=== PATIENT | male | born 1945 | race Caucasian/White ===

== ENCOUNTER 2020-06-15 13:41 | Outpatient (REF) | payer OTHER, SELFPAY | END 2020-06-15 13:42 | disposition home or self-care (01) | LOC: HO.HMGCLDS 13:41 | PROVIDERS: PCP Internal Medicine; Visit Provider Internal Medicine | DX: R30.0 Dysuria (principal) | CPT/HCPCS: 87086 ==

== ENCOUNTER 2023-01-12 12:46 | Outpatient (REF) | payer OTHER, SELFPAY ==
--- NOTE | ~2023-01-12 | US_ITS ---
EXAMINATION: US VENOUS ULTRASOUND WITH DOPPLER LOWER EXTREMITY, LEFT CLINICAL INFORMATION: Leg pain. Rule out DVT. COMPARISON: None available. TECHNIQUE: Ultrasound of the deep veins is performed from the hip to the calf with compression sonography and color and pulse Doppler assessment. Spectral analysis with color-flow imaging is performed. FINDINGS: There is thrombus seen in the left greater saphenous vein extending to the saphenofemoral junction suggestive of acute superficial thrombophlebitis. The left common femoral, superficial femoral, profunda, popliteal and visualized peroneal and posterior tibial veins in the calf are patent. No Au's cyst. US/US venous duplex LE LT IMPRESSION: No DVT demonstrated in the left lower extremity. There is superficial thrombophlebitis of the left greater saphenous vein in the thigh extending to the saphenofemoral junction. Findings were communicated to Kamar Layton by the staff cytotechnologist at the conclusion of the exam on 01/12/2023 at 1:15 PM.
== END 2023-01-12 12:47 | disposition home or self-care (01) ==
LOC: HO.US 12:46
PROVIDERS: PCP Registered Nurse; Visit Provider Emergency Medicine
DX: M79.605 Pain in left leg (principal)
CPT/HCPCS: 93971

== ENCOUNTER 2023-01-12 13:42 | Emergency (ER) | payer OTHER, SELFPAY ==
[2023-01-12 13:46] VITALS: BP 198/88; PULSE 71; RESP 18; TEMP 36.6; O2SAT 98; BMI 33.5
--- NOTE | 2023-01-12 13:46 | ECG_ITS ---
Test Reason : DVT Blood Pressure : / mmHG Vent. Rate : 069 BPM Atrial Rate : 069 BPM P-R Int : 184 ms QRS Dur : 134 ms QT Int : 424 ms P-R-T Axes : 038 -05 011 degrees QTc Int : 454 ms Normal sinus rhythm Right bundle branch block Abnormal ECG No previous ECGs available Referred By: Adan Cao Electronically Signed By:JARVIS PLAZA
--- NOTE | 2023-01-12 13:51 | ED_ITS ---
HPI - General Adult General Chief complaint: Extremity Injury, Lower <Adan Cao - Last Filed: 01/12/23 13:56> Stated complaint: dvt l leg sent in by pcp <Adan Cao - Last Filed: 01/12/23 13:56> Time Seen by Provider: 01/12/23 15:04 <Adan Cao - Last Filed: 01/12/23 13:56> Source: patient <KERRY Flores Last Filed: 01/12/23 17:41> Mode of arrival: ambulatory <KERRY Flores Last Filed: 01/12/23 17:41> Limitations: no limitations <KERRY Flores Last Filed: 01/12/23 17:41> History of Present Illness HPI narrative: Patient is a 77 year old assigned male at with a history of cardiac stents presenting to the emergency department today with a positive left lower leg DVT study. Patient states that he was sent for an US of his left lower leg by his PCP and then he was called and told that it was positive for a DVT. Patient states he was previously on blood thinners but has not been on them for a year at this point. Patient denies any dizziness, lightheadedness, abdominal pain, nausea, vomiting, fever, chills, blurry vision, double vision, loss of vision, chest pain, difficulty breathing, shortness of breath, back pain, night sweats, pain with urination, increased urinary frequency, increased urinary urgency, blood in his urine or stool, syncope or a near syncopal episode, recent trauma or falls, bowel incontinence, bladder incontinence, bowel retention, bladder retention, or any other complaints at this time. <KERRY Flores - Last Filed: 01/12/23 17:41> Associated symptoms: denies other symptoms <KERRY Flores Last Filed: 01/12/23 17:41> Treatments prior to arrival: none <KERRY Flores Last Filed: 01/12/23 17:41> Related Data Home medications: Previous Rx's Medication Instructions Recorded apixaban 5 mg (74 tabs) tablets in 5 mg PO BID #74 ea 01/12/23 a dose pack (Eliquis DVT-PE Treat 30D Start) <Adan Bailey Last Filed: 01/12/23 13:56> Allergies/adverse reactions: Allergies Allergy/AdvReac Type Severity Reaction Status Date / Time atorvastatin Allergy Unknown Verified 01/12/23 13:46 <Adan Cao - Last Filed: 01/12/23 13:56> Review of Systems Constitutional: Constitutional: Reports no additional constitutional complaints, Denies chills, Denies fever(s) and Denies night sweats <KERRY Flores - Last Filed: 01/12/23 17:41> Eyes: Eyes: Reports no additional eye complaints, Denies blurry vision, Denies change in vision, Denies diplopia, Denies eye discharge, Denies loss of vision and Denies eye pain <KERRY Flores - Last Filed: 01/12/23 17:41> ENT: Denies dizziness <KERRY Flores - Last Filed: 01/12/23 17:41> Cardiovascular: Cardiovascular: Reports no additional cardiovascular complaints, Denies chest pain, Denies lightheadedness, Denies Loss of Consciousness and Denies dyspnea <KERRY Flores - Last Filed: 01/12/23 17:41> Respiratory: Respiratory: Reports no additional respiratory complaints and Denies dyspnea <KERRY Flores - Last Filed: 01/12/23 17:41> Gastrointestinal: Gastrointestinal: Reports no additional gastrointestinal complaints, Denies abdominal pain, Denies melena, Denies hematochezia, Denies change in bowel habits and Denies change in stool character <KERRY Flores - Last Filed: 01/12/23 17:41> Genitourinary: Genitourinary: Reports no additional male genitourinary complaints, Denies hematuria, Denies oliguria, Denies difficulty urinating, Denies dysuria, Denies urinary frequency, Denies urinary hesitancy, Denies uri nary incontinence and Denies urinary urgency <KERRY Flores - Last Filed: 01/12/23 17:41> Musculoskeletal: Musculoskeletal: Reports no additional musculoskeletal complaints, Denies numbness and Denies tingling <KERRY Flores - Last Filed: 01/12/23 17:41> Neurologic: Denies dizziness, Denies loss of vision, Denies numbness and Denies tingling <KERRY Flores - Last Filed: 01/12/23 17:41> Psychiatric: Psychiatric: Reports no additional psychiatric complaints <KERRY Flores - Last Filed: 01/12/23 17:41> Endocrine: Endocrine: Reports no additional endocrine complaints <KERRY Flores - Last Filed: 01/12/23 17:41> Hematologic/Lymphatic: Hematologic/Lymphatic: Reports no additional h ematologic/lymphatic complaints <KERRY Flores - Last Filed: 01/12/23 17:41> Allergic/Immunologic: Allergic/Immunologic: Reports no additional allergic/immunologic complaints <KERRY Flores - Last Filed: 01/12/23 17:41> PMF Past Medical History Attestation statement: The following information was validated with the patient. <KERRY Flores - Last Filed: 01/12/23 17:41> Source: old records reviewed and nursing notes reviewed <KERRY Flores - Last Filed: 01/12/23 17:41> Social History Social History: Social History Smoked in Last 30 Days: No Use of substances other than those prescribed or required for medical reasons: No Advance Directives: No Advance Directives Information Provided: Yes <Adan Cao - Last Filed: 01/12/23 13:56> Physical Exam ED Vital Signs: Vital Signs - 24 hr 01/12/23 13:46 01/12/23 15:22 Temperature 98 F 97.2 F Pulse Rate 71 66 Respiratory Rate 18 16 Blood Pressure 198/88 H 140/60 H Pulse Oximetry 98 98 Oxygen Delivery Method Room Air BMI result Body Mass Index 33.5 <Adan Cao - Last Filed: 01/12/23 13:56> Vital Signs - 24 hr 01/12/23 13:46 01/12/23 15:22 Temperature 98 F 97.2 F Pulse Rate 71 66 Respiratory Rate 18 16 Blood Pressure 198/88 H 140/60 H Pulse Oximetry 98 98 Oxygen Delivery Method Room Air BMI result Body Mass Index 33.5 <KERRY Flores - Last Filed: 01/12/23 17:41> Const General: cooperative, no acute distress, alert and awake <Nisha Oconnor PA - Last Filed: 01/12/23 17:41> Nutritional Appearance: well nourished <Nisha OconnorKERRY lizarraga - Last Filed: 01/12/23 17:41> Orientation/consciousness: patient oriented x3 <Nisha Galanelham ME - Last Filed: 01/12/23 17:41> Limitations: no limitations <KERRY Flores - Last Filed: 01/12/23 17:41> HENMT Head: Yes normal to inspection and Yes atraumatic <Nisha Galanelham ME - Last Filed: 01/12/23 17:41> Ears: hearing grossly normal bilaterally and external ears normal <Nisha Oconnor PA - Last Filed: 01/12/23 17:41> General nose exam: Normal external nose present, no nasal discharge noted and no epistaxis <Nisha Oconnor PA - Last Filed: 01/12/23 17:41> Face and sinus: Yes normal facial exam, No abrasion and No laceration <Nisha Oconnor ME - Last Filed: 01/12/23 17:41> Mouth: Normal oral and palatal mucosa present, no drooling and no muffled voice <Nisha Oconnor PA - Last Filed: 01/12/23 17:41> Eyes General: appearance normal, both eyes and all related structures <Nisha Oconnor PA - Last Filed: 01/12/23 17:41> Periorbital: periorbital findings normal <Nisha Oconnor PA - Last Filed: 01/12/23 17:41> Eyelids: Yes eyelids normal <Nisha Oconnor PA - Last Filed: 01/12/23 17:41> Conjunctivae: conjunctivae normal <Nisha Oconnor PA - Last Filed: 01/12/23 17:41> Pupils: Equal, round and reactive pupils present <Nisha Oconnor PA - Last Filed: 01/12/23 17:41> EOM: EOMs intact bilaterally <Nisha Anastasia PA - Last Filed: 01/12/23 17:41> Neck Neck: Yes normal visual inspection, Yes full ROM and Yes no lymphadenopathy <Javier rudy Oconnor PA - Last Filed: 01/12/23 17:41> Chest Chest palpation & inspection: normal inspection of the chest <Nisha OconnorKERRY - Last Filed: 01/12/23 17:41> Resp Effort & Inspection: normal respiratory effort and able to speak in complete sentences <Nisha OconnorKERRY - Last Filed: 01/12/23 17:41> Auscultation: clear to auscultation bilaterally <Nisha OconnorKERRY - Last Filed: 01/12/23 17:41> Cardio Rate: regular rate <Nisha OconnorKERRY - Last Filed: 01/12/23 17:41> Rhythm: regular rhythm <Nisha Oconnor PA - Last Filed: 01/12/23 17:41> GI Inspection: Yes normal to inspection <Nisha OconnorKERRY - Last Filed: 01/12/23 17:41> Neuro General: patient oriented x3 and moves all extremities <Nisha OocnnorKERRY - Last Filed: 01/12/23 17:41> Cranial nerves: Yes Equal, round and reactive pupils present <Nisha OconnorKERRY - Last Filed: 01/12/23 17:41> Cognition (Neuro): normal cognition <Nisha OconnorKERRY - Last Filed: 01/12/23 17:41> Motor exam (neuro): 5/5 motor strength present throughout <Nisha OconnorKERRY - Last Filed: 01/12/23 17:41> Sensory Exam: Normal double simultaneous stimulation for sensation <Nisha OconnorKERRY - Last Filed: 01/12/23 17:41> Coordination: [id number] test normal <Nisha OconnorKERRY - Last Filed: 01/12/23 17:41> Extrem General: Yes normal to inspection, Yes full ROM and Yes capillary refill normal <Nisha OconnorKERRY - Last Filed: 01/12/23 17:41> Psych Appearance: grossly normal <Nisha GalanKERRY lizarraga - Last Filed: 01/12/23 17:41> Mental Status: mental status grossly normal <Nisha OconnorKERRY - Last Filed: 01/12/23 17:41> Affect: normal affect <Nisha OconnorKERRY - Last Filed: 01/12/23 17:41> Attitude: cooperative <Nisha GalanKERRY lizarraga - Last Filed: 01/12/23 17:41> Thought process: Normal thought process present <KERRY Flores - Last Filed: 01/12/23 17:41> Thought content: Normal thought content present <KERRY Flores - Last Filed: 01/12/23 17:41> Insight: Good insight present (Psych) <KERRY Flores - Last Filed: 01/12/23 17:41> Course Course Course Narrative: 77 year old male presents for evaluation of a positive left lower extremity DVT in the greater saphenous vein as an outpatient. He is on a baby aspirin only and not anticoagulated. He reports he was anticoagulated up until last year. The patient reports pain and swelling to his left leg. Denies any chest pain shortness of breath with. He is presenting from [facility] and follows with [facility] <Adan Cao - Last Filed: 01/12/23 13:56> Medical Decision Making Medical Decision Making MDM Narrative: Patient is a 77 year old assigned male at with a history of cardiac stents presenting to the emergency department today with left lower leg DVT. Patient's physical exam was unremarkable. Patient's blood work was unremarkable. Patient's left lower extremity US showed a DVT. I explained my physical exam findings as well as all test results to the patient. I answered all questions asked by the patient. I stressed the importance of the patient taking his medication as prescribed. I stressed the importance of the patient following up with his primary care provider. I stressed the importance of the patient returning to the emergency department immediately if his symptoms were to worsen or if he were to develop any dizziness, shortness of breath, difficulty breathing, chest pain, blurry vision, loss of vision, nausea, vomiting, abdominal pain, fever, chills, back pain, or any other complaints. Patient verbalized agreement and understanding with this treatment plan and discharge. <KERRY Flores - Last Filed: 01/12/23 17:41> Differential Diagnosis Differential Diagnoses: The differential diagnosis associated with the presentation includes <KERRY Flores - Last Filed: 01/12/23 17:41> left lower extremity DVT <KERRY Flores - Last Filed: 01/12/23 17:41> Lab Data MDM Lab Attestation statement: I reviewed the patient's lab results. <KERRY Flores - Last Filed: 01/12/23 17:41> Result Diagrams: 01/12/23 14:03 01/12/23 14:03 <Adan Cao - Last Filed: 01/12/23 13:56> Labs: Lab Results 01/12/23 01/12/23 01/12/23 Range/Units 14:03 14:03 14:03 WBC 6.7 (4.8-10.8) X10*3/uL RBC 4.44 L (4.60-5.80) X10*6/uL Hgb 13.0 L (14.0-18.0) g/dl Hct 39.7 L (42.0-52.0) % MCV 89.4 (80.0-98.0) fL MCH 29.3 (27.0-33.0) pg MCHC 32.7 (31.0-36.0) g/dl RDW 13.7 (11.0-16.0) % Plt Count 253 (160-400) X10*3/uL MPV 10.9 (9.4-12.4) fL Immature Gran % (Auto) 0.4 (0.0-0.4) % Neut % (Auto) 61.3 (45-73) % Lymph % (Auto) 26.3 (20-40) % [place] % (Auto) 9.9 (2-11) % Eos % (Auto) 1.8 (0-4) % Baso % (Auto) 0.3 (0-2) % Lymph # (Auto) 1.8 (1.2-4.9) X10*3/uL [place] # (Auto) 0.7 (0.1-1.2) X10*3/uL Eos # (Auto) 0.1 (0.0-0.4) X10*3/uL Baso # (Auto) 0.0 (0.0-0.2) X10*3/uL Abs Immat Gran (auto) 0.03 (0.00-0.03) X10*3/uL Absolute Neuts (auto) 4.1 (2.0-8.3) x10*3/uL Absolute Nucleated RBC 0.000 (0.0-0.012) X10*3/uL Nucleated RBC % (auto) 0.0 (0.0-0.2) /100WBC PT 10.8 (10.0-13.1) SEC INR 0.9 (0.9-1.1) APTT 28.9 (26.0-36.4) SEC Sodium 140 (135-145) mmol/L Potassium 4.4 (3.3-5.1) mmol/L Chloride 106 (96-108) mmol/L Carbon Dioxide 25 (22-29) mmol/L Anion Gap 13 (12-20) BUN 30 H (9-16) mg/dL Creatinine 1.49 H (0.5-1.4) mg/dL Estim Creat Clear Calc 49.1 Estimated GFR 46 Random Glucose 101 (60-115) mg/dL Calcium 10.2 (8.4-10.2) mg/dL Total Bilirubin 0.4 (0.0-1.0) mg/dL AST 20 (5-37) U/L ALT 15 (0-40) U/L Alkaline Phosphatase 28 L (39-117) U/L Troponin I High Sens (<3.5-35.0) ng/L B-Natriuretic Peptide (<100) pg/mL Total Protein 7.0 (6.5-8.0) g/dL Albumin 4.1 (3.5-5.0) g/dL Lipase 48 (8-78) U/L 01/12/23 01/12/23 Range/Units 14:03 14:03 WBC (4.8-10.8) X10*3/uL RBC (4.60-5.80) X10*6/uL Hgb (14.0-18.0) g/dl Hct (42.0-52.0) % MCV (80.0-98.0) fL MCH (27.0-33.0) pg MCHC (31.0-36.0) g/dl RDW (11.0-16.0) % Plt Count (160-400) X10*3/uL MPV (9.4-12.4) fL Immature Gran % (Auto) (0.0-0.4) % Neut % (Auto) (45-73) % Lymph % (Auto) (20-40) % [place] % (Auto) (2-11) % Eos % (Auto) (0-4) % Baso % (Auto) (0-2) % Lymph # (Auto) (1.2-4.9) X10*3/uL [place] # (Auto) (0.1-1.2) X10*3/uL Eos # (Auto) (0.0-0.4) X10*3/uL Baso # (Auto) (0.0-0.2) X10*3/uL Abs Immat Gran (auto) (0.00-0.03) X10*3/uL Absolute Neuts (auto) (2.0-8.3) x10*3/uL Absolute Nucleated RBC (0.0-0.012) X10*3/uL Nucleated RBC % (auto) (0.0-0.2) /100WBC PT (10.0-13.1) SEC INR (0.9-1.1) APTT (26.0-36.4) SEC Sodium (135-145) mmol/L Potassium (3.3-5.1) mmol/L Chloride (96-108) mmol/L Carbon Dioxide (22-29) mmol/L Anion Gap (12-20) BUN (9-16) mg/dL Creatinine (0.5-1.4) mg/dL Estim Creat Clear Calc Estimated GFR Random Glucose (60-115) mg/dL Calcium (8.4-10.2) mg/dL Total Bilirubin (0.0-1.0) mg/dL AST (5-37) U/L ALT (0-40) U/L Alkaline Phosphatase (39-117) U/L Troponin I High Sens 3.1 (<3.5-35.0) ng/L B-Natriuretic Peptide 73 (<100) pg/mL Total Protein (6.5-8.0) g/dL Albumin (3.5-5.0) g/dL Lipase (8-78) U/L <Adan Cao - Last Filed: 01/12/23 13:56> Lab Results 01/12/23 01/12/23 01/12/23 Range/Units 14:03 14:03 14:03 WBC 6.7 (4.8-10.8) X10*3/uL RBC 4.44 L (4.60-5.80) X10*6/uL Hgb 13.0 L (14.0-18.0) g/dl Hct 39.7 L (42.0-52.0) % MCV 89.4 (80.0-98.0) fL MCH 29.3 (27.0-33.0) pg MCHC 32.7 (31.0-36.0) g/dl RDW 13.7 (11.0-16.0) % Plt Count 253 (160-400) X10*3/uL MPV 10.9 (9.4-12.4) fL Immature Gran % (Auto) 0.4 (0.0-0.4) % Neut % (Auto) 61.3 (45-73) % Lymph % (Auto) 26.3 (20-40) % [place] % (Auto) 9.9 (2-11) % Eos % (Auto) 1.8 (0-4) % Baso % (Auto) 0.3 (0-2) % Lymph # (Auto) 1.8 (1.2-4.9) X10*3/uL [place] # (Auto) 0.7 (0.1-1.2) X10*3/uL Eos # (Auto) 0.1 (0.0-0.4) X10*3/uL Baso # (Auto) 0.0 (0.0-0.2) X10*3/uL Abs Immat Gran (auto) 0.03 (0.00-0.03) X10*3/uL Absolute Neuts (auto) 4.1 (2.0-8.3) x10*3/uL Absolute Nucleated RBC 0.000 (0.0-0.012) X10*3/uL Nucleated RBC % (auto) 0.0 (0.0-0.2) /100WBC PT 10.8 (10.0-13.1) SEC INR 0.9 (0.9-1.1) APTT 28.9 (26.0-36.4) SEC Sodium 140 (135-145) mmol/L Potassium 4.4 (3.3-5.1) mmol/L Chloride 106 (96-108) mmol/L Carbon Dioxide 25 (22-29) mmol/L Anion Gap 13 (12-20) BUN 30 H (9-16) mg/dL Creatinine 1.49 H (0.5-1.4) mg/dL Estim Creat Clear Calc 49.1 Estimated GFR 46 Random Glucose 101 (60-115) mg/dL Calcium 10.2 (8.4-10.2) mg/dL Total Bilirubin 0.4 (0.0-1.0) mg/dL AST 20 (5-37) U/L ALT 15 (0-40) U/L Alkaline Phosphatase 28 L (39-117) U/L Troponin I High Sens (<3.5-35.0) ng/L B-Natriuretic Peptide (<100) pg/mL Total Protein 7.0 (6.5-8.0) g/dL Albumin 4.1 (3.5-5.0) g/dL Lipase 48 (8-78) U/L 01/12/23 01/12/23 Range/Units 14:03 14:03 WBC (4.8-10.8) X10*3/uL RBC (4.60-5.80) X10*6/uL Hgb (14.0-18.0) g/dl Hct (42.0-52.0) % MCV (80.0-98.0) fL MCH (27.0-33.0) pg MCHC (31.0-36.0) g/dl RDW (11.0-16.0) % Plt Count (160-400) X10*3/uL MPV (9.4-12.4) fL Immature Gran % (Auto) (0.0-0.4) % Neut % (Auto) (45-73) % Lymph % (Auto) (20-40) % [place] % (Auto) (2-11) % Eos % (Auto) (0-4) % Baso % (Auto) (0-2) % Lymph # (Auto) (1.2-4.9) X10*3/uL [place] # (Auto) (0.1-1.2) X10*3/uL Eos # (Auto) (0.0-0.4) X10*3/uL Baso # (Auto) (0.0-0.2) X10*3/uL Abs Immat Gran (auto) (0.00-0.03) X10*3/uL Absolute Neuts (auto) (2.0-8.3) x10*3/uL Absolute Nucleated RBC (0.0-0.012) X10*3/uL Nucleated RBC % (auto) (0.0-0.2) /100WBC PT (10.0-13.1) SEC INR (0.9-1.1) APTT (26.0-36.4) SEC Sodium (135-145) mmol/L Potassium (3.3-5.1) mmol/L Chloride (96-108) mmol/L Carbon Dioxide (22-29) mmol/L Anion Gap (12-20) BUN (9-16) mg/dL Creatinine (0.5-1.4) mg/dL Estim Creat Clear Calc Estimated GFR Random Glucose (60-115) mg/dL Calcium (8.4-10.2) mg/dL Total Bilirubin (0.0-1.0) mg/dL AST (5-37) U/L ALT (0-40) U/L Alkaline Phosphatase (39-117) U/L Troponin I High Sens 3.1 (<3.5-35.0) ng/L B-Natriuretic Peptide 73 (<100) pg/mL Total Protein (6.5-8.0) g/dL Albumin (3.5-5.0) g/dL Lipase (8-78) U/L <KERRY Flores - Last Filed: 01/12/23 17:41> Independent Interpretation I performed an independent interpretation of an: Ultrasound <KERRY Flores - Last Filed: 01/12/23 17:41> Interpretation: My interpretation: Left lower extremity DVT <KERRY Flores - Last Filed: 01/12/23 17:41> Discharge Plan Discharge Clinical Impression: DVT (deep venous thrombosis) <Adan Cao - Last Filed: 01/12/23 13:56> Patient Disposition: Home, Self-Care <Adan Cao - Last Filed: 01/12/23 13:56> Instructions: Deep Vein Thrombosis (ED), Safe Use of Anticoagulants (ED), Blood Thinners (ED) <Adan Cao - Last Filed: 01/12/23 13:56> Additional Instructions: Follow up with your primary care provider. Return to the emergency department immediately if your symptoms worsen or if you develop any dizziness, shortness of breath, difficulty breathing, chest pain, blurry vision, loss of vision, nausea, vomiting, abdominal pain, fever, chills, back pain, or any other complaints. <Adan Cao - Last Filed: 01/12/23 13:56> Prescriptions: New Eliquis DVT-PE Treat 30D Start 5 mg (74 tabs) tablets,dose pack 5 mg PO BID Qty: 74 0RF Rx Instructions: Take 10mg (2 tablets) twice daily for 7 days followed by 5mg (1 tablet) twice daily <Adan Cao - Last Filed: 01/12/23 13:56> Referrals: Reanna Vallejo, [employer]PERVISOR [Primary Care Provider] - <Adan Cao - Last Filed: 01/12/23 13:56> Stand Alone Forms: Work/School Release <Adan Cao - Last Filed: 01/12/23 13:56> Interventions: ED Discharge Assessment Last Done: 01/12/23 15:28 <Adan Cao - Last Filed: 01/12/23 13:56> Discharge Date/Time: 01/12/23 15:29 <Adan Cao - Last Filed: 01/12/23 13:56> Print Language: Romansh <Adan Cao - Last Filed: 01/12/23 13:56>
[2023-01-12 14:10] LABS: MANUAL DIFF FLAG NO
[2023-01-12 14:15] LABS: Basophils Percent Auto 0.3 % (0-2); Eosinophils Absolute Auto 0.1 X10*3/uL (0.0-0.4); Eosinophils Percent Auto 1.8 % (0-4); Hematocrit 39.7 % (42.0-52.0); Imm Gran Abs Auto 0.03 X10*3/uL (0.00-0.03); Imm Gran Pct Auto 0.4 % (0.0-0.4); Lymphocytes Absolute Auto 1.8 X10*3/uL (1.2-4.9); Lymphocytes Percent Auto 26.3 % (20-40); Mean Corpuscular HGB Conc 32.7 g/dl (31.0-36.0); Mean Corpuscular Hemoglobin 29.3 pg (27.0-33.0); Mean Corpuscular Volume 89.4 fL (80.0-98.0); Mean Platelet Volume 10.9 fL (9.4-12.4); Monocytes Absolute Auto 0.7 X10*3/uL (0.1-1.2); Monocytes Percent Auto 9.9 % (2-11); Neutrophils Absolute Auto 4.1 x10*3/uL (2.0-8.3); Neutrophils Percent Auto 61.3 % (45-73); Platelet Count 253 X10*3/uL (160-400); Red Blood Count 4.44 X10*6/uL (4.60-5.80); Red Cell Distribution Width 13.7 % (11.0-16.0); White Blood Count 6.7 X10*3/uL (4.8-10.8)
[2023-01-12 14:24] LABS: INTERNATIONAL NORM RATIO 0.9 (0.9-1.1); Prothrombin Time 10.8 SEC (10.0-13.1)
[2023-01-12 14:27] LABS: Partial Thromboplastin Time 28.9 SEC (26.0-36.4)
[2023-01-12 14:35] LABS: Alanine Aminotransferase 15 U/L (0-40); Albumin Level 4.1 g/dL (3.5-5.0); Alkaline Phosphatase 28 U/L (39-117); Anion Gap 13 (12-20); Aspartate Amino Transferase 20 U/L (5-37); Bilirubin Total 0.4 mg/dL (0.0-1.0); Blood Urea Nitrogen 30 mg/dL (9-16); Calcium 10.2 mg/dL (8.4-10.2); Carbon Dioxide 25 mmol/L (22-29); Chloride 106 mmol/L (96-108); Creatinine Clr Calc Pharmacy 49.1; Estimated Glomerular Filt Rate 46; Glucose Random 101 mg/dL (60-115); Lipase 48 U/L (8-78); Potassium 4.4 mmol/L (3.3-5.1); Sodium 140 mmol/L (135-145)
[2023-01-12 14:40] LABS: B Type Natriuretic Peptide 73 pg/mL (<100)
[2023-01-12 14:44] LABS: Troponin-I High Sensitivity 3.1 ng/L (<3.5-35.0)
[2023-01-12 15:22] VITALS: BP 140/60; PULSE 66; RESP 16; TEMP 36.2; O2SAT 98
== END 2023-01-12 15:29 | disposition home or self-care (01) ==
PROVIDERS: Physician Assistant; Emergency Provider Emergency Medicine; PCP Registered Nurse
DX: I82.402 Acute embolism and thrombosis of unspecified deep veins of left lower extremity (principal); R06.02 Shortness of breath; I45.10 Unspecified right bundle-branch block; Z79.899 Other long term (current) drug therapy
CPT/HCPCS: 36415; 80053; 83690; 83880; 84484; 85025; 85610; 85730; 93005; 99284

== ENCOUNTER 2023-01-27 13:41 | Outpatient (REF) | payer OTHER, SELFPAY ==
--- NOTE | ~2023-01-27 | US_ITS ---
EXAMINATION: US VENOUS ULTRASOUND WITH DOPPLER LOWER EXTREMITY, LEFT CLINICAL INFORMATION: Chronic embolism and thrombus. Rule out DVT. Patient is anticoagulated. COMPARISON: Previous exam 01/12/2023 TECHNIQUE: Ultrasound of the deep veins is performed from the hip to the calf with compression sonography and color and pulse Doppler assessment. Spectral analysis with color-flow imaging is performed. FINDINGS: The visualized common femoral vein, superficial femoral vein, profunda femoral vein, popliteal vein, and the trifurcation region shows no evidence of deep venous thrombosis. There is still thrombus seen in the left greater saphenous vein in the upper thigh. This appears decreased from prior exam. This extends to 2 cm from the saphenofemoral junction. There is question of some mobility of the remaining thrombus in the greater saphenous vein. There is no popliteal fossa cyst. US/US venous duplex LE IMPRESSION: No DVT demonstrated in the left lower extremity. Interval decrease in thrombus in the greater saphenous vein compared to 01/12/2023 exam. This extends to 2 cm from the saphenofemoral junction. There is question of some mobility of the remaining thrombus in the greater saphenous vein. Findings were communicated to the ordering physician by the cytotechnologist supervisor at the completion of the exam.
== END 2023-01-27 13:42 | disposition home or self-care (01) ==
LOC: HO.US 13:41
PROVIDERS: PCP Registered Nurse; Visit Provider Registered Nurse
DX: I82.592 Chronic embolism and thrombosis of other specified deep vein of left lower extremity (principal)
CPT/HCPCS: 93971

== ENCOUNTER 2023-03-23 08:04 | Outpatient (REF) | payer OTHER, SELFPAY ==
[2023-03-23 12:20] LABS: Cholesterol 190 mg/dL; HDL Cholesterol 48 mg/dL; LDL Cholesterol Calculated 122 mg/dl; Triglycerides 102 mg/dL
== END 2023-03-23 08:05 | disposition home or self-care (01) ==
LOC: HO.HHCL 08:04
PROVIDERS: Visit Provider Registered Nurse
DX: E78.1 Pure hyperglyceridemia (principal)
CPT/HCPCS: 36415; 80061

== ENCOUNTER 2023-05-14 08:05 | Outpatient (REF) | payer OTHER, SELFPAY ==
[2023-05-14 11:51] LABS: Estimated Glomerular Filt Rate 60
== END 2023-05-14 08:06 | disposition home or self-care (01) ==
LOC: HO.HHCL 08:05
PROVIDERS: Visit Provider Surgery Vascular Surgery
DX: I70.213 Atherosclerosis of native arteries of extremities with intermittent claudication, bilateral legs (principal)
CPT/HCPCS: 36415; 82565

== ENCOUNTER 2023-11-30 11:52 | Emergency (ER) | payer OTHER, SELFPAY ==
--- NOTE | 2023-11-30 11:58 | ECG_ITS ---
Test Reason : ? A FIB Blood Pressure : / mmHG Vent. Rate : 066 BPM Atrial Rate : 066 BPM P-R Int : 226 ms QRS Dur : 088 ms QT Int : 424 ms P-R-T Axes : 041 010 029 degrees QTc Int : 444 ms Sinus rhythm with 1st degree A-V block Otherwise normal ECG When compared with ECG of 12-JAN-2023 13:54, [place] interval has increased Right bundle branch block is no longer Present Referred By: Generic ED Physician Electronically Signed By:Lewis Valdes
[2023-11-30 12:01] VITALS: BP 189/80; BP 212/108; PULSE 66; PULSE 70; RESP 20; TEMP 36.5; O2SAT 98; O2SAT 99; BMI 33.2
--- NOTE | 2023-11-30 12:15 | ED.GENADULT ---
HPI - General Adult General Chief complaint: General Medical Stated complaint: HEADACHE HYPERTENSION Time Seen by Provider: 11/30/23 12:15 Source: patient and EMS Mode of arrival: EMS Limitations: no limitations History of Present Illness HPI narrative: 78 yo male with history of CAD s/p stent presenting today for evaluation of high blood pressure. He was brought in by ambulation by [facility] where they had elevated BP reading > 170 SBP. Per patient, he has been experiencing headaches on and off for the past month. Headache are located posteriorly. He says that he is able to physically tell when his BP is elevated due to the present of these headaches and pulsatile tinnitus. He initially made the appointment today at [facility] to evaluate these symptoms. He had ECG done today at [facility] that was abnormal, with what the office initially thought was atrial fibrillation, although hard to read because of the present of diffuse artifact. On presentation, he is feeling well. Denies any headaches, chest pain, or shortness of breath. Current regimen for hypertension includes acebutolol 200 mg BID, amlodipine 5 mg QD, doxazosin 2 mg QD, hydrochlorothiazide 12.5 mg QD, and telmisartan 80 mg QD. He reports that in the past he used to take 10mg amlodipine, however it dropped his BP too low so they had to decrease back to 5mg. Follows with [facility] in [place]. complaint: high BP Onset (ago): hour(s) Location: head Radiation: non-radiation Pain Consistency: intermittent Associated symptoms: denies other symptoms Related Data Previous Rx's Medication Instructions Recorded amlodipine 10 mg tablet (Norvasc) 10 mg PO DAILY hypertension #30 11/30/23 tabs Allergies Allergy/AdvReac Type Severity Reaction Status Date / Time atorvastatin Allergy Unknown Verified 01/12/23 13:46 Review of Systems Review of Systems: Yes all other systems are reviewed and are negative [facility] Social History Social History Smoked in Last 30 Days: No Use of substances other than those prescribed or required for medical reasons: No Advance Directives: Yes Advance Directives Information Provided: No Advance Directives on File: No Physical Exam ED Vital Signs: Vital Signs - 24 hr 11/30/23 12:01 11/30/23 13:41 11/30/23 15:16 Temperature 97.7 F 98.3 F Pulse Rate 70 62 61 Respiratory Rate 20 13 17 Blood Pressure 189/80 H 163/77 H 172/78 H Pulse Oximetry 98 97 97 Oxygen Delivery Method Room Air Room Air Room Air BMI result Body Mass Index 33.2 Const General: cooperative, comfortable and no acute distress Orientation/consciousness: patient oriented x3 Limitations: no limitations HENMT Head: Yes normal to inspection Ears: hearing grossly normal bilaterally and TM's normal bilaterally Face and sinus: Yes normal facial exam Eyes General: appearance normal, both eyes and all related structures Chest Chest palpation & inspection: normal inspection of the chest Resp Effort & Inspection: normal respiratory effort and able to speak in complete sentences Auscultation: clear to auscultation bilaterally Cardio Jugular venous distension: no JVD Rate: regular rate Rhythm: regular rhythm Heart sounds: S1 normal heart sound present and S2 normal heart sound present Neuro General: patient oriented x3 Extrem General: Yes normal to inspection and Yes no clubbing, cyanosis or edema Right upper extremity: normal to inspection Left upper extremity: normal to inspection Right lower extremity: normal to inspection Left lower extremity: normal to inspection Medications Administered Discontinued Medications Generic Name Dose Route Start Last Admin Trade Name Freq PRN Reason Stop Dose Admin Amlodipine Besylate 5 mg 11/30/23 13:15 11/30/23 13:41 Amlodipine Besylate 5 Mg Tablet PO 11/30/23 13:16 5 mg ONCE ONE Administration Protocol Medical Decision Making Medical Decision Making [facility] Narrative: Rambo is a 69 year old male with past medical history of CAD s/p stent, HLD, HTN, presenting today for evaluation of elevated blood pressure. He was brought in by ambulance from [facility] where he had initially scheduled an appointment for evaluation of headaches and pulsatile tinnitus. He states that he is physically able to feel when his blood pressure is elevated due to the symptoms of headaches and a pulse in his ear. He takes BP meaurements at home and states that over the past month, before taking his medication, SBP > 170 and after taking his medication is ~ SBP 150. Current regimen is acebutolol 200 mg BID, amlodipine 5 mg QD, doxazosin 2 mg QD, hydrochlorothiazide 12.5 mg QD, and telmisartan 80 mg QD. [facility] sent Rambo here after persistent measurements with SBP > 170 (ranging 170-180). ECG completed at [facility] is difficult read secondary to diffuse artifact. ECG repeated here and showed NSR On physical exam, Rambo is persistently hypertensive with SBP ranging in 180's. He appears well and in no acute distress. Cardiac auscultation reveals regular rate and rhythm with no murmurs, rubs or gallops. Lungs are clear to auscultation with equal breath sounds. No sides of volume overload or end-organ damage. Ordered troponin for further evaluation and monitoring. Will continue routine BP measurements with one time dose amolodipine 5 mg for further management of HTN. BP was initially 189/80 on arrival. With administration of PO amlodipine 5 mg, repeat BP is 163/77. Patient is stable and denies chest pain, palpitations, or shortness of breath. Renal function and troponin is within normal limits. Will continue to monitor and plan to discharge with increase of daily amlodipine to 10 mg daily and instructions to follow up with PCP. Differential Diagnosis Differential Diagnoses: The differential diagnosis associated with the presentation includes hypertensive urgency vs emergency, refractory hypertension in response to dietary, lifestyle changes, volume overload Admission/Observation Consideration of admission/observation: Escalation of care including admission/observation considered Lab Data MDM Lab Attestation statement: I reviewed the patient's lab results. 11/30/23 13:14 11/30/23 13:14 Labs: Lab Results 11/30/23 Range/Units 13:14 WBC 6.5 (4.8-10.8) X10*3/uL RBC 4.48 L (4.60-5.80) X10*6/uL Hgb 13.3 L (14.0-18.0) g/dl Hct 39.5 L (42.0-52.0) % MCV 88.2 (80.0-98.0) fL MCH 29.7 (27.0-33.0) pg MCHC 33.7 (31.0-36.0) g/dl RDW 14.0 (11.0-16.0) % Plt Count 252 (160-400) X10*3/uL MPV 10.7 (9.4-12.4) fL Immature Gran % (Auto) 0.3 (0.0-0.4) % Neut % (Auto) 65.8 (45-73) % Lymph % (Auto) 22.5 (20-40) % [place] % (Auto) 9.3 (2-11) % Eos % (Auto) 1.9 (0-4) % Baso % (Auto) 0.2 (0-2) % Lymph # (Auto) 1.5 (1.2-4.9) X10*3/uL [place] # (Auto) 0.6 (0.1-1.2) X10*3/uL Eos # (Auto) 0.1 (0.0-0.4) X10*3/uL Baso # (Auto) 0.0 (0.0-0.2) X10*3/uL Abs Immat Gran (auto) 0.02 (0.00-0.03) X10*3/uL Absolute Neuts (auto) 4.3 (2.0-8.3) x10*3/uL Absolute Nucleated RBC 0.000 (0.0-0.012) X10*3/uL Nucleated RBC % (auto) 0.0 (0.0-0.2) /100WBC Sodium 139 (135-145) mmol/L Potassium 4.2 (3.3-5.1) mmol/L Chloride 104 (96-108) mmol/L Carbon Dioxide 28 (22-29) mmol/L Anion Gap 11 L (12-20) BUN 22 H (9-16) mg/dL Creatinine 1.20 (0.5-1.4) mg/dL Estim Creat Clear Calc 63.5 Estimated GFR 59 Random Glucose 103 (60-115) mg/dL Calcium 10.1 (8.4-10.2) mg/dL Magnesium 1.6 (1.6-2.6) mg/dL Total Bilirubin 0.4 (0.0-1.0) mg/dL Direct Bilirubin 0.2 (0.0-0.5) mg/dL AST 24 (5-37) U/L ALT 42 H (0-40) U/L Alkaline Phosphatase 36 L (39-117) U/L Troponin I High Sens < 2.7 (<3.5-35.0) ng/L Total Protein 7.5 (6.5-8.0) g/dL Albumin 4.0 (3.5-5.0) g/dL Independent Interpretation I performed an independent interpretation of an: EKG Interpretation: Normal sinus rhythm with 1st degree AV block. Ventricle rate noted to be 66 bpm and MO interval slightly increased at 226 ms. Independent Historian Clinical information obtained from an independent historian. History obtained from or confirmed by: EMS External Record Review External record reviewed: Office record and Prior outpatient labs Prescription Management I considered prescription management with: Other (additional hypertension medication) Chronic Conditions Patient?s care impacted by: Hypertension Critical Care Time Critical Care Time Critical Care Time: No Discharge Plan Discharge Clinical Impression: Hypertension Qualifiers: Hypertension type: primary hypertension Qualified Code(s): I10 - Essential (primary) hypertension Patient Disposition: Home, Self-Care Instructions: Hypertension (ED) Additional Instructions: ECG obtained today was normal sinus rhythm. Blood work obtained today was unremarkable and reassuring. Your response to additional dose of amlodipine was reassuring. BP decreased from 189/80 to 163/77. Plan to discharge on amlodipine 10 mg daily. Monitor your salt intake and attempt to limit to <2 grams of sodium/day Follow up with primary care for further maintenance and management. If you develop new or worsening symptoms call 911 or come back to the ER for further evaluation. Prescriptions: New amlodipine [Norvasc] 10 mg tablet 10 mg PO DAILY Qty: 30 0RF Discontinued Eliquis DVT-PE Treat 30D Start 5 mg (74 tabs) tablets,dose pack 5 mg PO BID Qty: 74 0RF Rx Instructions: Take 10mg (2 tablets) twice daily for 7 days followed by 5mg (1 tablet) twice daily Referrals: Vandana Stein MD [Primary Care Provider] -
[2023-11-30 13:23] LABS: MANUAL DIFF FLAG NO
[2023-11-30 13:28] LABS: Basophils Percent Auto 0.2 % (0-2); Eosinophils Absolute Auto 0.1 X10*3/uL (0.0-0.4); Eosinophils Percent Auto 1.9 % (0-4); Hematocrit 39.5 % (42.0-52.0); Hemoglobin 13.3 g/dl (14.0-18.0); Imm Gran Abs Auto 0.02 X10*3/uL (0.00-0.03); Imm Gran Pct Auto 0.3 % (0.0-0.4); Lymphocytes Absolute Auto 1.5 X10*3/uL (1.2-4.9); Lymphocytes Percent Auto 22.5 % (20-40); Mean Corpuscular HGB Conc 33.7 g/dl (31.0-36.0); Mean Corpuscular Hemoglobin 29.7 pg (27.0-33.0); Mean Corpuscular Volume 88.2 fL (80.0-98.0); Mean Platelet Volume 10.7 fL (9.4-12.4); Monocytes Absolute Auto 0.6 X10*3/uL (0.1-1.2); Monocytes Percent Auto 9.3 % (2-11); Neutrophils Absolute Auto 4.3 x10*3/uL (2.0-8.3); Neutrophils Percent Auto 65.8 % (45-73); Platelet Count 252 X10*3/uL (160-400); Red Blood Count 4.48 X10*6/uL (4.60-5.80); White Blood Count 6.5 X10*3/uL (4.8-10.8)
[2023-11-30 13:41] VITALS: BP 163/77; PULSE 62; RESP 13; O2SAT 97
[2023-11-30] MEDS: amLODIPine Besylate 5 MG TABLET PO (13:41)
[2023-11-30 13:54] LABS: Alanine Aminotransferase 42 U/L (0-40); Alkaline Phosphatase 36 U/L (39-117); Anion Gap 11 (12-20); Aspartate Amino Transferase 24 U/L (5-37); Bilirubin Direct 0.2 mg/dL (0.0-0.5); Bilirubin Total 0.4 mg/dL (0.0-1.0); Blood Urea Nitrogen 22 mg/dL (9-16); Calcium 10.1 mg/dL (8.4-10.2); Carbon Dioxide 28 mmol/L (22-29); Chloride 104 mmol/L (96-108); Creatinine Clr Calc Pharmacy 63.5; Estimated Glomerular Filt Rate 59; Glucose Random 103 mg/dL (60-115); Magnesium 1.6 mg/dL (1.6-2.6); Potassium 4.2 mmol/L (3.3-5.1); Sodium 139 mmol/L (135-145); Total Protein 7.5 g/dL (6.5-8.0)
[2023-11-30 14:02] LABS: Troponin-I High Sensitivity < 2.7 ng/L (<3.5-35.0)
[2023-11-30 15:16] VITALS: BP 172/78; PULSE 61; RESP 17; TEMP 36.8; O2SAT 97
== END 2023-11-30 19:40 | disposition home or self-care (01) ==
PROVIDERS: Physician Assistant; Emergency Provider Emergency Medicine; PCP Student in an Organized Health Care Education/Training Program
DX: I10 Essential (primary) hypertension (principal); I25.10 Atherosclerotic heart disease of native coronary artery without angina pectoris; Z79.899 Other long term (current) drug therapy
CPT/HCPCS: 36415; 80048; 80076; 83735; 84484; 85025; 93005; 99283; 99284

== ENCOUNTER → 2023-11-30 11:58 | Outpatient (BNV) | payer SELFPAY | PROVIDERS: Emergency Provider Emergency Medicine; PCP Student in an Organized Health Care Education/Training Program; Visit Provider Internal Medicine Cardiovascular Disease | DX: I44.0 Atrioventricular block, first degree (principal) | CPT/HCPCS: 93010 ==

== ENCOUNTER 2024-01-28 08:02 | Outpatient (REF) | payer OTHER, SELFPAY ==
[2024-01-28 11:39] LABS: Hematocrit 38.1 % (42.0-52.0); Hemoglobin 12.7 g/dl (14.0-18.0); Mean Corpuscular HGB Conc 33.3 g/dl (31.0-36.0); Mean Corpuscular Hemoglobin 30.2 pg (27.0-33.0); Mean Corpuscular Volume 90.7 fL (80.0-98.0); Mean Platelet Volume 11.6 fL (9.4-12.4); Platelet Count 256 X10*3/uL (160-400); Red Cell Distribution Width 13.8 % (11.0-16.0)
[2024-01-28 12:04] LABS: Estimated Average Glucose 148 mg/dL; Hemoglobin A1c % 6.8 % (<6.0)
[2024-01-28 12:27] LABS: HBS Num1 0.64 mIU/mL (0-7.99); HBc Num1 0.15 S/CO (0.00-0.79); HBsAGNum1 0.39 S/CO (0.00-0.99); HIV AB/AG Nonreactive (Nonreactive); HIV Num 1 0.09 S/CO (0.00-0.99); Hepatitis B Core Antibody Nonreactive (Nonreactive); Hepatitis B Surface Antigen Negative (Negative); ~HepC Num1 0.09 S/CO (0.00-0.79); ~Hepatitis B Surface Antibody NONREACTIVE (Nonreactive); ~Hepatitis C Antibody Nonreactive (Nonreactive)
[2024-01-28 12:29] LABS: Alanine Aminotransferase 18 U/L (0-40); Albumin Level 4.1 g/dL (3.5-5.0); Alkaline Phosphatase 29 U/L (39-117); Anion Gap 14 (12-20); Aspartate Amino Transferase 20 U/L (5-37); Bilirubin Total 0.5 mg/dL (0.0-1.0); Blood Urea Nitrogen 25 mg/dL (9-16); Calcium 10.1 mg/dL (8.4-10.2); Carbon Dioxide 25 mmol/L (22-29); Chloride 106 mmol/L (96-108); Cholesterol 191 mg/dL (<200); Estimated Glomerular Filt Rate 58; Glucose Random 130 mg/dL (60-115); HDL Cholesterol 52 mg/dL (>40); Iron 106 mcg/dL (45-160); LDL Cholesterol Calculated 114 mg/dL (<100); Percent Iron Saturation 29 % (15-50); Potassium 4.5 mmol/L (3.3-5.1); Sodium 140 mmol/L (135-145); Syphilis Screen Nonreactive (Nonreactive); Total Iron Binding Capacity 363 mcg/dL (228-428); Total Protein 7.6 g/dL (6.5-8.0); Triglycerides 125 mg/dL (<150); Unsaturated Iron Binding 257 ug/dL; Uric Acid 5.3 mg/dL (3.4-7.0)
[2024-01-28 12:34] LABS: Ferritin 189 ng/mL (20-250); TSH reflex Free T4 1.19 uIU/mL (0.32-4.0); Vitamin D 25-OH Total 33.3 ng/mL (>30)
[2024-01-28 13:10] LABS: CT PCR NOT DETECTED (Not Detect.); NG PCR NOT DETECTED (Not Detect.)
[2024-01-28 13:50] LABS: Folate 9.4 ng/mL (> or = 4.0); Vitamin B12 415 pg/mL (200-900)
== END 2024-01-28 08:03 | disposition home or self-care (01) ==
LOC: HO.HHCL 08:02
PROVIDERS: Visit Provider Student in an Organized Health Care Education/Training Program
DX: Z00.00 Encounter for general adult medical examination without abnormal findings (principal); Z20.2 Contact with and (suspected) exposure to infections with a predominantly sexual mode of transmission
CPT/HCPCS: 0353U; 80053; 80061; 82306; 82607; 82728; 82746; 83036; 83540; 84443; 84550; 85027; 86704; 86706; 86780; 86803; 87340; 87389

== ENCOUNTER 2024-07-07 08:15 | Outpatient (REF) | payer OTHER, SELFPAY ==
[2024-07-07 11:25] LABS: Estimated Average Glucose 134 mg/dL; Hemoglobin A1C 141.1301 umol/L; Hemoglobin A1c % 6.3 % (<6.0); Total Hemoglobin (HGBA1C) 3144.9941 umol/L
[2024-07-07 11:37] LABS: Alanine Aminotransferase 18 U/L (0-40); Alkaline Phosphatase 28 U/L (39-117); Anion Gap 12 (12-20); Aspartate Amino Transferase 21 U/L (5-37); Bilirubin Total 0.4 mg/dL (0.0-1.0); Blood Urea Nitrogen 29 mg/dL (9-16); Calcium 10.4 mg/dL (8.4-10.2); Carbon Dioxide 26 mmol/L (22-29); Chloride 106 mmol/L (96-108); Cholesterol 168 mg/dL (<200); Estimated Glomerular Filt Rate 54; Glucose Random 110 mg/dL (60-115); HDL Cholesterol 49 mg/dL (>40); LDL Cholesterol Calculated 96 mg/dL (<100); Potassium 4.2 mmol/L (3.3-5.1); Sodium 140 mmol/L (135-145); Total Protein 7.3 g/dL (6.5-8.0); Triglycerides 115 mg/dL (<150)
[2024-07-07 12:01] LABS: Creatinine Urine 88.27 mg/dL; Microalbum/Creatinine Ratio Ur 13.5 ug/mg cr (<30)
[2024-07-07 12:06] LABS: Folate 8.7 ng/mL (> or = 4.0); Vitamin B12 311 pg/mL (200-900)
== END 2024-07-07 08:16 | disposition home or self-care (01) ==
LOC: HO.HHCL 08:15
PROVIDERS: Visit Provider Student in an Organized Health Care Education/Training Program
DX: E11.9 Type 2 diabetes mellitus without complications (principal)
CPT/HCPCS: 36415; 80053; 80061; 82043; 82570; 82607; 82746; 83036

== ENCOUNTER 2025-01-04 08:28 | Outpatient (REF) | payer OTHER, SELFPAY ==
--- OUTSIDE RECORDS SUMMARY | 2025-01-04 08:43 | XMS_ITS | Clinical Summary ---
Author Organization [facility] Address [address] [place] [address] Care Team Providers Care Bathhouse Attendant Name Role Phone Vandana Stein Primary Care Provider Allergies Active Allergy Reactions Criticality Noted Date Comments Pcmpefk-[id number]-[id number] Reductase Inhibitors Blurry vision 09/03/2017 Medications allopurinol (ZYLOPRIM) 300 mg tablet Take 300 mg by mouth. Active magnesium gluconate (MAGONATE) 27 mg (500 mg) tablet Take 250 mg by mouth. Active acebutoloL (SECTRAL) 200 mg capsule Take 200 mg by mouth 2 times a day. Active PREVIDENT 5000 ENAMEL PROTECT 1.1-5 % paste BRUSH FOR 2 MINUTES TWICE DAILY, DO NOT RINSE OR SPIT AFTER USE. DO NOT DRINK OR EAT FOR 1 HOUR AFTER USE 2 06/24/2017 Active ezetimibe (ZETIA) 10 mg tablet TAKE ONE TABLET BY MOUTH EVERY DAY 90 tablet 3 09/28/2017 Active fenofibrate micronized (LOFIBRA) 67 mg capsule Take 1 capsule (67 mg total) by mouth every morning before breakfast. 30 capsule 11 12/07/2017 Active aspirin 81 mg EC tablet Take 1 tablet (81 mg total) by mouth daily. 30 tablet 11 03/11/2018 Active doxazosin (CARDURA) 2 mg tablet Take 2 mg by mouth daily. 5 04/30/2018 Active VOLTAREN 1 % gel APPLY 2 GRAMS TO AFFECTED AREA(S) FOUR TIMES DAILY 0 01/29/2018 Active telmisartan (MICARDIS) 80 mg tablet Take 1 tablet (80 mg total) by mouth daily. 90 tablet 11/29/2018 Active fenofibrate (TRICOR) tablet 160 mg Take 1 tablet (160 mg total) by mouth daily. 90 tablet 11/29/2018 Active Vitamin D3 25 mcg (1,000 unit) capsule Take 1 capsule by mouth once a day. 08/15/2021 Active hydroCHLOROthia zide (HYDRODIURIL) 12.5 mg tablet Activ e Proctosol HC 2.5 % rectal cream APPLY A THIN LAYER TO AFFECTED AREA(S) 2-4 TIMES PER DAY 08/13/2021 Active psyllium (METAMUCIL) powder Active amLODIPine (NORVASC) 5 mg tabletIndicatio ns:Unstable angina (HCC) Take 1 tablet (5 mg total) by mouth once a day. 90 tablet 3 10/16/2021 Active nitroglycerin (NITROSTAT) 0.4 mg SL tablet Dissolve 1 tablet under the tongue every 5 minutes for up to 3 doses as needed for chest pain. If no relief, dial 911. 25 tablet 3 05/13/2023 Active Active Problems Problem Noted Date Diagnosed Date Right bundle branch block (RBBB) 10/16/2021 Assessment & Plan (10/16/2021 10:02 AM EST): Patient has right bundle branch block with first-degree AV block on ECG in the office today. This is different from prior normal ECG post PCI in 2017. Discussed in the future there may be progression of his conduction disturbance that could result in PPM. -Stable for now. 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 daily, acebutolol 200 mg p.o. twice daily, HCTZ 12.5 mg p.o. daily, and amlodipine 2.5 mg daily. Recently his PCP increased his amlodipine to 10 mg however the patient felt symptomatic with documented low blood pressures therefore has opted to continue at 2.5 mg p.o. daily. The BP log that the patient brought to clinic over the last 2 months has demonstrated increased BPs at the reduced dose. -Increase amlodipine to 5 mg p.o. daily -Continue telmisartan, acebutolol, and hydrochlorothiazide. Assessment & Plan (09/05/2017 8:16 AM EST): -Chronic, stable. -Continue home HCTZ 12.5 daily, Telmisartan 80mg daily and Acebutolol 200mg BID -Amlodipine 2.5mg daily (new) -Cardiac diet Other hyperlipidemia 09/03/2017 Assessment & Plan (10/16/2021 10:05 AM EST): Patient has hyperlipidemia and has been intolerant to statins currently on fenofibrate and Zetia. Last lipid panel in 09/01/2017 demonstrated a LDL of 118. -Assess LDL in clinic today, consideration for PCSK9 inhibitor if patient were to remain not at goal. Assessment & Plan (09/05/2017 8:17 AM EST): -Hx statin allergy (transient loss of eyesight/blurry vision) -Continue home Fenofibrate 160mg daily -Consider initiation of Crestor as outpatient. Pt states he has only been on 1 statin in the past but not sure which one. -Last lipid profile 09/01: total 196, trig 103, HDL 57, LDL 118 Chest pain 09/03/2017 Coronary artery disease invo lving [place] coronary artery of [place] heart without angina pectoris 09/03/2017 Assessment & Plan (10/16/2021 10:00 AM EST): Patient has CAD with high risk PCI to LAD and RCA on 09/04/2017. He has maintained on aspirin/Plavix since the intervention and has done well. No recurring symptoms of angina. Has stable dyspnea on exertion that is not progressively getting worse. -Discussed discontinuing Plavix as it has been over 4 years since his PCI. -Maintain on aspirin monotherapy. -Continue acebutolol 200 mg p.o. twice daily, telmisartan 80 mg p.o. daily, fenofibrate and ezetimibe. Assessment & Plan (09/05/2017 9:42 AM EST): -Pt presented with exertional chest pain & was found to have severe 2 vessel coronary artery disease involving the LAD and RCA and mildly elevated LVEDP on 09/03/17. -Heparin gtt initiated & CT surgery consulted for potential CABG. -Pt now s/p high risk PCI 09/04/17 with Syngery JOZEF x2 to LAD and Synergy JOZEF x1 to RCA. -Pt loaded on Ticagrelor prior to PCI and will cont Ticagrelor 90mg BID for 1 month (pt has card for 1 mo free), then transition to Plavix 75mg daily. -Continue home Telmisartan 80mg daily, acebutolol 200mg BID, PRN SL Nitro, Fenofibrate 160mg nightly, and ASA 81mg daily. -Post PCI labs and EKG this AM stable/unremarkable. -Stop Imdur on d/c given successful PCI yesterday. -Nutrition consult completed 09/03 Unstable angina 09/03/2017 Benign prostatic hyperplasia with nocturia 09/03 Assessment & Plan (09/03/2017 1:38 PM EST): -Continue home Doxazosin 1mg nightly Gout 09/03/2017 Assessment & Plan (09/03/2017 1:35 PM EST): -Continue home Allopurinol 300mg daily Family History Medical History Relation Name Comments Heart disease Father Breast cancer Mother Prostate cancer Neg Hx Relation Name Status Comments Father (Age 47) Mother (Age 50) Social History Tobacco Use Types Packs/Day Years Used Date Smoking Tobacco: Former Cigarettes 1 10 1 965 - 1974 Smokeless Tobacco: Never Tobacco Cessation:Counseling Given: Not Answered Alcohol Use Standard Drinks/Week Comments No 0 (1 standard drink = 0.6 oz pur e alcohol) Sex and Gender Information Value Date Recorded Sex Assigned at Male 10/01/2021 7:05 AM EST Legal Sex Male 3:31 PM EST Gender Identity Male 10/01/2021 7:05 AM EST Sexual Orientation Straight 10/01/2021 7: 05 AM EST Last Filed Vital Signs Vital Sign Reading Time Taken Comments Blood Pressure 161/69 11/25/2022 3:17 PM EDT Pulse 68 11/25/2022 3:15 PM EDT Temperature 36.4 ??C (97.5 ??F) 09/05/2017 5:00 AM ES T Respiratory Rate 16 11/25/2022 3:15 PM EDT Oxygen Saturation 97% 11/25/2022 3:15 PM EDT Inhaled Oxygen Concentration - - Weight 98.4 kg (217 lb) 11/25/2022 3:15 PM EDT Height 172.7 cm (5' 8 ) 11/25/2022 3:15 PM EDT Body Mass Index 32.99 11/25/2022 3:15 PM EDT Plan of Treatment Health Maintenance Due Date Last Done Comments Pneumococcal Vaccine: 50+ Years (1 of 1 - PCV) 1997 Zoster Vaccines (1 of 2) 1997 RSV Vaccine (60+ years old and patients) (1 - 1-dose 75+ series) 2022 Alcohol/Substance Use Screening 09/07/2024 Depression Screening and Follow-Up 09/07/2024 Health Care Proxy Review 09/07/2024 [employer] Annual Screening 09/07/2024 COVID-19 Vaccine ( season) 2025 07/27/2024, 06/22/2023, 07/11/2022, Additional history exists Basic Metabolic Panel 07/07/2025 07/07/2024 , 01/12/2023, 10/22/2022, Additional history exists DTaP,Tdap,and Td Vaccines (2 - Td or Tdap) 04/01/2026 04/01/2016 Hepatitis C Screening Completed 01/28/2024 Influenza Vaccine Completed 06/23/2024, , 06/27/2022, Additional history exists Colon Cancer Screening Discontinued FOBT / Fit Test Discontinued 07/21/2024, 06/09, 10/22/2022 Cologuard Discontinued Colonoscopy Discontinued Hepatitis B Vaccines Aged Out No long er eligible based on patient's age to complete this topic Sigmoidoscopy Discontinued Medical Devices Implanted Type Area Drier Attendant Device Identifier Shelf Expiration Date Model / Serial / Lot System Stent Coronary [employer] Bioabsorbable Polymer [id number] Synergy - S0 - [id number] Implanted:Qty: 1 on 09/04/2017 by Chris Reyes MD at [facility] Stent Left: Coronary [email or web address] [id number] 04/30/2018 73016-37 30 / 0 / [id number] System Stent Coronary [employer]or[employer] Eluting Bioabsorbable Polymer [id number] Synergy - S0 - [id number] Implanted:Qty: 1 on 09/04/2017 by Chris Reyes MD at [facility] Stent Left: Coronary [employer] [id number] 07/08/2018 88818-08 25 0 / [id number] System Stent Coronary [employer]or[employer] Eluting Bioabsorbable Polymer [id number] Synergy - S0 - [id number] Implanted:Qty: 1 on 09/04/2017 by Chris Reyes MD at [facility] Stent Right: Coronary [employer] [id number] 05/11/2018 95961-12 0 / [id number] Procedures * Due to [place] law, this organization might not be sharing negative HIV tests. Procedure Name Priority Date/Time Associated Diagnosis Comments BASIC METABOLIC PANEL STAT 09/05/2017 9:32 AM EST from Last 3 Months or Most Recently Relevant to Health Maintenance Results * Due to [place] law, this organization might not be sharing negative HIV tests. * (ABNORMAL) Basic Metabolic Panel (09/05/2017 9:32 AM EST) NA 136 135 - 145 mmol/L 09/05/2017 10:40 AM EST [facility] [facility] K 4.0 3.5 - 5.3 mmol/L 09/05/2017 10:40 AM EST [facility] [facility] Cl 100 97 - 110 mmol/L 09/05/2017 10:40 AM EST [facility] CO2 27 24 - 32 mmol/L 09/05/2017 10:40 AM EST [facility] [facility] BUN 26(H) 7 - 23 mg/dL 09/05/2017 10:40 AM EST [facility] [facility] Creatinine 1.27 0.60 - 1.30 mg/dL 09/05/2017 10:40 AM EST [facility] [facility] Glucose 123(H) 70 - 99 mg/dL 09/05/2017 10:40 AM EST [facility] Calcium 9.5 8.7 - 10.7 mg/dL 09/05/2017 10:40 AM EST [facility] Anion Gap 9 5 - 15 09/05/2017 10:40 AM EST [facility] [facility] eGFR Non- 57(L) >=90 mL/min/BSA 09/05/2017 10:40 AM EST [facility] Comment: Units = mL/min/1.73 m2 Glomerular Filtration Rate (GFR) is estimated based on the CKD-EPI Creatinine Equation (2009). For Americans multiply results by 1.159. Stage ?Description ? GFR 1 ? Normal ? >=90 mL/min/BSA 2 ? Mildly decreased GFR ? 60-89 mL/min/BSA 3 ? Moderately decreased GFR ? 30-59 mL/min/BSA 4 ? Severely decreased GFR ? 15-29 mL/min/BSA 5 ? Kidney Failure ? <15 mL/min/BSA Blood specimen (specimen) Structure of peripheral vein / Unknown 09/05/2017 9:32 AM EST 09/05/2017 9:58 AM EST us Angela Acevedo [employer]LECT[employer]IC METER [employer] LAB BLOOD ORDERABLES Final R esult [facility] [address] [place] [address], from Last 3 Months or Most Recently Relevant to Health Maintenance Insurance HSNO/FREE CARE Advance Directives * Full Code (Latest Code Status on File) Date Activated Date Inactivated Comments 09/04/2017 5:29 PM 09/05/2017 3:02 PM * Full Code Date Activated Date Inactivated Comments 09/03/2017 12:19 PM 09/04/2017 5:29 PM * Full Code Date Activated Date Inactivated Comments 09/03/2017 11:20 AM 09/03/2017 12:19 PM * Full Code Date Activated Date Inactivated Comments 09/03/2017 9:36 AM 09/03/2017 11:20 AM Care Teams Bathhouse Attendant Relationship Specialty Start Date End Date Vandana Stein [address] [place] [id number] PCP - General 02/17/24
--- OUTSIDE RECORDS SUMMARY | 2025-01-04 08:43 | XMS_ITS | Encounter Summary ---
Author Organization [employer] Address [address] [facility] 7t [place] [address] Care Team Providers Care Cat Swamper Name Role Phone Vandana Stein MD Primary Care Pro vider Reason for Visit * Reason Comments Med Refill Encounter Details Date Type Department Care Team ([facility] st Contact Info) Description 10/05/2023 Refill [facility] WALK-IN [address] [phone] Ignacio Randolph MD [address] [place], [place] [phone] COVID-19 virus infection Social History Tobacco Use Types Packs/Day Years Used Date Smoking Tobacco: Former Cigarettes Q uit: 1980 Passive Smoke Exposure: Never Smokeless Tobacco: Never Alcohol Use Standard Drinks/Week Comments Yes 2 (1 standard drink = 0.6 oz pur e alcohol) Depression Answer Date Recorded Patient Health Questionnaire-9 Score 0 02/27/2023 Housing Stability Answer Date Recorded What is your housing situation today? I have marni eric 06/22/[address] you li ve. Do you have problems with any of the following? None of the above 06/22/2023 Food Insecurity Answer Date Recorded Within the past 12 months, y ou worried that your food would run out before you got money to buy more: Never True 06/22/2023 Within the past 12 months,th e food you bought just didn't last and you didn't have enough money to get more: Never True Transportation Answer Date Recorded In the past 12 months, has l ack of transportation kept you from medical appts, meetings, work or from getting things needed for daily living? No 06/22/2023 Utilities Answer Date Recorded In the past 12 months, has t he electric, gas, oil or water company threatened to shut off services in your home? No 06/22/2023 Depression Answer Date Recorded Patient Health Questionnaire-2 Score 0 02/27/2023 Sex and Gender Information Value Date Recorded Sex Assigned at Male 07/07/2022 10:27 AM EDT Legal Sex Male 10:27 AM EDT Gender Identity Male 07/07/2022 10:27 AM EDT Sexual Orientation Straight 12/29/2023 10 :45 AM EDT documented as of this encounter Miscellaneous Notes * Telephone Encounter - Vandana De Dios MD - 10/05/2023 5:06 PM EST Need to eval pt ,not recommend chronic nasal steroids documented in this encounter Plan of Treatment Upcoming Encounters Date Type Department Care Team (Late st Contact Info) Description 01/12/2025 11:30 AM EDT Office Visit [facility] MEDICINE [address] [place] [address] Vandana Stein MD [address] [place] [address] documented as of this encounter Visit Diagnoses Diagnosis COVID-19 virus infection documented in this encounter Additional Health Concerns Assessment Noted Time PHQ-9 Depression Total Score: 0 02/28/20 9:45 AM EDT documented as of this encounter Care Teams Cat Swamper Relationship Specialty Start Date End Date Vandana Stein MD [address] [place] [address] PCP - General Internal Medicine 03/02/23 documented as of this encounter
--- OUTSIDE RECORDS SUMMARY | 2025-01-04 08:43 | XMS_ITS | Encounter Summary ---
Author Organization [employer] Address [address] [place] [address] [place] [address] Care Team Providers Care Radiologic Tech Name Role Phone Vandana Stein MD Primary Care Pro vider Reason for Visit * Reason Onset Date Comments PA 11/12/2023 Prior Authorization 11/12/2023 Encounter Details Date Type Department Care Team (Late st Contact Info) Description 11/12/2023 Telephone [facility] MEDICINE [address] [place], [place] [phone] Vandana Stein MD [address] [place], [place] [phone] PA; Prior Authorization Social History Tobacco Use Types Packs/Day Years [...] encounter Miscellaneous Notes * Telephone Encounter - Cecilia Conner - 11/13/2023 9:45 AM EST PLEASE READ MESSAGE BELOW AND ADVICE, IF AGREE PROVIDE NOTES AND DX TO SUPPORT THE NEED. * Telephone Encounter - Leelee Patel - 11/12/2023 8:35 AM EST Tc from pt requesting PA for Micardis 80 MG tablet. Pt without med for 2 days documented in this encounter Plan of Treatment Upcoming Encounters Date Type Department Care Team (Late st Contact Info) Description 01/12/2025 11:30 AM EDT Office Visit [facility] MEDICINE [address] [place] [address] Vandana Stein MD [address] [place] [address] documented as of this encounter Visit Diagnoses Not on filedocumented in this encounter Additional Health Concerns Assessment Noted Time PHQ-9 Depression Total Score: 0 02/28/20 9:45 AM EDT documented as of this encounter Care Teams Radiologic Tech Relationship Specialty Start Date End Date Vandana Stein MD [address] [place] [address] PCP - General Internal Medicine 03/02/23 documented as of this encounter
--- OUTSIDE RECORDS SUMMARY | 2025-01-04 08:43 | XMS_ITS | Encounter Summary ---
Author Organization [employer] Address [address] [place] [address] [place] [address] Care Team Providers Care Radio Electronics Technician Name Role Phone Vandana Stein MD Primary Care Pro vider Reason for Visit * Reason Onset Date Comments Med Refill 11/14/2024 Encounter Details Date Type Department Care Team (Late st Contact Info) Description 11/14/2024 Refill [facility] MEDICINE [address] [place], [place] [phone] Vandana Stein MD [address] [place], [place] [phone] Social History Tobacco Use Types Packs/Day Years Used Date Smoking Tobacco: Former Cigarettes Q uit: 1980 Passive Smoke Exposure: Never Smokeless Tobacco: Never Comments:Started smoking at his 20 y of age and stopped at his 33-stopped 45 y ago, smoke for 13 years , Used to smoke 1 PQT a day . PQT calc 13 a year -no need for lung ca screening Alcohol Use Standard Drinks/Week Comments Yes 2 (1 standard drink = 0.6 oz pur e alcohol) social Depression Answer Date Recorded Patient Health Questionnaire-9 Score 1 12/29/2023 Patient Health Questionnaire-9 Score 1 12/29/2023 Last PHQ-9: Questionnaire Data Not on file 0 12/29/2023 Housing Stability Answer Date Recorded What is your housing situation today? I have marni eric 05/04/[address] you li ve. Do you have problems with any of the following? None of the above 05/04/2024 Food Insecurity Answer Date Recorded Within the past 12 months, y ou worried that your food would run out before you got money to buy more: Never True 05/04/2024 Within the past 12 months,th e food you bought just didn't last and you didn't have enough money to get more: Never True Transportation Answer Date Recorded In the past 12 months, has l ack of transportation kept you from medical appts, meetings, work or from getting things needed for daily living? No 05/04/2024 Utilities Answer Date Recorded In the past 12 months, has t he electric, gas, oil or water company threatened to shut off services in your home? No 05/04/2024 Depression Answer Date Recorded Patient Health Questionnaire-2 Score 0 12/29/2023 Sex and Gender Information Value Date Recorded Sex Assigned at Male 07/07/2022 10:27 AM EDT Legal Sex Male 10:27 AM EDT Gender Identity Male 07/07/2022 10:27 AM EDT Sexual Orientation Straight 12/29/2023 10 :45 AM EDT documented as of this encounter Plan of Treatment Upcoming Encounters Date Type Department Care Team (Late st Contact Info) Description 01/12/2025 11:30 AM EDT Office Visit [facility] MEDICINE [address] [place] [address] Vandana Stein MD [address] [place] [address] documented as of this encounter Visit Diagnoses Not on filedocumented in this encounter Additional Health Concerns Assessment Noted Time PHQ-9 Depression Total Score: 1 12/29/19 24 10:27 AM EDT documented as of this encounter Care Teams Radio Electronics Technician Relationship Specialty Start Date End Date Vandana Stein MD [address] [place] [address] PCP - General Internal Medicine 03/02/23 documented as of this encounter
--- OUTSIDE RECORDS SUMMARY | 2025-01-04 08:43 | XMS_ITS | Referral Summary ---
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 09/03/2017 Assessment & [...] PM EST): -Continue home Allopurinol 300mg daily Social History Tobacco Use Types Packs/Day Years Used Date Smoking Tobacco: Former Cigarettes 1 10 1 5 - 1974 Smokeless Tobacco: Never Tobacco Cessation:Counseling [...] 11/25/2022 3:15 PM EDT Plan of Treatment Not on file Medical Devices Implanted Type Area Drop Wire Aliner Device Identifier Shelf Expiration Date Model / Serial / Lot System Stent Coronary [employer] Eluting Bioabsorbable Polymer [id number] Synergy - S0 - [id number] Implanted:Qty: 1 on 09/04/2017 by Chris Reyes MD at [facility] Stent Left: Coronary [employer] [id number] 04/30/2018 [id number] 30 / 0 / [id number] System Stent Coronary Monorail Drug Eluting Bioabsorbable Polymer [id number] Synergy - S0 - [id number] Implanted:Qty: 1 on 09/04/2017 by Chris Reyes MD at [facility] Stent Left: Coronary [employer] [id number] 07/08/2018 [id number] 25 / 0 / [id number] System Stent Coronary Monorail Drug Eluting Bioabsorbable Polymer [id number] Synergy - S0 - [id number] Implanted:Qty: 1 on 09/04/2017 by Chris Reyes MD at [facility] Stent Right: Coronary [employer] [id number] 05/11/2018 [id number] 25 / 0 / [id number] Procedures * Due to [place] state law, this organization might not be sharing negative HIV tests. Procedure Name Priority Date/Time Associated Diagnosis Comments BASIC METABOLIC PANEL STAT 09/05/2017 9:32 AM EST from Last 3 Months or Most Recently Relevant to Health Maintenance Results * Due to [place] state law, this organization might not be sharing negative HIV tests. * (ABNORMAL) Basic Metabolic Panel (09/05/2017 9:32 AM EST) NA 136 135 - 145 mmol/L 09/05/2017 10:40 AM EST [facility] [employer] K 4.0 3.5 - 5.3 mmol/L 09/05/2017 10:40 AM EST [facility] [employer] Cl 100 97 - 110 mmol/L 09/05/2017 10:40 AM [facility] [employer] CO2 27 24 - 32 mmol/L 09/05/2017 10:40 AM [facility] [employer] BUN 26(H) 7 - 23 mg/dL 09/05/2017 10:40 AM [facility] [employer] Creatinine 1.27 0.60 - 1.30 mg/dL 09/05/2017 10:40 AM [facility] [facility] Glucose 123(H) 70 - 99 mg/dL 09/05/2017 10:40 AM [facility] [facility] Calcium 9.5 8.7 - 10.7 mg/dL 09/05/2017 10:40 AM [facility] Anion Gap 9 5 - 15 09/05/2017 10:40 AM [facility] [facility] eGFR Non- 57(L) >=90 mL/min/BSA 09/05/2017 10:40 AM [facility] Comment: Units = [...] EST 09/05/2017 9:58 AM EST us Angela AlissonJennie Acevedo [employer] LAB BLOOD ORDERABLES Final R esult [facility] [employer] [address] [place] [address], from Last 3 Months or Most Recently [...] 9:36 AM 09/03/2017 11:20 AM Care Teams Special Education Teacher Relationship Specialty Start Date End Date Vandana Stein [address] [place] [phone] PCP - General 02/17/24
--- OUTSIDE RECORDS SUMMARY | 2025-01-04 08:43 | XMS_ITS | Encounter Summary ---
Author Organization [employer] Address [address] [place] [address] Care Team Providers Care Equine Science Instructor Name Role Phone Vandana Stein MD Primary Care Pro vider Encounter Details Date Type Department Care Team (Late Contact Info) Description [facility]01[facility] [address] [place] [address] [phone] Vandana Stein MD [address] [place], [place] [phone] Social History Tobacco Use Types Packs/Day Years Used Date Smoking Tobacco: Former Cigarettes Q uit: 1980 Passive Smoke Exposure: Never Smokeless Tobacco: Never Alcohol Use Standard Drinks/Week Comments Yes 2 (1 standard drink = 0.6 oz pur e alcohol) Depression Answer Date Recorded Patient Health Questionnaire-9 Score 0 02/27/2023 Depression Answer Date Recorded Patient Health Questionnaire-2 Score 0 02/27/2023 Sex and Gender Information Value Date Recorded Sex Assigned at Male 07/07/2022 10:27 AM EDT Legal Sex Male 10:27 AM EDT Gender Identity Male 07/07/2022 10:27 AM EDT Sexual Orientation Straight 12/29/2023 10 :45 AM EDT documented as of this encounter Plan of Treatment Upcoming Encounters Date Type Department Care Team (Late Contact Info) Description 01/12/2025 11:30 AM EDT Office Visit [facility] MEDICINE [address] [place] [address] Vandana Stein MD [address] [place], [place] [phone] documented as of this encounter Visit Diagnoses Not on filedocumented in this encounter Additional Health Concerns Assessment Noted Time PHQ-9 Depression Total Score: 0 02/28/20 9:45 AM EDT documented as of this encounter Care Teams Equine Science Instructor Relationship Specialty Start Date End Date Vandana Stein MD [address] [place] [phone] PCP - General Internal Medicine 03/02/23 documented as of this encounter
--- OUTSIDE RECORDS SUMMARY | 2025-01-04 08:43 | XMS_ITS | Encounter Summary ---
Author Organization [employer] Address [address] [place] [address] 7 [place] [address] Care Team Providers Care Termite Technician Name Role Phone Vandana Stein MD Primary Care Pro vider Reason for Visit * Reason Onset Date Comments Med Refill 11/08/2024 Encounter Details Date Type Department Care Team (Late st Contact Info) Description 11/08/2024 Refill [facility] MEDICINE [address] [place], [place] [phone] Vandana Stein MD [address] [place], [place] [phone] Chronic gout involving toe without tophus, unspecified cause, unspecified laterality Social History Tobacco Use Types Packs/Day Years [...] Description 01/12/2025 11:30 AM EDT Office Visit [facility] MEDICINE [address] [place] [address] Vandana Stein MD [address] [place] [address] documented as of this encounter Visit Diagnoses Diagnosis Chronic gout involving toe without tophus, unspecified cause, unspecified laterality documented in this encounter Additional Health Concerns Assessment Noted Time PHQ-9 Depression Total Score: 1 12/29/19 24 10:27 AM EDT documented as of this encounter Care Teams Termite Technician Relationship Specialty Start Date End Date Vandana Stein MD [address] [place] [phone] PCP - General Internal Medicine 03/02/23 documented as of this encounter
--- OUTSIDE RECORDS SUMMARY | 2025-01-04 08:43 | XMS_ITS | Encounter Summary ---
Author Organization [employer] Address [address] [facility] 7t [place] [address] Care Team Providers Care Fur Mixer Operator Name Role Phone Vandana Stein MD Primary Care Pro vider Reason for Visit * Reason Comments Med Refill Encounter Details Date Type Department Care Team ([facility] st Contact Info) Description 10/08/2023 Refill [facility] WALK-IN [address] [phone] Ignacio Randolph MD [address] [place], [place] [phone] COVID-19 virus infection Social History Tobacco Use [...] Description 01/12/2025 11:30 AM EDT Office Visit [facility] MEDICINE [address] [place] [address] Vandana Stein MD [address] [place] [address] documented as of this encounter Visit Diagnoses Diagnosis COVID-19 virus infection documented in this encounter Additional Health Concerns Assessment Noted Time PHQ-9 Depression Total Score: 0 02/28/20 9:45 AM EDT documented as of this encounter Care Teams Fur Mixer Operator Relationship Specialty Start Date End Date Vandana Stein MD [address] [place] [address] PCP - General Internal Medicine 03/02/23 documented as of this encounter
--- OUTSIDE RECORDS SUMMARY | 2025-01-04 08:43 | XMS_ITS | Encounter Summary ---
Author Organization [employer] Address [address] [place] [address] 7 [place] [address] Care Team Providers Care Programmer Developer Name Role Phone Vandana Stein MD Primary Care Pro vider Reason for Visit * Reason Onset Date Comments call back requested 10/19/2023 Encounter Details Date Type Department Care Team ([facility] st Contact Info) Description 10/19/[address] [facility] MEDICINE [address] [place], [place] [phone] Vandana Stein MD [address] [place] [address] call back requested Social History Tobacco Use Types Packs/Day Years Used Date Smoking Tobacco: Former Cigarettes Q uit: 1979 Passive Smoke Exposure: Never Smokeless Tobacco: Never [...] encounter Miscellaneous Notes * Telephone Encounter - Arlene Ayala - 10/19/2023 10:56 AM EST TC from pt stating received a phone call day to schedule an appt but senior copywriter don't see any notes about appt. PCP Dr. De Dios documented in this encounter Plan of Treatment Upcoming Encounters Date Type Department Care Team (Late st Contact Info) Description 01/12/2025 11:30 AM EDT Office [address] [facility] MEDICINE [address] [place] [address] Vandana Stein MD [address] [place] [address] documented as of this encounter Visit Diagnoses Not on filedocumented in this encounter Additional Health Concerns Assessment Noted Time PHQ-9 Depression Total Score: 0 02/28/20 9:45 AM EDT documented as of this encounter Care Teams Programmer Developer Relationship Specialty Start Date End Date Vandana Stein MD [address] [place] [address] [phone] PCP - General Internal Medicine 03/02/23 documented as of this encounter
--- OUTSIDE RECORDS SUMMARY | 2025-01-04 08:44 | XMS_ITS | Encounter Summary ---
Author Organization [employer] Address [address] [place] [address] [place] [address] Care Team Providers Care Community Manager Name Role Phone Vandana Stein MD Primary Care Pro vider Reason for Visit * Reason Onset Date Comments Med Refill 12/18/2024 Encounter Details Date Type Department Care Team (Late st Contact Info) Description 12/18/2024 Refill [facility] MEDICINE 230 [place], [place] [phone] Vandana Stein MD [address] [place], [place] [phone] Social History Tobacco Use Types Packs/Day Years [...] Description 01/12/2025 11:30 AM EDT Office Visit [facility] MEDICINE [address] [place] [address] Vandana Stein MD [address] [place] [address] documented as of this encounter Visit Diagnoses Not on filedocumented in this encounter Additional Health Concerns Assessment Noted Time PHQ-9 Depression Total Score: 1 12/29/19 24 10:27 AM EDT documented as of this encounter Care Teams Community Manager Relationship Specialty Start Date End Date Vandana Stein MD [address] [place] [address] PCP - General Internal Medicine 03/02/23 documented as of this encounter
--- OUTSIDE RECORDS SUMMARY | 2025-01-04 08:44 | XMS_ITS | Encounter Summary ---
Author Organization [facility] Address [address] [place] [address] Care Team Providers Care Development Consultant Name Role Phone Vandana Stein Primary Care Provider [phone] Encounter Details Date Type Department Care Team (Late st Contact Info) Description 09/29/2017 Wizzgot Message [facility] 4th floor Cardiology Medicine [address] [place] [address] Animal Services Officer: Mike Hess MD [address] [place] [address] [place] [address] RE: Prescription Question Social History Tobacco Use Types Packs/Day Years Used Date Smoking Tobacco: Former Cigarettes 1 10 1 965 - 1975 Smokeless Tobacco: Never Alcohol Use Standard Drinks/Week Comments Not Asked 0 (1 standard drink = 0.6 oz pur e alcohol) Sex and Gender Information Value Date Recorded Sex Assigned at Male 10/01/2021 7:05 AM EST Legal Sex Male 3:31 PM EST Gender Identity Male 10/01/2021 7:05 AM EST Sexual Orientation Straight 10/01/2021 7: 05 AM EST documented as of this encounter Plan of Treatment Not on file documented as of this encounter Visit Diagnoses Not on filedocumented in this encounter Care Teams Development Consultant Relationship Specialty Start Date End Date Vandana Stein [address] [place] [address] PCP - General 02/17/24 documented as of this encounter
--- OUTSIDE RECORDS SUMMARY | 2025-01-04 08:44 | XMS_ITS | Encounter Summary ---
Author Organization [facility] Address [address] [place] [address] Care Team Providers Care Char Filter Operator Helper Name Role Phone Vandana Stein Primary Care Provider [phone]- [phone] Encounter Details Date Type Department Care Team (Late st Contact Info) Description 05/06/2023 Orders Only [facility] Interventional Radiology [address] [place] [address] Shantanu [place] DO [address] [place] [address] Social History Tobacco Use Types Packs/Day Years Used Date Smoking Tobacco: Former Cigarettes 1 10 1 965 - 1974 Smokeless Tobacco: Never Alcohol Use Standard Drinks/Week Comments No 0 [...] on filedocumented in this encounter Care Teams Char Filter Operator Helper Relationship Specialty Start Date End Date Vandana Stein [address] [place] [address] PCP - General 02/17/24 documented as of this encounter
--- OUTSIDE RECORDS SUMMARY | 2025-01-04 08:44 | XMS_ITS | Encounter Summary ---
Author Organization [facility] [employer] Address [address] [place] [address] Care Team Providers Care Automotive Finance Manager Name Role Phone Reanna Vallejo Primary Care Provider +- [phone] Vandana Stein MD Primary Care Pro vider Encounter Details Date Type Department Care Team (Latest Contact Info) Description 09/14/2018 Abstract [facility] CONVERSIONS Dental, Provider, DDS Social History Tobacco Use Types Packs/Day Years Used Date Smoking Tobacco: Never Assessed Sex and Gender Information Value Date Recorded Sex Assigned at Male 07/07/2022 10:27 AM EDT Legal Sex Male 10:27 AM EDT Gender Identity Male 07/07/2022 10:27 AM EDT Sexual Orientation Straight 12/29/2023 10 :45 AM EDT documented as of this encounter Plan of Treatment Upcoming Encounters Date Type Department Care Team (Late st Contact Info) Description 01/12/2025 11:30 AM EDT Office Visit [facility] MEDICINE [address] [place], [place] [phone] Vandana Stein MD [address] [place] [address] documented as of this encounter Visit Diagnoses Not on filedocumented in this encounter Care Teams Automotive Finance Manager Relationship Specialty Start Date End Date Reanna Vallejo FNP PCP - General Family Medicine 05/07/22 03/01/23 Vandana Stein MD [address] [place], [place] [phone] PCP - General Internal Medicine 03/02/23 documented as of this encounter
--- OUTSIDE RECORDS SUMMARY | 2025-01-04 08:44 | XMS_ITS | Clinical Summary ---
Author Organization [employer] Address [address] [place] [address] 7[address] [place] [address] Care Team Providers Care Internet Marketing Specialist Name Role Phone Vandana Stein MD Primary Care Pro vider Allergies Active Allergy Reactions Criticality Noted Date Comments Atorvastatin 09/24/2022 Blurry vision Statins 09/03/2017 Other reaction(s): Blurry vision Medications acetaminophen (Tylenol) 500 MG tabletIndication s:COVID-19 virus infection Take 2 tablets (1,000 mg) by mouth every 6 (six) hours if needed for moderate pain or fever for up to 25 doses. 50 tablet 09/24/19 23 Active Diclofenac Sodium 1 % gel 01/14/20 23 Active nitroglycerin (Nitrostat) 0.[address] 1 tablet (0.4 mg) under the tongue every 5 (five) minutes if needed for chest pain. 90 tablet 2 12/29/19 24 Active hydrocortisone (Anusol-HC) 2.5 % rectal cream Insert into the rectum 2 times daily. Apply by topical route 2 times every day to the affected area 30 g 5 01/25/20 24 Active calcipotriene (Dovonex) 0.005 % cream Apply topically 2 times daily. Apply to affected area twice daily for 5 days. 60 g 04/13/20 24 Active Efudex 5 % cream APPLY TOPICALLY TWICE DAILY FOR 5 DAYS 40 g 04/14/20 24 Active hydroCHLOROthiaz kirsten 12.5 MG tablet Take 1 tablet (12.5 mg) by mouth Once per day. 90 tablet 1 05/04/20 24 Active acebutolol (Sectral) 200 MG capsuleIndicatio ns:Essential hypertension TAKE 1 CAPSULE BY MOUTH TWICE DAILY 180 capsule 3 10/07/20 24 Active traZODone (Desyrel) 50 MG tablet Take 0.5 tablets (25 mg) by mouth at bedtime. 45 tablet 07/12/20 24 Active doxazosin (Cardura) 2 MG tabletIndication s:Benign prostatic hyperplasia with nocturia Take 1 tablet (2 mg) by mouth Once per day. 30 tablet 5 08/10/20 24 Active aspirin (Aspirin Adult Low Strength) 81 MG EC tabletIndication s:Coronary artery disease involving [place] coronary artery of [place] heart with angina pectoris (CMS/HCC) TAKE 1 TABLET BY MOUTH EVERY DAY 90 tablet 1 08/10/20 24 Active ezetimibe (Zetia) 10 MG tablet Take 1 tablet (10 mg) by mouth Once per day. 90 tablet 1 08/10/20 24 025 Active metFORMIN (Glucophage) 500 MG tablet Take 1 tablet (500 mg) by mouth with breakfast and with evening meal. 180 tablet 1 08/10/20 24 025 Active ketoconazole (Nizoral) 2 % shampoo Apply topically 2 (two) times a week. 120 mL 3 08/11/20 24 Active fenofibrate (Triglide) 160 MG tablet Take 1 tablet (160 mg) by mouth Once per day. 90 tablet 1 10/04/19 25 Active cholecalciferol (D3-1000) 25 MCG (1000 UT) capsuleIndicatio ns:Vitamin D deficiency TAKE 1 CAPSULE BY MOUTH EVERY MORNING 90 capsule 1 11/08/19 25 Active allopurinol (Zyloprim) 300 MG tabletIndication s:Chronic gout involving toe without tophus, unspecified cause, unspecified laterality TAKE 1 TABLET BY MOUTH EVERY DAY IN THE MORNING 90 tablet 11/09/19 25 Active amLODIPine (Norvasc) 10 MG tablet TAKE 1 TABLET BY MOUTH ONCE DAILY 90 tablet 1 12/14/19 25 Active telmisartan (MIcarDIS) 80 MG tablet TAKE 1 TABLET BY MOUTH EVERY DAY 30 tablet 2 12/29/19 25 Active amLODIPine (Norvasc) 10 MG tablet Take 1 tablet (10 mg) by mouth Once per day. 90 tablet 1 05/04/20 24 025 Discontinued telmisartan (MIcarDIS) 80 MG tablet TAKE 1 TABLET BY MOUTH EVERY DAY 30 tablet 2 09/29/19 25 025 Discontinued Active Problems Problem Noted Date Diagnosed Date CKD stage 3a, GFR 45-59 ml/min 07/12/2024 Insomnia 07/12/2024 Diabetes mellitus 02/02/2024 Normocytic anemia 02/02/2024 Bilateral hearing loss 02/02/2024 Health care maintenance 12/29/2023 Arterial insufficiency 12/29/2023 Anxiety 12/29/[address] of the abdomen 12/29/2023 Cholelithiasis 12/29/2023 Seborrheic dermatitis 12/29/2023 Claudication 02/27/2023 Overview (03/09/2023): Went to ED on 01/12/23 and was positive for left lower extremity DVT great saphenous vein. Hx of previous DVT in [place]. Started Eliquis, plan is to continue 5mg BID for at least 3 months Pt reports he is taking as prescribed. Bilateral Calf pain is still present. Care managed by [facility], next appt 03/31/23 RUEL was normal bilateral on 11/25/22. Exam not concerning for claudication but We discussed that there is low likelihood that this is due to claudication however in some patients with aortoiliac occlusive disease they may have normal ABIs at rest as well as palpable pedal pulses but these diminished with activity and ambulation. vascular recommended Treadmill study to check if exercise-induced claudication. Then if that study is positive, plans for CTA abdomen/pelvis to elucidate aortoiliac occlusive disease. Assessment & Plan (02/27/2023 10:34 AM EDT): Unable to order CTA abdomen/pelvis with approved guidelines Has upcoming appt 03/31/23 and will have treadmill study test then. Will leave CTA to be ordered by specialist Educated pt if pain worsens, starts to last longer in duration, or changes in anyway call the clinic and go to ED Pt agreed with plan Continue Eliquis 5 mg BID until cleared by vascular Continue compression stocking use. Followup 3 months or sooner PRN with new PCP Right bundle branch block (RBBB) 10/16/2021 Overview (02/27/2023): Patient has right bundle branch block with first-degree AV block on ECG in the office today. This is different from prior normal ECG post PCI in 2017. Discussed in the future there may be progression of his conduction disturbance that could result in PPM. -Stable for now. Care managed by [facility] Cardiology. 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/2018 Epididymal cyst 05/24/2018 Hydronephrosis, right 05/24/2018 Median neuropathy 02/18/2018 Benign prostatic hyperplasia with nocturia 09/03 Overview (10/20/2022): Last Assessment & Plan: -Continue home Doxazosin 1mg nightly Coronary artery disease invo lving dot [place] coronary artery of [place] heart without angina pectoris 09/03/2017 Overview (02/27/2023): Patient has CAD with high risk PCI [...] daily, telmisartan 80 mg p.o. daily, fenofibrate Will refill Nitroglycerin Educated to use PRN for chest pain and call 911 if he ever needs it Care managed by [facility] Cardiology, next appt 03/31/23 Gout 09/03/2017 Overview (10/20/2022): Last Assessment & Plan: -Continue home Allopurinol 300mg daily Unstable angina 09/03/2017 Peripheral venous insufficiency 04/29/2016 Essential hypertension 03/20/2015 Overview (10/20/2022): Last Assessment & Plan: Patient has hypertension and is treated with [...] p.o. daily -Continue telmisartan, acebutolol, and hydrochlorothiazide. Hypertriglyceridemia 03/20/2015 Overview (02/27/2023): Discussed treatment with fenofibrate, pt does not tolerate statins; caused vision loss. Educated pt that fenofibrate can cause gallstones and is recommended to discontinue in pt with gallstones or gallbladder disease. Pt has hx of biliary calculus, incidental finding on imaging prep for heart stents in 2017 Denies ever experiencing abdominal pain or problems from gallstones Through shared decision making pt wishes to continue fenofibrate at this time Educated pt to monitor for RUQ pain, or other abdominal pain, pain after eating, or changes in stool Assessment & Plan (02/27/2023 10:27 AM EDT): Will check lipid panel again 02/27/23, return fasting Pt reports he was on BID dosing fenofibrate in [place]. 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 Hx of previous DVT in [place]. Started Eliquis, plan is to continue 5mg BID for at least 3 months Pt reports he is taking as prescribed. Pain is still present. [facility] RUEL was normal on 11/27/22. Exam not concerning for claudication but We discussed that there is low likelihood that this is due to claudication however in some patients with aortoiliac occlusive disease they may have normal ABIs at rest as well as palpable pedal pulses but these diminished with activity and ambulation. vascular recommended Treadmill study to check if exercise-induced claudication. Then if that study is positive, plans for CTA abdomen/pelvis to elucidate aortoiliac occlusive disease. Assessment & Plan (02/27/2023 10:33 AM EDT): Unable to order CTA abdomen/pelvis with approved guidelines Has upcoming appt 03/31/23 and will have treadmill study test then. Will leave CTA to be ordered by specialist Educated pt if pain worsens, starts to last longer in duration, or changes in anyway call the clinic and go to ED Pt agreed with plan Continue Eliquis 5 mg BID until cleared by vascular Continue compression stocking use. Followup 3 months or sooner PRN with new PCP Assessment & Plan (01/23/2023 4:02 PM EDT): Patients US from 01/12/23 says Superficial Thrombophlebitis in the impressions. ED documentation from 01/12/[address]. [address] the patient reports having a few weeks left of his eliquis. I will refill the eliquis COVID-19 virus infection 10/03/2022 Encounters Date Type Department Care Team Description 12/27/2024 Refill [facility] [address] [facility], [place] [phone] Vinod Dahl MD 12/18/2024 Refill [facility] [address] [facility], [place] [phone] Vandana Stein MD 12/13/2024 Refill [facility] [address] [facility] [place] [address] Vandana Stein MD 11/14/2024 Refill [facility] [address] [facility] [place] [address] Vandana Stein MD 11/08/2024 Refill [facility] [address] [facility] [place] [address] Vandana Stein MD Chronic gout involving toe without tophus, unspecified cause, unspecified laterality 11/08/2024 Refill [facility] [address] [facility] [place] [address] Vandana Stein MD Chronic gout involving toe without tophus, unspecified cause, unspecified laterality 11/06/2024 Refill [facility] [address] [facility] [place] [address] Vandana Stein MD Vitamin D deficiency 10/25/2024 Telephone [facility] [address] [facility] [place] [address] Vandana Stein MD December recall from Last 3 Months Immunizations Name Administration Dates Next Due Influenza High-dose Quadriva lent Preservative Free 06/17/2023,06/27/2022,06/14/2021 Influenza injectable quadriv alent IIV4 with preservative 05/30/2019,06/29/2018 Influenza injectable quadriv alent preservative free 06/20/2020,06/25/2017,06/02/2016,2014 Influenza, High Dose Seasona l, Preservative Free 06/23/2024 Pfizer Covid-19 Vaccine 12+ 07/27/2024, Tdap 04/01/2016 Family History Medical History Relation Name Comments cardiac disease Father breast ca-40s Mother Relation Name Status Comments Father Mother Social History Tobacco Use Types Packs/Day Years Used Date Smoking Tobacco: Former Cigarettes Q uit: 1980 Passive Smoke Exposure: Never Smokeless Tobacco: Never Tobacco Cessation:Counseling Given: Not Answered Comments:Started smoking at his 20 y of [...] Orientation Straight 12/29/2023 10 :45 AM EDT Last Filed Vital Signs Vital Sign Reading Time Taken Comments Blood Pressure 120/50 07/12/2024 11:46 AM EST Pulse 70 07/12/2024 11:46 AM EST Temperature 36.2 ??C (97.1 ??F) 07/12/2024 11:[address] Respiratory Rate 20 07/12/2024 11:46 AM EST Oxygen Saturation 97% 07/12/2024 11:46 AM EST Inhaled Oxygen Concentration - - Weight 99.3 kg (219 lb) 07/12/2024 11:46 AM EST Height 172.7 cm (5' 8 ) 07/12/2024 11:46 AM EST Body Mass Index 33.3 07/12/2024 11:46 AM EST Plan of Treatment Upcoming Encounters Date Type Department Care Team (Late st Contact Info) Description 01/12/2025 11:30 AM EDT Office Visit [facility] [address] [place], [place] [phone] Vandana Stein MD [address] [place], [place] [phone] Health Maintenance Due Date Last Done Comments Diabetes: Foot Exam 1957 Alcohol/Substance Use Screening 1959 Pneumococcal Vaccine: 50+ Years (1 of 2 - PCV) 1966 Zoster Vaccines (1 of 2) 1997 RSV Patients and Patients Aged 60 years or older (1 - 1-dose 75+ series) 2022 SDOH Screening 01/24/2024 01/23/2023 Depression Screening 12/28/2024 12/29/2023, 12/29/19 24 Diabetes: Hemoglobin A1C 01/04/2025 024, 05/04/2024, 01/28/2024, Additional history exists Diabetes: Urine Protein Screening 07/07/2025 07/07/2024 Lipid Panel 07/07/2025 07/07/2024, 01/06, 03/23/2023, Additional history exists Tobacco Screening 07/12/2025 07/12/2024 Eye Exam 03/25/2026 03/25/2024, 03/07, 03/25/2024, Additional history exists DTaP/Tdap/Td Vaccines (2 - Td or Tdap) 04/01/2026 04/01/2016 Hepatitis C Screening Completed 01/28/2024 Influenza Vaccine Completed 06/23/2024, , 06/27/2022, Additional history exists Colorectal Cancer Screening Discontinued FIT Discontinued 07/21/2024 FOBT Discontinued 07/21/2024 COVID-19 Vaccine Completed 07/27/2024, , 07/11/2022, Additional history exists CT Colonography Discontinued Colonoscopy Discontinued FIT DNA/Cologuard Discontinued HIB Vaccines Aged Out No longer eligi ble based on patient's age to complete this topic HPV Vaccines Aged Out No longer eligi ble based on patient's age to complete this topic Hepatitis A Vaccines Aged Out No long er eligible based on patient's age to complete this topic Hepatitis B Vaccines Aged Out No long er eligible based on patient's age to complete this topic IPV Vaccines Aged Out No longer eligi ble based on patient's age to complete this topic Meningococcal Vaccine Aged Out No ann brenda eligible based on patient's age to complete this topic RSV under 20 months Aged Out No longe r eligible based on patient's age to complete this topic Rotavirus Vaccines Aged Out No longer eligible based on patient's age to complete this topic Sigmoidoscopy Discontinued Procedures Procedure Name Priority Date/Time Associated Diagnosis Comments FECAL GLOBIN BY IMMUNOCHEMISTRY Routine 07/21/2024 12:00 AM EST ALBUMIN, RANDOM URINE W/CREATININE Routine 07/07/2024 8:20 AM EDT Type 2 diabetes mellitus without complication, without long-term current use of insulin (CMS/HCC) HEMOGLOBIN A1C Routine 07/07/2024 8:18 AM EDT Type 2 diabetes mellitus without complication, without long-term current use of insulin (CMS/HCC) LIPID PANEL, STANDARD Routine 07/07/2024 8:18 AM EDT Type 2 diabetes mellitus without complication, without long-term current use of insulin (CMS/HCC) HEPATITIS C AB W/REFL TO HCV RNA, QN, PCR Routine 01/28/2024 8:03 AM EDT Annual physical exam from Last 3 Months or Most Recently Relevant to Health Maintenance Results * Fecal Globin by Immunochemistry (07/21/2024 12:00 AM EST) Fecal Globin By Immunochemistry SEE NOTE [facility] Comment: ??FECAL GLOBIN BY IMMUNOCHEMISTRY ?Micro Number: ?[id number] ??Test Status: ? Final ??Specimen Source: ?? Insure (tm) fobt test card ??Specimen Quality: ??Adequate ??Fecal Globin: ?Not Detected 07/21/2024 07/29/2024 5:5 8 AM EST Narrative [facility] - 07/29/2024 10:25 AM EST FASTING: UNKNOWN Vandana De Dios MD LAB BODY FLUIDS A ND STOOLS ORDERABLES Final Result Performing Organization Address City/[facility]/ZIP Co de Phone Number [facility] [address], [place] [address] [facility] [address] [place] [address] * Albumin, Random Urine W/Creatinine (07/07/2024 8:20 AM EDT) Creatinine, Urine 88.27 mg/dL [facility] Microalbumin Urine 12.0 mg/L [facility] Microalbum Creatinine Ratio Ur 13.5 <30 ug/mg cr [facility] Comment:Albumin/Creatinine R atio Reference Ranges: Normal: < 30 ug/mg creatinine Microalbuminuria: 30 - 300 ug/mg creatinineClinical Albuminuria: > 300 ug/mg creatinine Urine (Urine, Random) 07/07/2024 8:20 AM EDT 07/07/2024 10:56 AM EDT Vandana De Dios MD LAB URINE ORDERAB LES Final Result Performing Organization Address City/[facility]/ZIP Co de Phone Number [facility] [address] [place] [phone] * (ABNORMAL) Hemoglobin A1c (07/07/2024 8:18 AM EDT) Hemoglobin A1c 6.3(H) <6.0 % [facility] Comment:Hemoglobin A1C Refer ence Range Adults: 4.8 - 6.0 % Non diabetic: < 6.0 % Goal: < 7.0 %Additional Action Suggested: > 8.0 %Note: Hemoglobin A1c results are invalid for patients with abnormal amounts of HbF. Blood transfusions may impact the HbA1c concentration in the patient sample. Estimated Average Glucose 134 mg/dL [facility] Comment:eAG = Estimated ave rage glucose which is %A1C expressed asaverage glucose, using the formula of the I6Y-[id number] Glucose study (ADAG), Diabetes Care, Vol.31,#8,Apr. 2007 Blood Venous blood specimen / Unknown 07/07/2024 8:18 AM EDT 07/07/2024 10:54 AM EDT us Vandana De Dios MD LAB BLOOD ORDERAB LES Final Result [facility] [address] [place] [address] [phone] * Lipid Panel, Standard (07/07/2024 8:18 AM EDT) Triglycerides 115 <150 mg/dL [facility] Comment:Desirable Triglyceri de: less than 150 mg/dLBorderline High Triglyceride 150-199 mg/dLHigh Triglyceride: 200-499 mg/dLVery High Triglyceride: greater than or equal to 5OO mg/dL Cholesterol 168 <200 mg/dL [facility] Comment:Desirable Cholestero l: less than 200 mg/dLBorderline High Cholesterol: 200-239 mg/dLHigh Cholesterol: greater than 239 mg/dL LDL Cholesterol Calculated 96 <100 mg/dL [facility] Comment:Desirable LDL: less than 100 mg/dLNear Optimal/Above Optimal LDL: 110- 129 mg/dLBorderline High LDL: 130-159 mg/dLHigh LDL: 160-189 mg/dLVery High LDL: greater than or equal to 190 mg/dL HDL Cholesterol 49 >40 mg/dL [facility] Comment:Desirable HDL: great er than 40 mg/dL Note: This HDL assay may give artificially low results in patients with liver disease. Blood Venous blood specimen / Unknown 07/07/2024 8:18 AM EDT 07/07/2024 10:54 AM EDT us Vandana De Dios MD LAB BLOOD ORDERAB LES Final Result [facility] [address] [place] [phone] * Hepatitis C Antibody with Reflex to HCV, RNA, Quantitative, Real-Time PCR (01/28/2024 8:03 AM EDT) Hepatitis C Antibody Nonreactive Nonreactive [facility] Comment:Antibodies to HCV no t detected; does not exclude early acuteHCV infection. Blood Venous blood specimen / Unknown 01/28/2024 8:03 AM EDT 01/28/2024 11:29 AM EDT Vandana De Dios MD LAB BLOOD ORDERAB LES Final Result Performing Organization Address City/[facility] Co de Phone Number [facility] [address] [place] [phone] from Last 3 Months or Most Recently Relevant to Health Maintenance Insurance HSN FULL Care Teams Internet Marketing Specialist Relationship Specialty Start Date End Date Vandana Stein MD [address] [place] [phone] PCP - General Internal Medicine 03/02/23
--- OUTSIDE RECORDS SUMMARY | 2025-01-04 08:44 | XMS_ITS | Encounter Summary ---
Author Organization [employer] Address [address] [place] [address] [place] [address] Care Team Providers Care Webbing Inspector Name Role Phone Reanna Vallejo Primary Care Provider [phone] Vandana Stein MD Primary Care Pro vider Reason for Visit * Reason Comments Med Refill Encounter Details Date Type Department Care Team (Late Contact Info) Description 10/06/2022 Refill [facility] [address] [place] [phone] Reanna Vallejo FNP [address] [place] [address] Dept [place] [address] Unstable angina ([facility]/HCC) Social History Tobacco Use Types Packs/Day Years Used Date Smoking Tobacco: Former Cigarettes Smokeless Tobacco: Never Sex and Gender Information Value Date Recorded Sex Assigned at Male 07/07/2022 10:27 AM EDT Legal Sex Male 10:27 AM EDT Gender Identity Male 07/07/2022 10:27 AM EDT Sexual Orientation Straight 12/29/2023 10 :45 AM EDT COVID-19 Exposure Response Date Recorded In the last 10 days, have yo u been in contact with someone who was confirmed or suspected to have Coronavirus/COVID-19? Unable to assess 10/03/2022 8:35 AM EST documented as of this encounter Plan of Treatment Upcoming Encounters Date Type Department Care Team (Late Contact Info) Description 01/12/2025 11:30 AM EDT Office Visit [facility] [address] [place], [place] [phone] Vandana Stein MD [address] [place] [address] documented as of this encounter Visit Diagnoses Diagnosis Unstable angina (CMS/HCC) Intermediate coronary syndrome documented in this encounter Care Teams Webbing Inspector Relationship Specialty Start Date End Date Reanna Vallejo FNP PCP - General Family Medicine 05/07/22 03/01/23 Vandana Stein MD [address] [place] [phone] PCP - General Internal Medicine 03/02/23 documented as of this encounter
--- OUTSIDE RECORDS SUMMARY | 2025-01-04 08:44 | XMS_ITS | Encounter Summary ---
Author Organization [employer] Address [address] [place] [address] [place] [address] Care Team Providers Care Rn Documentation Specialist Name Role Phone Reanna Vallejo Primary Care Provider +- [phone] Vandana Stein MD Primary Care Pro vider Reason for Visit * Reason Comments Med Refill Encounter Details Date Type Department Care Team (Late st Contact Info) Description 08/12/2022 Refill [facility] [address] [place] [address] [phone] Zenon Lu MD [address] [place] [address] Social History Tobacco Use Types Packs/Day Years Used Date Smoking Tobacco: Never Assessed Sex and Gender Information Value Date Recorded Sex Assigned at Male 07/07/2022 10:27 AM EDT Legal Sex Male 10:27 AM EDT Gender Identity Male 07/07/2022 10:27 AM EDT Sexual Orientation Straight 12/29/2023 10 :45 AM EDT documented as of this encounter Miscellaneous Notes * Telephone Encounter - KRISTEN Gandhi - 08/21/2022 5:38 PM EST Filled 08/18/22 documented in this encounter Plan of Treatment Upcoming Encounters Date Type Department Care Team (Late st Contact Info) Description 01/12/2025 11:30 AM EDT Office Visit [facility] [address] [place] [address] [phone] Vandana Stein MD [address] [place] [address] documented as of this encounter Visit Diagnoses Not on filedocumented in this encounter Care Teams Rn Documentation Specialist Relationship Specialty Start Date End Date Reanna Vallejo FNP PCP - General Family Medicine 05/07/22 03/01/23 Vandana Stein MD [address] [place] [address] PCP - General Internal Medicine 03/02/23 documented as of this encounter
--- OUTSIDE RECORDS SUMMARY | 2025-01-04 08:44 | XMS_ITS | Encounter Summary ---
Author Organization [employer] Address [address] [place] [address] 7 [place] [address] Care Team Providers Care Metal Machine Setter Name Role Phone Vandana Stein MD Primary Care Pro vider Reason for Visit * Reason Comments Med Refill Encounter Details Date Type Department Care Team ([facility] st Contact Info) Description 04/11/2024 Refill [facility] MEDICINE [address] [place], [place] [phone] Vandana Stein MD [address] [place], [place] [phone] Social History Tobacco Use Types Packs/Day Years [...] Description 01/12/2025 11:30 AM EDT Office Visit [facility] MEDICINE [address] [place] [phone] Vandana Stein MD [address] [place] [address] [phone] documented as of this encounter Visit Diagnoses Not on filedocumented in this encounter Additional Health Concerns Assessment Noted Time PHQ-9 Depression Total Score: 1 12/29/19 24 10:27 AM EDT documented as of this encounter Care Teams Metal Machine Setter Relationship Specialty Start Date End Date Vandana Stein MD [address] [place] [phone] PCP - General Internal Medicine 03/02/23 documented as of this encounter
[2025-01-04 11:23] LABS: Hematocrit 37.3 % (42.0-52.0); Mean Corpuscular HGB Conc 32.2 g/dl (31.0-36.0); Mean Corpuscular Hemoglobin 29.1 pg (27.0-33.0); Mean Corpuscular Volume 90.3 fL (80.0-98.0); Mean Platelet Volume 11.7 fL (9.4-12.4); Platelet Count 261 X10*3/uL (160-400); Red Blood Count 4.13 X10*6/uL (4.60-5.80); Red Cell Distribution Width 13.7 % (11.0-16.0); White Blood Count 6.6 X10*3/uL (4.8-10.8)
[2025-01-04 11:44] LABS: Alanine Aminotransferase 15 U/L (0-40); Albumin Level 4.1 g/dL (3.5-5.0); Alkaline Phosphatase 26 U/L (39-117); Anion Gap 12 (12-20); Aspartate Amino Transferase 21 U/L (5-37); Bilirubin Total 0.4 mg/dL (0.0-1.0); Blood Urea Nitrogen 29 mg/dL (9-16); Calcium 9.9 mg/dL (8.4-10.2); Carbon Dioxide 26 mmol/L (22-29); Chloride 104 mmol/L (96-108); Estimated Glomerular Filt Rate 55; Glucose Random 105 mg/dL (60-115); Potassium 4.2 mmol/L (3.3-5.1); Sodium 138 mmol/L (135-145); Total Protein 7.1 g/dL (6.5-8.0)
== END 2025-01-04 08:29 | disposition home or self-care (01) ==
LOC: HO.HHCL 08:28
PROVIDERS: Visit Provider Student in an Organized Health Care Education/Training Program
DX: D50.9 Iron deficiency anemia, unspecified (principal)
CPT/HCPCS: 36415; 80053; 85027

== ENCOUNTER 2025-07-14 10:44 | Outpatient (REF) | payer OTHER, SELFPAY ==
--- OUTSIDE RECORDS SUMMARY | 2025-07-14 10:00 | XMS_ITS | Encounter Summary ---
Author Organization [employer] Address [address] [place] [address] 7t [place] [address] Care Team Providers Care Youth Ministry Director Name Role Phone Vandana Stein MD Primary Care Pro vider Reason for Referral * Consultation (Routine) - Canceled Specialty Diagnoses / Procedures Referred By Martina feliciano Referred To Contact Urology Diagnoses UTI symptoms Gross hematuria Cira Gomez NP [address] [place] [address] Phone: tel: fax: Referral ID Status Reason Start Date Expiration Date Visits Requested Visits Authorized [id number] Canceled Specialty Services Required 07/14/2025 07/14/2026 1 1 * Imaging (Urgent) - Authorized Specialty Diagnoses / Procedures Referred By Martina feliciano Referred To Contact Radiology Diagnoses Right upper quadrant abdominal pain Procedures US Abdomen Limited Cira Gomez NP [address] [place] [address] Phone: tel: fax: [address] Phone: tel: fax: Referral ID Status Reason Start Date Expiration Date V isits Requested Visits Authorized [id number] Authorized 07/14/2025 07/14/2026 1 1 Reason for Visit * Reason Comments UTI Encounter Details Date Type Department Care Team ([facility] st Contact Info) Description 07/14/2025 10:00 AM EST Office Visit [facility] [address] [place] [address] Cira Gomez, PARAM [address] [place], [place] [phone] Right upper quadrant abdominal pain (Primary Dx); [...] documented in this encounter Progress Notes * Cira Gomez NP - 07/14/2025 10:00 AM EST [...] Orders: POCT urinalysis dipstick manually resulted (CPT 34064) Culture, Urine, Routine Comprehensive Metabolic Panel; Future [...] hyperplasia with nocturia Coronary artery disease involving kaibab coronary artery of kaibab heart without angina pectoris Gout Epididymal cyst [...] 90 tablet, Rfl:0 documented in this encounter Plan of Treatment Upcoming Encounters Date Type Department Care Team (Late st Contact Info) Description 09/29/2025 2:30 PM EST Office Visit [facility] [address] [place] [address] Essence Lott, OD [address] [place] [address] Scheduled Orders Name Type Priority Associated Diagnoses Orde r Schedule Culture, Urine, Routine Microbiology Routine UTI symptoms Ordered: 07/14/2025 Comprehensive Metabolic Panel Lab Routine UTI symptoms Right upper quadrant abdominal pain Expected: 07/14/2025 (Approximate), Expires: 07/14/2026 CBC auto differential Lab Routine UTI symptoms Right upper quadrant abdominal pain Expected: 07/14/2025 (Approximate), Expires: 07/14/2026 US Abdomen Limited Imaging Urgent Right upper quadrant abdominal pain Expected: 07/14/2025, Expires: 07/14/2026 PSA, Total With Reflex to PSA, Free Lab Routine UTI symptoms Gross hematuria Expected: 07/14/2025 (Approximate), Expires: 07/14/2026 Sed Rate by Modified [place] Lab Routine UTI symptoms Expected: 07/14/2025, Expires: 07/14/2026 C-reactive Protein Lab Routine UTI symptoms Expected: 07/14/2025 (Approximate), Expires: 07/14/2026 Scheduled Referrals Name Type Priority Associated Diagnoses Orde r Schedule Referral to Urology Outpatient Referral Routine UTI symptoms Gross hematuria Expected: 07/14/2025 (Approximate), Expires: 07/14/2026 documented as of this encounter Procedures Procedure Name Priority Date/Time Associated Diagnosis Comments POCT URINALYSIS DIPSTICK Routine 07/14/2025 10:12 AM EST UTI symptoms documented in this encounter Results * POCT urinalysis dipstick manually resulted (CPT 41995) (07/14/2025 10:12 AM EST) Color, UA Yellow Clarity, UA Clear Glucose, UA Negative Bilirubin, UA Negative Ketones, UA Negative Spec Grav, UA 1.015 Blood, UA Negative Negative, None Detected pH, UA 5.5 Protein, UA Negative Urobilinogen, UA 0.2 Leukocytes, UA Negative Negative, Rare, Trace Nitrite, UA Negative Negative, None Detected Appearance, UA Ok Urine (Urine, Random) 07/14/2025 10:12 AM EST us Cira Gomez NP POINT OF CARE TEST ENTER/EDIT OR DERABLES Final Result documented in this encounter Visit Diagnoses Diagnosis Right upper quadrant abdominal pain- Primary UTI symptoms Gross hematuria documented in this encounter Additional Health Concerns Assessment Noted Time PHQ-9 Depression Total Score: 3 01/13/20 25 11:53 AM EDT documented as of this encounter Care Teams Youth Ministry Director Relationship Specialty Start Date End Date Vandana Stein MD [address] [place] [address] PCP - General Internal Medicine 03/02/23 documented as of this encounter
--- OUTSIDE RECORDS SUMMARY | 2025-07-14 12:43 | XMS_ITS | Encounter Summary ---
Author Organization [employer] Address [address] [facility] 7t [place] [address] Care Team Providers Care Data Center Consultant Name Role Phone Vandana Stein MD Primary Care Pro vider Reason for Visit * Reason Onset Date Comments Med Refill 03/25/2025 Encounter Details Date Type Department Care Team (Late st Contact Info) Description 03/25/2025 Refill [facility] 230 [place], [place] [phone] Sandrita Dorman MD 230 [place] [address] Social History Tobacco Use Types Packs/Day Years [...] Description 09/29/2025 2:30 PM EST Office Visit [facility] [address] [place], [place] [phone] Essence Lott, KINJAL [address] [place] [address] documented as of this encounter Visit Diagnoses Not on filedocumented in this encounter Additional Health Concerns Assessment Noted Time PHQ-9 Depression Total Score: 3 01/13/20 25 11:53 AM EDT documented as of this encounter Care Teams Data Center Consultant Relationship Specialty Start Date End Date Vandana Stein MD [address] [place], [place] [phone] PCP - General Internal Medicine 03/02/23 documented as of this encounter
--- OUTSIDE RECORDS SUMMARY | 2025-07-14 12:43 | XMS_ITS | Encounter Summary ---
Author Organization [employer] Address [address] [place] [address] 7 [place] [address] Care Team Providers Care Rn Medicare Name Role Phone Vandana Stein MD Primary Care Pro vider Encounter Details Date Type Department Care Team (Late Contact Info) Description 04/01/2023 [facility] [employer] Information Management 230 [place], [place] [phone] Vandana Stein MD 230 [place] [address] Social History Tobacco Use Types Packs/Day Years [...] Department Care Team (Late Contact Info) Description 09/29/2025 2:30 PM EST Office Visit [facility] 267 [place], [place] [phone] Oren, Essence, OD 230 [place], [place] [phone] documented as of this encounter Visit Diagnoses Not on filedocumented in this encounter Additional Health Concerns Assessment Noted Time PHQ-9 Depression Total Score: 0 02/28/20 9:45 AM EDT documented as of this encounter Care Teams Rn Medicare Relationship Specialty Start Date End Date Vandana Stein MD [address] [place] [address] PCP - General Internal Medicine 03/02/23 documented as of this encounter
--- OUTSIDE RECORDS SUMMARY | 2025-07-14 12:43 | XMS_ITS | Encounter Summary ---
Author Organization [employer] Address [address] [place] [address] 7 [place] [address] Care Team Providers Care Grape Crusher Name Role Phone Vandana Stein MD Primary Care Pro vider Reason for Visit * Reason Onset Date Comments Med Refill 11/08/2024 Encounter Details Date Type Department Care Team (Late st Contact Info) Description 11/08/2024 Refill [facility] 230 [place], [place] [phone] Vandana Stein MD [address] [place] [address] Chronic gout involving toe without tophus, unspecified [...] Description 09/29/2025 2:30 PM EST Office Visit [facility] [address] [place] [address] Essence Lott, KINJAL [address] [place], [place] [phone] documented as of this encounter Visit Diagnoses Diagnosis Chronic gout involving toe without tophus, unspecified cause, unspecified laterality documented in this encounter Additional Health Concerns Assessment Noted Time PHQ-9 Depression Total Score: 1 12/29/19 24 10:27 AM EDT documented as of this encounter Care Teams Grape Crusher Relationship Specialty Start Date End Date Vandana Stein MD 230 [place], [place] [phone] PCP - General Internal Medicine 03/02/23 documented as of this encounter
--- OUTSIDE RECORDS SUMMARY | 2025-07-14 12:43 | XMS_ITS | Encounter Summary ---
Author Organization [employer] Address [address] [facility] 7t [place] [address] Care Team Providers Care Warehouse Distribution Associate Name Role Phone Vandana Stein MD Primary Care Pro vider Reason for Visit * Reason Comments Med Refill Encounter Details Date Type Department Care Team (Late st Contact Info) Description 10/05/2023 Refill [facility] [address] [phone] Ignacio Randolph MD 230 [place], [place] [phone] COVID-19 virus infection Social History Tobacco Use [...] Description 09/29/2025 2:30 PM EST Office Visit [facility] [address] [place] [address] Oren, Essence, OD 230 [place] [address] documented as of this encounter Visit Diagnoses Diagnosis COVID-19 virus infection documented in this encounter Additional Health Concerns Assessment Noted Time PHQ-9 Depression Total Score: 0 02/28/20 9:45 AM EDT documented as of this encounter Care Teams Warehouse Distribution Associate Relationship Specialty Start Date End Date Vandana Stein MD 230 [place], [place] [phone] PCP - General Internal Medicine 03/02/23 documented as of this encounter
--- OUTSIDE RECORDS SUMMARY | 2025-07-14 12:43 | XMS_ITS | Encounter Summary ---
Author Organization [employer] Address [address] [place] [address] 7 [place] [address] Care Team Providers Care Dry Cleaning Attendant Name Role Phone Vandana Stein MD Primary Care Pro vider Reason for Visit * Reason Onset Date Comments Med Refill 12/18/2024 Encounter Details Date Type Department Care Team ([facility] st Contact Info) Description 12/18/2024 Refill [facility] 230 [place], [place] [phone] Vandana Stein MD [address] [place] [address] Social History Tobacco Use Types Packs/Day Years [...] Description 09/29/2025 2:30 PM EST Office Visit [facility] [address] [place], [place] [phone] Oren, Essence, OD 230 [place] [address] documented as of this encounter Visit Diagnoses Not on filedocumented in this encounter Additional Health Concerns Assessment Noted Time PHQ-9 Depression Total Score: 1 12/29/19 24 10:27 AM EDT documented as of this encounter Care Teams Dry Cleaning Attendant Relationship Specialty Start Date End Date Vandana Stein MD 230 [place], [place] [phone] PCP - General Internal Medicine 03/02/23 documented as of this encounter
--- OUTSIDE RECORDS SUMMARY | 2025-07-14 12:43 | XMS_ITS | Encounter Summary ---
Author Organization [employer] Address [address] [facility] 7t [place] [address] Care Team Providers Care Lead Recreation Assistant Name Role Phone Vandana Stein MD Primary Care Pro vider Reason for Visit * Reason Comments Med Refill Encounter Details Date Type Department Care Team (Late st Contact Info) Description 10/08/2023 Refill [facility] [address] [place] [phone] Ignacio Randolph MD 230 [place], [place] [phone] COVID-19 virus infection Social History Tobacco Use [...] Description 09/29/2025 2:30 PM EST Office Visit [facility] 267 [place], [place] [phone] Essence Lott, OD 230 [place] [address] documented as of this encounter Visit Diagnoses Diagnosis COVID-19 virus infection documented in this encounter Additional Health Concerns Assessment Noted Time PHQ-9 Depression Total Score: 0 02/28/20 9:45 AM EDT documented as of this encounter Care Teams Lead Recreation Assistant Relationship Specialty Start Date End Date Vandana Stein MD 230 [place] [address] PCP - General Internal Medicine 03/02/23 documented as of this encounter
--- OUTSIDE RECORDS SUMMARY | 2025-07-14 12:43 | XMS_ITS | Encounter Summary ---
Author Organization [employer] Address [address] [facility] 7t [place] [address] Care Team Providers Care Field Staff Manager Name Role Phone Vandana Stein MD Primary Care Pro vider Reason for Visit * Reason Comments Med Refill Encounter Details Date Type Department Care Team (Late st Contact Info) Description 05/12/2025 Refill [facility] 230 [place], [place] [phone] Natalie Pavon, ANP 230 [place], [place] [phone] Chronic gout involving toe without tophus, unspecified [...] Description 09/29/2025 2:30 PM EST Office Visit [facility] 267 [place], [place] [phone] Essence Lott, OD 230 [place] [address] documented as of this encounter Visit Diagnoses Diagnosis Chronic gout involving toe without tophus, unspecified cause, unspecified laterality documented in this encounter Additional Health Concerns Assessment Noted Time PHQ-9 Depression Total Score: 3 01/13/20 25 11:53 AM EDT documented as of this encounter Care Teams Field Staff Manager Relationship Specialty Start Date End Date Vandana Stein MD 230 [place], [place] [phone] PCP - General Internal Medicine 03/02/23 documented as of this encounter
--- OUTSIDE RECORDS SUMMARY | 2025-07-14 12:43 | XMS_ITS | Encounter Summary ---
Author Organization [employer] Address [address] [place] [address] 7 [place] [address] Care Team Providers Care Spot Checker Name Role Phone Vandana Stein MD Primary Care Pro vider Reason for Visit * Reason Onset Date Comments call back requested 10/19/2023 Encounter Details Date Type Department Care Team ([facility] st Contact Info) Description 10/19/2023 Telephone [facility] 230 [place], [place] [phone] aVndana Stein MD 230 [place], [place] [phone] call back requested Social History Tobacco Use [...] call day to schedule an appt but chart writer don't see any notes about appt. PCP Dr. De Dios documented in this encounter Plan of Treatment Upcoming Encounters Date Type Department Care Team (Late st Contact Info) Description 09/29/2025 2:30 PM EST Office Visit [facility] [address] [place] [address] Essence Lott, OD 230 [place] [address] documented as of this encounter Visit Diagnoses Not on filedocumented in this encounter Additional Health Concerns Assessment Noted Time PHQ-9 Depression Total Score: 0 02/28/20 9:45 AM EDT documented as of this encounter Care Teams Spot Checker Relationship Specialty Start Date End Date Vandana Stein MD [address] [place] [address] PCP - General Internal Medicine 03/02/23 documented as of this encounter
--- OUTSIDE RECORDS SUMMARY | 2025-07-14 12:43 | XMS_ITS | Clinical Summary ---
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 09/03/2017 Assessment & [...] 1 965 - 1975 Smokeless Tobacco: Never Tobacco Cessation:Counseling Given: Not [...] 68 11/25/2022 3:15 PM EDT Temperature 36.4 C (97.5 F) 09/05/2017 5:00 AM EST Respiratory Rate 16 11/25/2022 3:15 PM EDT [...] Screening 09/07/2024 Depression Screening and Follow-Up 09/07/2024 Fall Risk Screening 09/07/2024 Health Care Proxy Review 09/07/2024 Social Drivers of Health Annual Screening 09/07/2024 COVID-19 Vaccine ( season) 2025 07/27/2024, 06/22/2023, 07/11/2022, Additional history exists Influenza Vaccine (#1) 2025 , 06/17/2023, 06/27/2022, Additional history exists Basic Metabolic Panel 07/07/2025 07/07/2024 , 01/12/2023, 10/22/2022, Additional history exists DTaP,Tdap,and Td Vaccines (2 - Td or Tdap) 04/01/2026 04/01/2016 Hepatitis C Screening Completed 01/28/2024 Colon Cancer Screening Discontinued FOBT / Fit Test Discontinued 07/21/2024, 06/09, 10/22/2022 Cologuard Discontinued Colonoscopy Discontinued Hepatitis B Vaccines Aged Out No long er eligible based on patient's age to complete this topic Sigmoidoscopy Discontinued Medical Devices Implanted Type Area Power Crane Operator Device Identifier Shelf Expiration Date Model / Serial / Lot System Stent Coronary Monorail Drug Eluting Bioabsorbable Polymer [id number] Synergy - S0 - [id number] Implanted:Qty: 1 on 09/04/2017 by Chris Reyes MD at [facility] Stent Left: Coronary [employer] [id number] 04/30/2018 [id number] 30 / 0 / [id number] System Stent Coronary Monorail Drug Eluting Bioabsorbable Polymer [id number] Synergy - S0 - [id number] Implanted:Qty: 1 on 09/04/2017 by Chris Reyes MD at [facility] Stent Left: Coronary [employer] [id number] 07/08/2018 [id number] 25 / 0 / [id number] System Stent Coronary Monorail Drug Eluting Bioabsorbable Polymer [id number] Synergy - S0 - [id number] Implanted:Qty: 1 on 09/04/2017 by Chris Reyes MD at [facility] Stent Right: Coronary [employer] [id number] 05/11/2018 [id number] / 0 / [id number] Procedures * Due to [place] [employer] law, this organization might not be sharing negative HIV tests. Procedure Name Priority Date/Time Associated Diagnosis Comments BASIC METABOLIC PANEL STAT 09/05/2017 9:32 AM EST from Last 3 Months or Most Recently Relevant to Health Maintenance Results * Due to [place] [employer] law, this organization might not be sharing negative HIV tests. * (ABNORMAL) Basic Metabolic Panel (09/05/2017 9:32 AM EST) NA 136 135 - 145 mmol/L 09/05/2017 10:40 AM EST [facility] [employer] K 4.0 3.5 - 5.3 mmol/L 09/05/2017 10:40 AM EST [facility] [employer] Cl 100 97 - 110 mmol/L 09/05/2017 10:40 AM EST [facility] [employer] CO2 27 24 - 32 mmol/L 09/05/2017 10:40 AM EST [facility] [employer] BUN 26(H) 7 - 23 mg/dL 09/05/2017 10:40 AM EST [facility] [employer] Creatinine 1.27 0.60 - 1.30 mg/dL 09/05/2017 10:40 AM EST [facility] [employer] Glucose 123(H) 70 - 99 mg/dL 09/05/2017 10:40 AM EST [facility] [employer] Calcium 9.5 8.7 - 10.7 mg/dL 09/05/2017 10:40 AM EST [facility] [employer] [facility] Anion Gap 9 5 - 15 09/05/2017 10:40 AM EST [facility] [employer] eGFR Non- 57(L) >=90 mL/min/BSA 09/05/2017 10:40 AM EST [facility] [employer] Comment: Units = mL/min/1.73 m2 Glomerular Filtration Rate (GFR) is estimated based on the CKD-EPI Creatinine Equation (2009). For Americans multiply results by 1.159. Stage Description GFR 1 Normal >=90 mL/min/BSA 2 Mildly decreased GFR 60-89 mL/min/BSA 3 Moderately decreased GFR 30-59 mL/min/BSA 4 Severely decreased GFR 15-29 mL/min/BSA 5 Kidney Failure <15 mL/min/BSA Blood specimen (specimen) Structure of peripheral vein / Unknown 09/05/2017 9:32 AM EST 09/05/2017 9:58 AM EST Angela Acevedo CLOCK AND WATCH HANDS DIPPER LAB BLOOD ORDERABLES Final R esult [facility] [employer] [address] [place] [address], from Last 3 Months or Most Recently [...] 9:36 AM 09/03/2017 11:20 AM Care Teams Regional Education Manager Relationship Specialty Start Date End Date Vandana Stein [address] [place] [address] PCP - General 02/17/24
--- OUTSIDE RECORDS SUMMARY | 2025-07-14 12:43 | XMS_ITS | Encounter Summary ---
Author Organization [employer] Address [address] [facility] 7t [place] [address] Care Team Providers Care Water Resource Engineer Name Role Phone Vandana Stein MD Primary Care Pro vider Encounter Details Date Type Department Care Team (Latest Contact Info) Description 07/14/2025 Travel Social History Tobacco Use Types Packs/Day Years [...] Description 09/29/2025 2:30 PM EST Office Visit [facility] [address] [place] [address] Essence Lott, OD 230 [place] [address] documented as of this encounter Visit Diagnoses Not on filedocumented in this encounter Additional Health Concerns Assessment Noted Time PHQ-9 Depression Total Score: 3 01/13/20 25 11:53 AM EDT documented as of this encounter Care Teams Water Resource Engineer Relationship Specialty Start Date End Date Vandana Stein MD [address] [place] [address] PCP - General Internal Medicine 03/02/23 documented as of this encounter
--- OUTSIDE RECORDS SUMMARY | 2025-07-14 12:43 | XMS_ITS | Encounter Summary ---
Author Organization [facility] Address [address] [place] [address] Care Team Providers Care Finisher Card Tender Name Role Phone Vandana Stein Primary Care Provider [phone] Reason for Referral * Surgical (Routine) - Authorized Specialty Diagnoses / Procedures Referred By Martina feliciano Referred To Contact Vascular Surgery Diagnoses Claudication of both lower extremities [facility] Physician Referral Services [address] [place] [address] [facility] Vascular Surgery [address] [place] [address] Phone: tel: fax: Referral ID Status Reason Start Date Expiration Date Visits Requested Visits Authorized [id number] Authorized Specialty Services Required 01/31/2025 03/03/2026 6 6 Encounter Details Date Type Department Care Team (Latest Contact Info) Description 01/31/2025 Transcribe Orders [facility] Referral Services [address] [place] [address] Vandana Stein [address] [place] [address] Claudication of both lower extremities (Primary Dx) Social History Tobacco Use Types Packs/Day Years [...] as of this encounter Plan of Treatment Scheduled Referrals Name Type Priority Associated Diagnoses Orde r Schedule Ambulatory referral to Vascular Surgery Outpatient Referral Routine Claudication of both lower extremities Expected: 01/31/2025, Expires: 03/03/2026 documented as of this encounter Visit Diagnoses Diagnosis Claudication of both lower extremities- Primary documented in this encounter Care Teams Finisher Card Tender Relationship Specialty Start Date End Date Vandana Stein [address] [place] [address] PCP - General 02/17/24 documented as of this encounter
--- OUTSIDE RECORDS SUMMARY | 2025-07-14 12:43 | XMS_ITS | Encounter Summary ---
Author Organization [facility] Address [address] [place] [address] Care Team Providers Care Offset Second Press Operator Name Role Phone Vandana Stein Primary Care Provider [phone] Encounter Details Date Type Department Care Team (Late st Contact Info) Description 09/29/2017 Reach Prost Message [facility] 4th floor Cardiology Medicine [address] [place] [phone] Pe Teacher: Mkie Hess MD [address] [place] [address] Cardi[place] [address] RE: Prescription Question Social History Tobacco Use [...] on filedocumented in this encounter Care Teams Offset Second Press Operator Relationship Specialty Start Date End Date Vandana Stein [address] [place] [address] PCP - General 02/17/24 documented as of this encounter
--- OUTSIDE RECORDS SUMMARY | 2025-07-14 12:43 | XMS_ITS | Encounter Summary ---
Author Organization [employer] Address [address] [facility] 7t [place] [address] Care Team Providers Care Junior Project Coordinator Name Role Phone Vandana Stein MD Primary Care Pro vider Reason for Visit * Reason Onset Date Comments Med Refill 03/25/2025 Encounter Details Date Type Department Care Team ([facility] st Contact Info) Description 03/25/2025 Refill [facility] MEDICINE [address] [place], [place] [phone] Vinod Dahl MD 230 [place] [address] Social History Tobacco Use Types Packs/Day Years [...] Description 09/29/2025 2:30 PM EST Office Visit [facility] OPTOMETRY [address] [place] [address] Essence Lott, KINJAL 230 [place] [address] documented as of this encounter Visit Diagnoses Not on filedocumented in this encounter Additional Health Concerns Assessment Noted Time PHQ-9 Depression Total Score: 3 01/13/20 25 11:53 AM EDT documented as of this encounter Care Teams Junior Project Coordinator Relationship Specialty Start Date End Date Vandana Stein MD 230 [place], [place] [phone] PCP - General Internal Medicine 03/02/23 documented as of this encounter
--- OUTSIDE RECORDS SUMMARY | 2025-07-14 12:43 | XMS_ITS | Encounter Summary ---
Author Organization [employer] Address [address] [place] [address] 7t [place] [address] Care Team Providers Care Technology Applications Engineer Name Role Phone Vandana Stein MD Primary Care Pro vider Reason for Visit * Reason Comments Med Refill Encounter Details Date Type Department Care Team ([facility] st Contact Info) Description 06/18/2025 Refill [facility] MEDICINE 230 [place], [place] [phone] Vandana Stein MD 230 [place] [address] Social History Tobacco Use Types Packs/Day Years [...] Description 09/29/2025 2:30 PM EST Office Visit [facility] [address] [place] [address] Essence Lott, KINJAL 230 [place] [address] documented as of this encounter Visit Diagnoses Not on filedocumented in this encounter Additional Health Concerns Assessment Noted Time PHQ-9 Depression Total Score: 3 01/13/20 25 11:53 AM EDT documented as of this encounter Care Teams Technology Applications Engineer Relationship Specialty Start Date End Date Vandana Stein MD 230 [place], [place] [phone] PCP - General Internal Medicine 03/02/23 documented as of this encounter
--- OUTSIDE RECORDS SUMMARY | 2025-07-14 12:43 | XMS_ITS | Encounter Summary ---
Author Organization [email or web address] Address [address] [place] [address] 7 [place] [address] Care Team Providers Care Machine Records Units Supervisor Name Role Phone Vandana Stein MD Primary Care Pro vider Reason for Visit * Reason Onset Date Comments Med Refill 11/14/2024 Encounter Details Date Type Department Care Team ([facility] st Contact Info) Description 11/14/2024 Refill [facility] MEDICINE 230 [place], [place] [phone] Vandana Stein MD 230 [place] [address] Social History Tobacco Use Types Packs/Day Years [...] 2:30 PM EST Office Visit [facility] OPTOMETRY [address] [place], [place] [phone] Oren, Essence, OD 230 [place] [address] documented as of this encounter Visit Diagnoses Not on filedocumented in this encounter Additional Health Concerns Assessment Noted Time PHQ-9 Depression Total Score: 1 12/29/19 24 10:27 AM EDT documented as of this encounter Care Teams Machine Records Units Supervisor Relationship Specialty Start Date End Date Vandana Stein MD 230 [place], [place] [phone] PCP - General Internal Medicine 03/02/23 documented as of this encounter
--- OUTSIDE RECORDS SUMMARY | 2025-07-14 12:43 | XMS_ITS | Encounter Summary ---
Author Organization [employer] Address [address] [place] [address] 7 [place] [address] Care Team Providers Care Purchasing/Receiving Name Role Phone Vandana Stein MD Primary Care Pro vider Reason for Visit * Reason Onset Date Comments PA 11/12/2023 Prior Authorization 11/12/2023 Encounter Details Date Type Department Care Team ([facility] st Contact Info) Description 11/12/2023 Telephone [facility] MEDICINE 230 [place], [place] [phone] Vandana Stein MD 230 [place], [place] [phone] PA; Prior Authorization Social History Tobacco Use [...] Description 09/29/2025 2:30 PM EST Office Visit [facility] OPTOMETRY [address] [place] [address] Essence Lott, OD 230 [place] [address] documented as of this encounter Visit Diagnoses Not on filedocumented in this encounter Additional Health Concerns Assessment Noted Time PHQ-9 Depression Total Score: 0 02/28/20 9:45 AM EDT documented as of this encounter Care Teams Purchasing/Receiving Relationship Specialty Start Date End Date Vandana Stein MD 230 [place] [address] PCP - General Internal Medicine 03/02/23 documented as of this encounter
--- OUTSIDE RECORDS SUMMARY | 2025-07-14 12:43 | XMS_ITS | Encounter Summary ---
Author Organization [employer] Address [address] [place] [address] 7 [place] [address] Care Team Providers Care Web Mobile Designer Name Role Phone Reanna Vallejo Primary Care Provider Vandana Michael MD Primary Care Pro vider Reason for Visit * Reason Comments Med Refill Encounter Details Date Type Department Care Team (Late st Contact Info) Description 08/12/2022 Refill [facility] MEDICINE 230 [place] [address] Zenon Lu MD [address] [place] [address] [phone] Social History Tobacco Use Types Packs/Day Years [...] 09/29/2025 2:30 PM EST Office Visit [facility] OPTOMETRY [address] [place] [address] Essence Lott, OD 230 [place] [address] documented as of this encounter Visit Diagnoses Not on filedocumented in this encounter Care Teams Web Mobile Designer Relationship Specialty Start Date End Date Reanna Vallejo FNP PCP - General Family Medicine 05/07/22 03/01/23 Vandana Stein MD 230 [place] [address] PCP - General Internal Medicine 03/02/23 documented as of this encounter
--- OUTSIDE RECORDS SUMMARY | 2025-07-14 12:43 | XMS_ITS | Encounter Summary ---
Author Organization [employer] Address [address] [place] [address] 7t [place] [address] Care Team Providers Care Marketing Team Lead Name Role Phone Reanna Vallejo GUNSMITH APPRENTICE Primary Care Provider Vandana Michael MD Primary Care Pro vider Reason for Visit * Reason Comments Med Refill Encounter Details Date Type Department Care Team (Late st Contact Info) Description 10/06/2022 Refill [facility] MEDICINE 230 [place] [address] Reanna Vallejo FNP Unstable angina (CMS/HCC) Social History Tobacco Use Types Packs/Day Years [...] Description 09/29/2025 2:30 PM EST Office Visit [facility] OPTOMETRY [address] [place], [place] [phone] Essence Lott, OD 230 [place] [address] documented as of this encounter Visit Diagnoses Diagnosis Unstable angina (CMS/HCC) (HCC) Intermediate coronary syndrome documented in this encounter Care Teams Marketing Team Lead Relationship Specialty Start Date End Date Reanna Vallejo FNP PCP - General Family Medicine 05/07/22 03/01/23 Vandana Stein MD [address] [place] [phone] PCP - General Internal Medicine 03/02/23 documented as of this encounter
--- OUTSIDE RECORDS SUMMARY | 2025-07-14 12:43 | XMS_ITS | Encounter Summary ---
Author Organization [employer] Address [address] [place] [address] [address] [address] Care Team Providers Care Laundry Sorter Name Role Phone Reanna Vallejo Primary Care Provider Cici Vandana Washburn MD Primary Care Pro vider Encounter Details Date Type Department Care Team (Latest Contact Info) Description 09/14/2018 Abstract [facility] Dental, Provider, DDS Social History Tobacco [...] Description 09/29/2025 2:30 PM EST Office Visit [facility] OPTOMETRY [address] [place] [address] Essence Lott, OD 230 [place] [address] documented as of this encounter Visit Diagnoses Not on filedocumented in this encounter Care Teams Laundry Sorter Relationship Specialty Start Date End Date Reanna Vallejo FNP PCP - General Family Medicine 05/07/22 03/01/23 Vandana Stein MD 230 [place] [address] PCP - General Internal Medicine 03/02/23 documented as of this encounter
--- OUTSIDE RECORDS SUMMARY | 2025-07-14 12:43 | XMS_ITS | Clinical Summary ---
Author Organization [employer] Address [address] [facility] 7t [place] [address] Care Team Providers Care Leak Operator Paraffin Plant Name Role Phone Vandana Stein MD Primary Care Pro vider Allergies Active Allergy Reactions Criticality Noted Date Comments Atorvastatin 09/24/2022 Blurry vision Statins 09/03/2017 Other reaction(s): Blurry vision Medications acetaminophen (Tylenol) 500 MG tabletIndicatio ns:COVID-19 virus infection Take 2 tablets (1,000 mg) [...] pain. 90 tablet 2 12/29/19 24 Active calcipotriene (Dovonex) 0.005 % cream Apply topically 2 times daily. Apply to affected area twice daily for 5 days. 60 g 04/13/20 24 Active Efudex 5 % cream APPLY TOPICALLY TWICE DAILY FOR 5 DAYS 40 g 04/14/20 24 Active ketoconazole (Nizoral) 2 % shampoo Apply topically 2 (two) times a week. 120 mL 3 08/11/20 24 Active gabapentin (Neurontin) 100 MG capsuleIndicati ons:Neuropathy 1 capsule at bedtime 30 capsule 1 01/13/20 25 Active traZODone (Desyrel) 50 MG tablet Take 1 tablet (50 mg) by mouth at bedtime. 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 Apply by topical route 2 times every day to the affected area 30 g 2 04/05/20 25 Active metFORMIN (Glucophage) 500 MG tablet TAKE 1 TABLET BY MOUTH TWICE DAILY WITH BREAKFAST AND WITH DINNER 180 tablet 1 04/10/20 25 Active D3-1000 25 MCG (1000 UT) capsuleIndicati ons:Vitamin D deficiency TAKE 1 CAPSULE BY MOUTH EVERY MORNING 90 capsule 1 05/09/20 25 Active allopurinol (Zyloprim) 300 MG tabletIndicatio ns:Chronic gout involving toe without tophus, unspecified cause, unspecified laterality Take 1 tablet (300 mg) by mouth Once per day. TAKE 1 TABLET BY MOUTH DAILY IN THE MORNING 90 tablet 05/12/20 25 026 Active hydroCHLOROthia zide 12.5 MG tablet TAKE 1 TABLET BY MOUTH ONCE DAILY 90 tablet 1 06/12/20 25 Active acebutolol (Sectral) 200 MG capsuleIndicati ons:Essential hypertension TAKE 1 CAPSULE BY MOUTH TWICE DAILY 180 capsule 1 06/12/20 25 Active amLODIPine (Norvasc) 10 MG tablet TAKE 1 TABLET BY MOUTH ONCE DAILY 90 tablet 1 06/16/20 25 Active telmisartan (MIcarDIS) 80 MG tablet TAKE 1 TABLET BY MOUTH EVERY DAY 30 tablet 2 06/27/20 25 Active sulfamethoxazol e-trimethoprim (Bactrim DS) 800-160 MG tablet Take 1 tablet by mouth 2 times daily for 7 days. 14 tablet 07/14/20 25 025 Active amLODIPine (Norvasc) 10 MG tablet TAKE 1 TABLET BY MOUTH ONCE DAILY 90 tablet 1 12/14/19 25 025 Discontinued(Re order (will not trigger notification to Pharmacy)) telmisartan (MIcarDIS) 80 MG tablet TAKE 1 TABLET BY MOUTH EVERY DAY 30 tablet 2 03/27/20 25 025 Discontinued Active Problems Problem Noted Date Diagnosed Date Paresthesias 01/13/2025 CKD stage 3a, GFR 45-59 ml/min ([facility]) 024 Insomnia 07/12/2024 Diabetes mellitus 02/02/2024 Normocytic anemia [...] pain is still present. Care managed by [facility] Vascular, next appt 03/31/23 RUEL was normal bilateral [...] PPM. -Stable for now. Care managed by [facility] Cardiology. 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 Care managed by [facility], next appt 03/31/23 RUEL was normal on 11/27/22. [...] Encounters Date Type Department Care Team Description 07/14/2025 10:00 AM EST Office Visit [facility] [address] [place] [address] Cira Gomez NP Right upper quadrant abdominal pain (Primary Dx); UTI symptoms; Gross hematuria 07/14/2025 Travel 07/06/2025 Travel 06/26/[address] [facility] MEDICINE [address] [place] [address] Vandana Stein MD 06/18/[address] [facility] MED[facility] [address] [place] [address] Vandana Stein MD 06/15/[address] [facility] MED[facility] [address] [place] [address] Vandana Stein MD 06/11/[address] [facility] [address] [place] [address] Vandana Stein MD Essential hypertension 06/11/[address] [facility] [address] [place] [address] Natalie Pavon ANP Essential hypertension 05/12/[address] [facility] [address] [place] [address] Natalie Pavon ANP Chronic gout involving toe without tophus, unspecified cause, unspecified laterality 05/12/[address] [facility] [address] [place] [address] Jimmy Tiwari MD Chronic gout involving toe without tophus, unspecified cause, unspecified laterality 05/08/[address] [facility] MED[facility] [address] [place], [place] [phone] Zayra Navarrete MD Vitamin D deficiency from Last 3 Months Immunizations Immunization Administration Dates Next Due Influenza High-dose Quadriva lent Preservative Free 06/17/2023,06/27/2022,06/14/2021 Influenza injectable quadriv alent IIV4 with preservative 05/30/2019,06/29/2018 Influenza injectable quadriv alent preservative free 06/20/2020,06/25/2017,06/02/2016,2014 Influenza, High Dose Seasona l, Preservative Free 06/06/2025,06/23/2024 Pfizer Covid-19 Vaccine 12+ 07/27/2024, Tdap 04/01/2016 [...] (209 lb) 07/14/2025 10:03 AM EST Height 172.7 cm (5' 8 ) 01/12/2025 11:47 AM EDT Body Mass Index 31.78 01/12/2025 11:47 AM EDT Plan of Treatment Upcoming Encounters Date Type Department Care Team (Late st Contact Info) Description 09/29/2025 2:30 PM EST Office Visit [facility] OPTOMETRY [address] [place] [address] Oren, Essence, OD [address] [place] [address] Health Maintenance Due Date Last Done Comments Diabetes: Urine Protein Screening 07/07/2025 07/07/2024 Lipid Panel 07/07/2025 07/07/2024, 052 11/2023, 03/23/2023, Additional history exists Diabetes: Foot Exam 07/08/2025 Diabetes: Hemoglobin A1C 07/15/2025 025, 07/07/2024, 05/04/2024, Additional history exists Alcohol/Substance Use Screening 01/12/2026 01/12/2025 Depression Screening 01/12/2026 01/12/2025, 01/13/20 25 SDOH Screening 01/12/2026 01/12/2025 Pneumococcal Vaccine: 50+ Years (1 of 2 - PCV) 01/13/2026 Postponed from 1966 (Patient Refused) RSV Patients and Patients Aged 60 years or older (1 - 1-dose 75+ series) 01/13/2026 Postponed from 2022 (Patient Refused) Zoster Vaccines (1 of 2) 01/13/2026 Pos tponed from 1997 (Patient Refused) Eye Exam 03/25/2026 03/25/2024, 03/07, 03/25/2024, Additional history exists DTaP/Tdap/Td Vaccines (2 - Td or Tdap) 04/01/2026 04/01/2016 Tobacco Screening 07/14/2026 07/14/2025 Hepatitis C Screening Completed 01/28/2024 Colorectal Cancer Screening Discontinued FIT Discontinued 07/21/2024 FOBT Discontinued 07/21/2024 Influenza Vaccine Completed 06/06/2025, , 06/17/2023, Additional history exists COVID-19 Vaccine Completed 07/07/2025, , 06/22/2023, Additional history exists CT Colonography Discontinued Colonoscopy [...] patient's age to complete this topic Meningococcal B Vaccine Aged Out No l onger eligible based on patient's age to complete [...] Routine 07/14/2025 10:12 AM EST UTI symptoms POCT GLYCATED HEMOGLOBIN, TOTAL Routine 01/12/2025 12:02 PM EDT Type 2 diabetes mellitus with other specified complication, without long-term current use of insulin ([facility]) FECAL GLOBIN BY IMMUNOCHEMISTRY Routine 07/21/2024 12:00 [...] Recently Relevant to Health Maintenance Results * POCT urinalysis dipstick manually resulted (CPT 00739) (07/14/2025 10:12 AM EST) Color, UA Yellow [...] CARE TEST ENTER/EDIT OR DERABLES Final Result * (ABNORMAL) POCT HGB A1C (01/12/2025 12:02 PM EDT) Hemoglobin A1C 6.2(A) 4.0 - 6.0 % QC Media Lot # [id number] Lot# Expiration Date Blood 01/12/2025 12:0 2 PM EDT us Vandana De Dios MD POINT OF CARE STEPHANIE T ENTER/EDIT ORDERABLES Final Result * Fecal Globin by Immunochemistry (07/21/2024 12:00 AM EST) Fecal Globin By Immunochemistry SEE NOTE [facility] Comment: FECAL GLOBIN BY IMMUNOCHEMISTRY Micro Number: [id number] Test Status: Final Specimen Source: Insure (tm) fobt test card Specimen Quality: Adequate Fecal Globin: Not Detected 07/21/2024 07/29/2024 5:5 8 AM EST Narrative [facility] - 07/29/2024 10:25 AM EST FASTING: UNKNOWN Vandana De Dios MD LAB BODY FLUIDS A ND STOOLS ORDERABLES Final Result Performing Organization Address City/[facility]/ZIP Co de Phone Number [address], [place] [address] [facility] [address] [place] [phone] * Albumin, Random Urine W/Creatinine (07/07/2024 8:20 AM EDT) Creatinine, Urine 88.27 mg/dL [facility] Microalbumin Urine 12.0 mg/L [facility] Microalbum Creatinine Ratio Ur 13.5 <30 ug/mg cr [facility] Comment:Albumin/Creatinine R atio Reference Ranges: Normal: < 30 ug/mg creatinine Microalbuminuria: 30 - 300 ug/mg creatinineClinical Albuminuria: > 300 ug/mg creatinine Urine (Urine, Random) 07/07/2024 8:20 AM EDT 07/07/2024 10:56 AM EDT us Vandana De Dios MD LAB URINE ORDERAB LES Final Result [facility] [address] [place] [phone] * Lipid Panel, Standard (07/07/2024 8:18 AM EDT) Triglycerides 115 <150 mg/dL [facility] Comment:Desirable Triglyceri de: less than 150 mg/dLBorderline High Triglyceride 150-199 mg/dLHigh Triglyceride: 200-499 mg/dLVery High Triglyceride: greater than or equal to 5OO mg/dL Cholesterol 168 <200 mg/dL [facility] Comment:Desirable Cholestero l: less than 200 mg/dLBorderline High Cholesterol: 200-239 mg/dLHigh Cholesterol: greater than 239 mg/dL LDL Cholesterol Calculated 96 <100 mg/dL [facility] Comment:Desirable LDL: less than 100 mg/dLNear Optimal/Above Optimal LDL: 110- 129 mg/dLBorderline High LDL: 130-159 mg/dLHigh LDL: 160-189 mg/dLVery High LDL: greater than or equal to 190 mg/dL HDL Cholesterol 49 >40 mg/dL [facility] Comment:Desirable HDL: great er than 40 mg/dL Note: This HDL assay may give artificially low results in patients with liver disease. Blood Venous blood specimen / Unknown 07/07/2024 8:18 AM EDT 07/07/2024 10:54 AM EDT us Vandana De Dios MD LAB BLOOD ORDERAB LES Final Result Performing Organization Address [facility] Co de Phone Number [facility] [address] [place] [phone] * Hepatitis C Antibody with Reflex to HCV, RNA, Quantitative, Real-Time PCR (01/28/2024 8:03 AM EDT) Hepatitis C Antibody Nonreactive Nonreactive [facility] Comment:Antibodies to HCV no t detected; does not exclude early acuteHCV infection. Blood Venous blood specimen / Unknown 01/28/2024 8:03 AM EDT 01/28/2024 11:29 AM EDT us Vandana De Dios MD LAB BLOOD ORDERAB LES Final Result Performing Organization Address City/[facility]/ZIP Co de Phone Number [facility] [address] [place] [phone] from Last 3 Months or Most Recently Relevant to Health Maintenance Insurance [facility] Care Teams Leak Operator Paraffin Plant Relationship Specialty Start Date End Date Vandana Stein MD [address] [place] [phone] PCP - General Internal Medicine 03/02/23
--- OUTSIDE RECORDS SUMMARY | 2025-07-14 12:43 | XMS_ITS | Encounter Summary ---
Author Organization [facility] Address [address] [place] [address] Care Team Providers Care Pencils Washer Name Role Phone Vandana Stein Primary Care Provider [phone] Encounter Details Date Type Department Care Team (Late st Contact Info) Description 05/06/2023 Orders Only [facility] Interventional Radiology [address] [place] [address] Shantanu Rutledge DO [address] [place] [address] Social History Tobacco Use Types Packs/Day Years [...] on filedocumented in this encounter Care Teams Pencils Washer Relationship Specialty Start Date End Date Vandana Stein [address] [place] [phone] PCP - General 02/17/24 documented as of this encounter
--- OUTSIDE RECORDS SUMMARY | 2025-07-14 12:43 | XMS_ITS | Encounter Summary ---
Author Organization [employer] Address [address] [place] [address] 7t [place] [address] Care Team Providers Care Bread Wrapping Machine Feeder Name Role Phone Vandana Stein MD Primary Care Pro vider Reason for Visit * Reason Comments Med Refill Encounter Details Date Type Department Care Team ([facility] st Contact Info) Description 04/11/2024 Refill [facility] MED[facility] [address] [place], [place] [phone] Vandana Stein MD [address] [place], [place] [phone] Social History Tobacco Use Types Packs/Day Years [...] PM EST Office Visit [facility] OPTOMETRY [address] [place] [address] Oren, Essence, OD [address] [place] [address] documented as of this encounter Visit Diagnoses Not on filedocumented in this encounter Additional Health Concerns Assessment Noted Time PHQ-9 Depression Total Score: 1 12/29/19 24 10:27 AM EDT documented as of this encounter Care Teams Bread Wrapping Machine Feeder Relationship Specialty Start Date End Date Vandana Stein MD [address] [place] [address] PCP - General Internal Medicine 03/02/23 documented as of this encounter
[2025-07-14 13:08] LABS: MANUAL DIFF FLAG NO
[2025-07-14 13:25] LABS: Hematocrit 37.9 % (42.0-52.0); Hemoglobin 12.1 g/dl (14.0-18.0); Imm Gran Abs Auto 0.03 X10*3/uL (0.00-0.03); Imm Gran Pct Auto 0.5 % (0.0-0.4); Lymphocytes Absolute Auto 1.3 X10*3/uL (1.2-4.9); Mean Corpuscular HGB Conc 31.9 g/dl (31.0-36.0); Mean Corpuscular Hemoglobin 28.5 pg (27.0-33.0); Mean Corpuscular Volume 89.4 fL (80.0-98.0); NRBC Abs Auto 0.000 X10*3/uL (0.0-0.012); NRBC Pct Auto 0.0 /100WBC (0.0-0.2); Platelet Count 276 X10*3/uL (160-400); Red Blood Count 4.24 X10*6/uL (4.60-5.80); White Blood Count 6.2 X10*3/uL (4.8-10.8)
[2025-07-14 14:07] LABS: PSA,Total (Free>4and<10) 2.65 ng/mL (0.00-4.00)
[2025-07-14 14:08] LABS: Alanine Aminotransferase 187 U/L (0-40); Albumin Level 4.6 g/dL (3.5-5.0); Alkaline Phosphatase 49 U/L (39-117); Anion Gap 13 (12-20); Aspartate Amino Transferase 163 U/L (5-37); Blood Urea Nitrogen 36 mg/dL (9-16); Calcium 9.9 mg/dL (8.4-10.2); Carbon Dioxide 29 mmol/L (22-29); Chloride 102 mmol/L (96-108); Estimated Glomerular Filt Rate 42; Potassium 4.2 mmol/L (3.3-5.1); Sodium 140 mmol/L (135-145); Total Protein 7.8 g/dL (6.5-8.0)
== END 2025-07-14 10:45 | disposition home or self-care (01) ==
LOC: HO.HHCL 10:44
PROVIDERS: PCP Student in an Organized Health Care Education/Training Program; Visit Provider Nurse Practitioner Family
DX: Z12.5 Encounter for screening for malignant neoplasm of prostate (principal); R39.9 Unspecified symptoms and signs involving the genitourinary system; R10.11 Right upper quadrant pain; R31.0 Gross hematuria
CPT/HCPCS: 36415; 80053; 84153; 85025; 85652; 86140; 87086

== ENCOUNTER 2025-07-17 09:30 | Outpatient (REF) | payer SELFPAY ==
--- OUTSIDE RECORDS SUMMARY | 2025-07-14 10:00 | XMS_ITS | Encounter Summary ---
Author Organization [employer] Address [address] [place] [address] 7t [place] [address] Care Team Providers Care Plush Cutter Name Role Phone Vandana Stein MD Primary Care Pro vider Reason for Referral * Imaging (STAT) - Authorized Specialty Diagnoses / Procedures Referred By Martina feliciano Referred To Contact Radiology Diagnoses Right upper quadrant abdominal pain Procedures US Abdomen Complete David Gomez NP [address] [place] [address] Phone: tel: fax: [address] Phone: tel: fax: Referral ID Status Reason Start Date Expiration Date V isits Requested Visits Authorized [id number] Authorized 07/14/2025 07/14/2026 1 1 * Consultation (Routine) - Canceled Specialty Diagnoses / Procedures [facility] Referred To Contact Urology Diagnoses UTI symptoms Gross hematuria David Gomez NP [address] [place] [address] Phone: tel: fax: Referral ID Status Reason Start Date Expiration Date Visits Requested Visits Authorized [id number] Canceled Specialty Services Required 07/14/2025 07/14/2026 1 1 * Imaging (Urgent) - Canceled Specialty Diagnoses / Procedures [facility] Referred To Contact Radiology Diagnoses Right upper quadrant abdominal pain Procedures US Abdomen Limited David Gomez NP [address] [place] [address] Phone: tel: fax: [address] Phone: tel: fax: Referral ID Status Reason Start Date Expiration Date V isits Requested Visits Authorized [id number] Canceled 07/14/2025 07/14/2026 1 1 Reason for Visit * Reason Comments UTI Encounter Details Date Type Department Care Team (Late st Contact Info) Description 07/14/2025 10:00 AM EST Office Visit [facility] [address] [place] [address] David Gomez NP [address] [place] [address] Right upper quadrant abdominal pain (Primary Dx); UTI symptoms; Gross hematuria Social History Tobacco Use Types Packs/Day Years [...] Answer Date Recorded Patient Health Questionnaire-9 Score 3 01/12/2025 Patient Health Questionnaire-9 Score 3 01/12/2025 Last PHQ-9: Questionnaire Data Not on file 0 01/12/2025 Housing Stability Answer Date Recorded What is [...] Answer Date Recorded Patient Health Questionnaire-2 Score 1 01/12/2025 Internet Access Answer Date Recorded Internet Access Q1 Yes 01/12/2025 Internet Access Q2 Not on file 01/12/2025 Sex and Gender Information Value Date Recorded Sex Assigned at Male 07/07/2022 10:27 AM EDT Legal Sex Male 10:27 AM EDT Gender Identity Male 07/07/2022 10:27 AM EDT Sexual Orientation Straight 12/29/2023 10 :45 AM EDT documented as of this encounter Last Filed Vital Signs Vital Sign Reading Time Taken Comments Blood Pressure 126/63 07/14/2025 10:03 AM EST Pulse 67 07/14/2025 10:03 AM EST Temperature 36.7 C (98.1 F) 07/14/2025 10:03 AM EST Respiratory Rate 16 07/14/2025 10:03 AM EST Oxygen Saturation 97% 07/14/2025 10:03 AM EST Inhaled Oxygen Concentration - - Weight 94.8 kg (209 lb) 07/14/2025 10:03 AM EST Height - - Body Mass Index 31.78 01/12/2025 11:47 AM EDT documented in this encounter Progress Notes * David Gomez NP - 07/14/2025 10:00 AM EST Rambo Lr is a 79 y.o. male who presents to the office for Chief Complaint Patient presents with UTI Problem List[1] Medical History[2] Allergies[3] Pt with dark red urine, pelvic discomfort, Bout of RUQ pain, taking alpha christ for history of bph, remote history of smoking, No fever chills Endorses stool has changed color to white No new meds Mild dysuria last night Review of Systems Constitutional: Negative for activity change, fatigue and fever. Respiratory: Negative for apnea. Cardiovascular: Negative for chest pain. Gastrointestinal: Positive for abdominal pain and constipation. Negative for abdominal distention and blood in stool. Genitourinary: Positive for difficulty urinating, dysuria and hematuria. Negative for flank pain, frequency, penile discharge and urgency. Skin: Negative for color change. Psychiatric/Behavioral: Negative for agitation. BP 126/63 (BP Location: Right arm, Patient Position: Sitting, BP Cuff Size: Adult) Pulse 67 Temp 98.1 ??F (36.7 ??C) (Temporal) Resp 16 Wt 209 lb (94.8 kg) SpO2 97% BMI 31.78 kg/m?? Physical Exam Vitals reviewed. Constitutional: Appearance: Normal appearance. He is obese. HENT: Head: Normocephalic. Nose: Nose normal. Cardiovascular: Rate and Rhythm: Normal rate and regular rhythm. Pulses: Normal pulses. Heart sounds: Normal heart sounds. Pulmonary: Effort: No respiratory distress. Breath sounds: Normal breath sounds. Abdominal: Palpations: Abdomen is soft. Musculoskeletal: Cervical back: Neck supple. Neurological: Mental Status: He is alert and oriented to person, place, and time. Psychiatric: Mood and Affect: Mood normal. Results: Office Visit on 07/14/2025 Component Date Value Ref Range Status Color, UA 07/14/2025 Yellow Final Clarity, UA 07/14/2025 Clear Final Glucose, UA 07/14/2025 Negative Final Bilirubin, UA 07/14/2025 Negative Final Ketones, UA 07/14/2025 Negative Final Spec Grav, UA 07/14/2025 1.015 Final Blood, UA 07/14/2025 Negative Negative, None Detected Final pH, UA 07/14/2025 5.5 Final Protein, UA 07/14/2025 Negative Final Urobilinogen, UA 07/14/2025 0.2 Final Leukocytes, UA 07/14/2025 Negative Negative, Rare, Trace Final Nitrite, UA 07/14/2025 Negative Negative, None Detected Final Appearance, UA 07/14/2025 Ok Final Assessment & Plan UTI symptoms Orders: POCT urinalysis dipstick manually resulted (CPT 37824) Culture, Urine, Routine Comprehensive Metabolic Panel; Future CBC auto differential; Future Referral to Urology; Future PSA, Total With Reflex to PSA, Free; Future Sed Rate by Modified Westergren; Future C-reactive Protein; Future pt with dsyura, history of antoine bj blood no blood clot, remote history of smoking Urology referred due to possibility of hematuria, prescription sent for bactrim in case symptoms worsen though encouraged pt to not start unless culture is positive, PSA ordered Right upper quadrant abdominal pain RUQ pain and change in stool (described as white) encouraged low fat diet ultrasound ordered Orders: Comprehensive Metabolic Panel; Future CBC auto differential; Future US Abdomen Limited; Future Gross hematuria Referral to urology Orders: Referral to Urology; Future PSA, Total With Reflex to PSA, Free; Future Current Medications[4] [1] Patient Active Problem List Diagnosis Essential hypertension Benign prostatic hyperplasia with nocturia Coronary artery 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 Gout Epididymal cyst Hydronephrosis, right Hypertriglyceridemia Obesity Parapelvic renal cyst Peripheral venous insufficiency Right bundle branch block (RBBB) Median neuropathy Unstable angina (CMS/HCC) (HCC) Claudication (CMS/HCC) Health care maintenance Arterial insufficiency Anxiety Abnormal CT of the abdomen Cholelithiasis Seborrheic dermatitis Diabetes mellitus (HCC) Normocytic anemia Bilateral hearing loss CKD stage 3a, GFR 45-59 ml/min (CMS/HCC) (HCC) Insomnia Paresthesias [2] Past Medical History: Diagnosis Date Anemia Coronary artery disease Diabetes mellitus (HCC) Epiretinal membrane (ERM) of right eye Hypertension Hypertriglyceridemia [3] Allergies Allergen Reactions Atorvastatin Blurry vision Statins Other reaction(s): Blurry vision [4] Current Outpatient Medications: acebutolol (Sectral) 200 MG capsule, TAKE 1 CAPSULE BY MOUTH TWICE DAILY, Disp: 180 capsule, Rfl: 1 acetaminophen (Tylenol) 500 MG tablet, Take 2 tablets (1,000 mg) by mouth every 6 (six) hours if needed for moderate pain or fever for up to 25 doses., Disp: 50 tablet, Rfl: 0 allopurinol (Zyloprim) 300 MG tablet, Take 1 tablet (300 mg) by mouth Once per day. TAKE 1 TABLET BY MOUTH DAILY IN THE MORNING, Disp: 90 tablet, Rfl: 0 amLODIPine (Norvasc) 10 MG tablet, TAKE 1 TABLET BY MOUTH ONCE DAILY, Disp: 90 tablet, Rfl: 1 Aspirin Low Dose 81 MG EC tablet, TAKE 1 TABLET BY MOUTH EVERY DAY, Disp: 90 tablet, Rfl: 1 calcipotriene (Dovonex) 0.005 % cream, Apply topically 2 times daily. Apply to affected area twice daily for 5 days., Disp: 60 g, Rfl: 0 D3-1000 25 MCG (1000 UT) capsule, TAKE 1 CAPSULE BY MOUTH EVERY MORNING, Disp: 90 capsule, Rfl: 1 Diclofenac Sodium 1 % gel, , Disp: , Rfl: doxazosin (Cardura) 2 MG tablet, TAKE 1 TABLET BY MOUTH EVERY DAY, Disp: 30 tablet, Rfl: 5 Efudex 5 % cream, APPLY TOPICALLY TWICE DAILY FOR 5 DAYS, Disp: 40 g, Rfl: 0 ezetimibe (Zetia) 10 MG tablet, TAKE 1 TABLET BY MOUTH EVERY DAY, Disp: 90 tablet, Rfl: 1 fenofibrate (Triglide) 160 MG tablet, TAKE 1 TABLET BY MOUTH EVERY DAY, Disp: 90 tablet, Rfl: 1 fluticasone (Flonase) 50 MCG/ACT nasal spray, USE 1 SPRAY IN EACH NOSTRIL TWICE DAILY DIRECTED, Disp: 16 g, Rfl: 0 gabapentin (Neurontin) 100 MG capsule, 1 capsule at bedtime, Disp: 30 capsule, Rfl: 1 hydroCHLOROthiazide 12.5 MG tablet, TAKE 1 TABLET BY MOUTH ONCE DAILY, Disp: 90 tablet, Rfl: 1 hydrocortisone (Anusol-HC) 2.5 % rectal cream, Insert into the rectum 2 times daily. Apply by topical route 2 times every day to the affected area, Disp: 30 g, Rfl: 2 ketoconazole (Nizoral) 2 % shampoo, Apply topically 2 (two) times a week., Disp: 120 mL, Rfl: 3 metFORMIN (Glucophage) 500 MG tablet, TAKE 1 TABLET BY MOUTH TWICE DAILY WITH BREAKFAST AND WITH DINNER, Disp: 180 tablet, Rfl: 1 nitroglycerin (Nitrostat) 0.4 MG SL tablet, Place 1 tablet (0.4 mg) under the tongue every 5 (five)minutes if needed for chest pain., Disp: 90 tablet, Rfl: 2 sulfamethoxazole-trimethoprim (Bactrim DS) 800-160 MG tablet, Take 1 tablet by mouth 2 times daily for 7 days., Disp: 14 tablet, Rfl: 0 telmisartan (MIcarDIS) 80 MG tablet, TAKE 1 TABLET BY MOUTH EVERY DAY, Disp: 30 tablet, Rfl: 2 traZODone (Desyrel) 50 MG tablet, Take 1 tablet (50 mg) by mouth at bedtime., Disp: 90 tablet, Rfl:0 documented in this encounter Miscellaneous Notes * Addendum Note - David Gomez NP - 07/14/2025 10:00 AM ESTAddended by: DAVID GOMEZ on: 07/14/2025 02:24 PM Modules accepted: Orders documented in this encounter Plan of Treatment Upcoming Encounters Date Type Department Care Team (Late st Contact Info) Description 09/29/2025 2:30 PM EST Office Visit [facility] [address], [place] [phone] Oren, Essence, OD [address] [place] [address] Scheduled Orders Name Type Priority Associated Diagnoses Orde r Schedule US Abdomen Limited Imaging Urgent Right upper quadrant abdominal pain Expected: 07/14/2025, Expires: 07/14/2026 Lipase Lab Routine Right upper quadrant abdominal pain Expected: 07/14/2025, Expires: 07/14/2026 US Abdomen Complete Imaging STAT Right upper quadrant abdominal pain Expected: 07/14/2025, Expires: 07/14/2026 Scheduled Referrals Name Type Priority Associated Diagnoses Orde r Schedule Referral to Urology Outpatient Referral Routine UTI symptoms Gross hematuria Expected: 07/14/2025 (Approximate), Expires: 07/14/2026 documented as of this encounter Procedures Procedure Name Priority Date/Time Associated Diagnosis Comments PSA, TOTAL WITH REFLEX TO PSA, FREE Routine 07/14/2025 10:50 AM EST UTI symptoms Gross hematuria CBC WITH AUTO DIFFERENTIAL Routine 07/14/2025 10:50 AM EST UTI symptoms Right upper quadrant abdominal pain SED RATE BY MODIFIED WESTERGREN Routine 07/14/2025 10:50 AM EST UTI symptoms C-REACTIVE PROTEIN Routine 07/14/2025 10 :50 AM EST UTI symptoms COMPREHENSIVE METABOLIC PANEL Routine 07/14/2025 10:50 AM EST UTI symptoms Right upper quadrant abdominal pain CULTURE, URINE, ROUTINE Routine 07/14/2025 10:49 AM EST UTI symptoms POCT URINALYSIS DIPSTICK Routine 07/14/2025 10:12 AM EST UTI symptoms documented in this encounter Results * (ABNORMAL) C-reactive Protein (07/14/2025 10:50 AM EST) C Reactive Protein 0.85(H) < or = 0.50 mg/dL [facility] Blood Venous blood specimen / Unknown 07/14/2025 10:50 AM EST 07/14/2025 1:00 PM EST us David Gomez NP LAB BLOOD ORDERABLES Final Resul t Performing Organization Address City/[facility] Co de Phone Number [facility] [address] [place] [address] [phone] * (ABNORMAL) Sed Rate by Modified Chrisergren (07/14/2025 10:50 AM EST) Pathologist [facility] Erythrocyte Sedimentation Rate 38(H) 0 - 15 MM/HR [facility] Comment:Patients with polycy themia and many hemoglobin abnormalitiesmay have depressed sed rates whereas patients with anemiamay have elevated sed rates. Blood Venous blood specimen / Unknown 07/14/2025 10:50 AM EST 07/14/2025 1:00 PM EST us David Gomez NP LAB BLOOD ORDERABLES Final Resul t Performing Organization Address City/[facility] Co de Phone Number [facility] [address] [place] [phone] * PSA, Total With Reflex to PSA, Free (07/14/2025 10:50 AM EST) PSA,Total (Free>4and<10) 2.65 0.00 - 4.00 ng/mL [facility] Comment:A Free PSA was not p erformed: The percentage of Free PSA can be used to enhance the differentiation of prostate cancer from benign prostatic disease in subjects whose PSA levels are between 4.0 and 10.0 ng/mL. For subjects whose PSA levels are below 4.0 or above 10.0 ng/mL, the risk of prostate cancer is determined on the basis of the PSA alone. Therefore the % Free PSA is recommended only for those subjects whose PSA levels are between 4.0 and 10.0 ng/mL.PSA methodology: Johnson Alinity i ChemiluminescentMicroparticle Immunoassay (CMIA) 07/14/2025 10:5 0 AM EST 07/14/2025 1:00 PM EST us David Gomez NP LAB BLOOD ORDERABLES Final Resul t [facility] [address] [place] [phone] * (ABNORMAL) CBC auto differential (07/14/2025 10:50 AM EST) Pathologist [facility] White Blood Count 6.2 4.8 - 10.8 X10*3/uL [facility] Red Blood Count 4.24(L) 4.60 - 5.80 X10*6/uL [facility] Hemoglobin 12.1(L) 14.0 - 18.0 g/dl [facility] Hematocrit 37.9(L) 42.0 - 52.0 % [facility] Mean Corpuscular Volume 89.4 80.0 - 98.0 fL [facility] Mean Corpuscular Hemoglobin 28.5 27.0 - 33.0 pg [facility] Mean Corpuscular HGB Conc 31.9 31.0 - 36.0 g/dl [facility] Red Cell Distribution Width 14.3 11.0 - 16.0 % [facility] Platelet Count 276 160 - 400 X10*3/uL [facility] Mean Platelet Volume 11.8 9.4 - 12.4 fL [facility] Neutrophils Percent Auto 69.4 45 - 73 % [facility] Imm Gran Pct Auto 0.5(H) 0.0 - 0.4 % [facility] Lymphocytes Percent Auto 20.6 20 - 40 % [facility] Monocytes Percent Auto 7.4 2 - 11 % [facility] Eosinophils Percent Auto 1.8 0 - 4 % [facility] Basophils Percent Auto 0.3 0 - 2 % [facility] NRBC Pct Auto 0.0 0.0 - 0.2 /100WBC [facility] Neutrophils Absolute Auto 4.3 2.0 - 8.3 x10*3/uL [facility] Imm Gran Abs Auto 0.03 0.00 - 0.03 X10*3/uL [facility] Lymphocytes Absolute Auto 1.3 1.2 - 4.9 X10*3/uL [facility] Monocytes Absolute Auto 0.5 0.1 - 1.2 X10*3/uL [facility] Eosinophils Absolute Auto 0.1 0.0 - 0.4 X10*3/uL [facility] Basophils Absolute Auto 0.0 0.0 - 0.2 X10*3/uL [facility] NRBC Abs Auto 0.000 0.0 - 0.012 X10*3/uL [facility] Blood Venous blood specimen / Unknown 07/14/2025 10:50 AM EST 07/14/2025 1:00 PM EST us David Gomez NP LAB BLOOD ORDERABLES Final Resul t [facility] [address] [place] [phone] * (ABNORMAL) Comprehensive Metabolic Panel (07/14/2025 10:50 AM EST) Sodium 140 135 - 145 mmol/L [facility] Potassium 4.2 3.3 - 5.1 mmol/L [facility] Chloride 102 96 - 108 mmol/L [facility] Carbon Dioxide 29 22 - 29 mmol/L [facility] Anion Gap 13 12 - 20 [facility] Urea Nitrogen (BUN) 36(H) 9 - 16 mg/dL [facility] Creatinine, Serum 1.60(H) 0.5 - 1.4 mg/dL [facility] Estimated Glomerular Filt Rate 42 [facility] Comment:Chronic Kidney Disea se: Estimated GFR < 60 mL/min/[id number] Kidney Disease: Estimated GFR < 15 mL/min/1.73m2 Glucose 118(H) 60 - 115 mg/dL [facility] Calcium 9.9 8.4 - 10.2 mg/dL [facility] Bilirubin, Total 1.3(H) 0.0 - 1.0 mg/dL [facility] Aspartate Amino Transferase 163(H) 5 - 37 U/L [facility] Alanine Aminotransferase 187(H) 0 - 40 U/L [facility] Total Protein 7.8 6.5 - 8.0 g/dL [facility] Albumin Level 4.6 3.5 - 5.0 g/dL [facility] Alkaline Phosphatase 49 39 - 117 U/L [facility] Blood Venous blood specimen / Unknown 07/14/2025 10:50 AM EST 07/14/2025 1:00 PM EST us David Gomez NP LAB BLOOD ORDERABLES Final Resul t [facility] [address] [place] [phone] * Culture, Urine, Routine (07/14/2025 10:49 AM EST) Urine Urine specimen obtained by clean catch procedure / Unknown 07/14/2025 10:49 AM EST 07/14/2025 1:07 PM EST Comment:UACC Narrative [facility] - 07/15/2025 1:30 PM EST Urine Culture No growth. Specimen Source: Urine clean catch us David Graef VAN LOADER LAB MICROBIOLOGY - GENERAL ORDER DEREK Final Result [facility] [address] [place] [address] [phone] * POCT urinalysis dipstick manually resulted (CPT 47914) (07/14/2025 10:12 AM EST) Color, UA Yellow Clarity, UA Clear Glucose, UA Negative Bilirubin, UA Negative Ketones, UA Negative Spec Grav, UA 1.015 Blood, UA Negative Negative, None Detected pH, UA 5.5 Protein, UA Negative Urobilinogen, UA 0.2 Leukocytes, UA Negative Negative, Rare, Trace Nitrite, UA Negative Negative, None Detected Appearance, UA Ok Urine (Urine, Random) 07/14/2025 10:12 AM EST us David Gomez VAN LOADER POINT OF CARE TEST ENTER/EDIT OR DERABLES Final Result documented in this encounter Visit Diagnoses Diagnosis Right upper quadrant abdominal pain- Primary UTI symptoms Gross hematuria documented in this encounter Additional Health Concerns Assessment Noted Time PHQ-9 Depression Total Score: 3 01/13/20 25 11:53 AM EDT documented as of this encounter Care Teams Plush Cutter Relationship Specialty Start Date End Date Vandana Stein MD [address] [place] [phone] PCP - General Internal Medicine 03/02/23 documented as of this encounter
--- NOTE | ~2025-07-17 | US_ITS ---
EXAMINATION: US ABDOMEN LIMITED CLINICAL INFORMATION: Right upper quadrant abdominal pain. COMPARISON: November 16, 2018 TECHNIQUE: Real-time ultrasound of the right upper quadrant abdomen using grayscale technique. FINDINGS: PANCREAS: No peripancreatic fluid collections. LIVER: Liver measures 18 cm. Coarse echotexture. No gross nodular surface. No solid or cystic lesion. No intrahepatic biliary ductal dilatation. GALLBLADDER: Back with hyperechoic abnormality is and posterior shadowing. Gallbladder wall measures 27 mm. No pericholecystic fluid. COMMON BILE DUCT: 4 mm. RIGHT KIDNEY: 16 cm. Normal echotexture. Renal cortical thinning. No gross hydronephrosis. There are multifocal, different sizes anechoic lesions seen in the exophytic and parapelvic location, largest measures 6.6 cm. No gross solid lesion.. FREE FLUID: None. 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 Hepatomegaly and steatosis. Multifocal simple cysts, right kidney. Electronically signed by: Memo Araujo MD 07/17/2025 10:53 AM EST
--- OUTSIDE RECORDS SUMMARY | 2025-07-17 10:34 | XMS_ITS | Encounter Summary ---
Author Organization [employer] Address [address] [facility] 7t [place] [address] Care Team Providers Care Police Communications Dispatcher Name Role Phone Vandana Stein MD Primary Care Pro vider Reason for Visit * Reason Comments Med Refill Encounter Details Date Type Department Care Team (Late st Contact Info) Description 10/05/2023 Refill [facility] [address] [phone] Ignacio Randolph MD 230 [place], [place] [phone] COVID-19 virus infection Social History Tobacco Use [...] Description 09/29/2025 2:30 PM EST Office Visit [facility] [address] [place] [address] Oren, Essence, OD 230 [place] [address] documented as of this encounter Visit Diagnoses Diagnosis COVID-19 virus infection documented in this encounter Additional Health Concerns Assessment Noted Time PHQ-9 Depression Total Score: 0 02/28/20 9:45 AM EDT documented as of this encounter Care Teams Police Communications Dispatcher Relationship Specialty Start Date End Date Vandana Stein MD 230 [place], [place] [phone] PCP - General Internal Medicine 03/02/23 documented as of this encounter
--- OUTSIDE RECORDS SUMMARY | 2025-07-17 10:34 | XMS_ITS | Encounter Summary ---
Author Organization [employer] Address [address] [place] [address] 7 [place] [address] Care Team Providers Care Learning And Development Manager Name Role Phone Vandana Stein MD Primary Care Pro vider Reason for Visit * Reason Onset Date Comments Med Refill 11/08/2024 Encounter Details Date Type Department Care Team (Late st Contact Info) Description 11/08/[address] [facility] 230 [place], [place] [phone] Vandana Stein MD 230 [place] [address] Chronic gout involving toe without tophus, unspecified [...] PM EST Office Visit [facility] OPTOMETRY [address] [place] [address] Essence Lott, KINJAL 230 [place], [place] [phone] documented as of this encounter Visit Diagnoses Diagnosis Chronic gout involving toe without tophus, unspecified cause, unspecified laterality documented in this encounter Additional Health Concerns Assessment Noted Time PHQ-9 Depression Total Score: 1 12/29/19 24 10:27 AM EDT documented as of this encounter Care Teams Learning And Development Manager Relationship Specialty Start Date End Date Vandana Stein MD 230 [place], [place] [phone] PCP - General Internal Medicine 03/02/23 documented as of this encounter
--- OUTSIDE RECORDS SUMMARY | 2025-07-17 10:34 | XMS_ITS | Encounter Summary ---
Author Organization [employer] Address [address] [place] [address] 7t [place] [address] Care Team Providers Care Brickmason Name Role Phone Reanna Vallejo MEDICATION TECHNICIAN Primary Care Provider Vandana Michael MD Primary Care Pro vider Reason for Visit * Reason Comments Med Refill Encounter Details Date Type Department Care Team (Late st Contact Info) Description 10/06/2022 Refill [facility] 230 [place] [address] Reanna Vallejo FNP Unstable angina (CMS/HCC) Social [...] [facility] OPTOMETRY [address] [place], [place] [phone] Essence Lott, OD 230 [place] [address] documented as of this encounter Visit Diagnoses Diagnosis Unstable angina (CMS/HCC) (HCC) Intermediate coronary syndrome documented in this encounter Care Teams Brickmason Relationship Specialty Start Date End Date Reanna Vallejo FNP PCP - General Family Medicine 05/07/22 03/01/23 Vandana Stein MD [address] [place] [address] PCP - General Internal Medicine 03/02/23 documented as of this encounter
--- OUTSIDE RECORDS SUMMARY | 2025-07-17 10:34 | XMS_ITS | Encounter Summary ---
Author Organization [employer] Address [address] [place] [address] 7 [place] [address] Care Team Providers Care Transit Mix Operator Name Role Phone Vandana Stein MD Primary Care Pro vider Reason for Visit * Reason Onset Date Comments PA 11/12/2023 Prior Authorization 11/12/2023 Encounter Details Date Type Department Care Team ([facility] st Contact Info) Description 11/12/2023 Telephone [facility] 230 [place], [place] [phone] Vandana Stein MD 230 [place], [place] [phone] PA; Prior Authorization Social History Tobacco Use [...] is your housing situation today? I have mrani eric 06/22/[address] you [...] Description 09/29/2025 2:30 PM EST Office Visit [facility] OPTOMETRY [address] [place] [address] Essence Lott, OD 230 [place] [address] documented as of this encounter Visit Diagnoses Not on filedocumented in this encounter Additional Health Concerns Assessment Noted Time PHQ-9 Depression Total Score: 0 02/28/20 9:45 AM EDT documented as of this encounter Care Teams Transit Mix Operator Relationship Specialty Start Date End Date Vandana Stein MD 230 [place] [address] PCP - General Internal Medicine 03/02/23 documented as of this encounter
--- OUTSIDE RECORDS SUMMARY | 2025-07-17 10:34 | XMS_ITS | Encounter Summary ---
Author Organization [employer] Address [address] [place] [address] 7t [place] [address] Care Team Providers Care Office Helper Clerical Name Role Phone Vandana Stein MD Primary Care Pro vider Reason for Visit * Reason Comments Med Refill Encounter Details Date Type Department Care Team ([facility] st Contact Info) Description 04/11/[address] [facility] MEDICINE 230 [place], [place] [phone] Vandana Stein MD 230 [place], [place] [phone] Social History Tobacco Use Types Packs/Day Years [...] PM EST Office Visit [facility] OPTOMETRY 267 [place] [address] Oren, Essence, OD 230 [place] [address] documented as of this encounter Visit Diagnoses Not on filedocumented in this encounter Additional Health Concerns Assessment Noted Time PHQ-9 Depression Total Score: 1 12/29/19 24 10:27 AM EDT documented as of this encounter Care Teams Office Helper Clerical Relationship Specialty Start Date End Date Vandana Stein MD 230 [place] [address] PCP - General Internal Medicine 03/02/23 documented as of this encounter
--- OUTSIDE RECORDS SUMMARY | 2025-07-17 10:34 | XMS_ITS | Encounter Summary ---
Author Organization [employer] Address [address] [facility] 7t [place] [address] Care Team Providers Care Silk Folder Name Role Phone Vandana Stein MD Primary Care Pro vider Reason for Visit * Reason Onset Date Comments Med Refill 03/25/2025 Encounter Details Date Type Department Care Team ([facility] st Contact Info) Description 03/25/2025 Refill [facility] MEDICINE 230 [place], [place] [phone] Vinod Dahl MD 230 [place] [address] Social History Tobacco Use Types Packs/Day Years [...] PM EST Office Visit [facility] OPTOMETRY 267 [place] [address] Essence Ltot, KINJAL 230 [place] [address] documented as of this encounter Visit Diagnoses Not on filedocumented in this encounter Additional Health Concerns Assessment Noted Time PHQ-9 Depression Total Score: 3 01/13/20 25 11:53 AM EDT documented as of this encounter Care Teams Silk Folder Relationship Specialty Start Date End Date Vandana Stein MD 230 [place], [place] [phone] PCP - General Internal Medicine 03/02/23 documented as of this encounter
--- OUTSIDE RECORDS SUMMARY | 2025-07-17 10:34 | XMS_ITS | Encounter Summary ---
Author Organization [employer] Address [address] [facility] 7t [place] [address] Care Team Providers Care Deposit Refund Clerk Name Role Phone Vandana Stein MD Primary Care Pro vider Reason for Visit * Reason Comments Med Refill Encounter Details Date Type Department Care Team (Late st Contact Info) Description 05/12/2025 Refill [facility] MED[facility]INE 230 [place], [place] [phone] Natalie Pavon, ANP 230 [place], [place] [phone] Chronic gout involving toe without tophus, unspecified [...] Description 09/29/2025 2:30 PM EST Office Visit [facility] OPTOMETRY 267 [place], [place] [phone] Essence Lott, OD 230 [place] [address] documented as of this encounter Visit Diagnoses Diagnosis Chronic gout involving toe without tophus, unspecified cause, unspecified laterality documented in this encounter Additional Health Concerns Assessment Noted Time PHQ-9 Depression Total Score: 3 01/13/20 25 11:53 AM EDT documented as of this encounter Care Teams Deposit Refund Clerk Relationship Specialty Start Date End Date Vandana Stein MD 230 [place], [place] [phone] PCP - General Internal Medicine 03/02/23 documented as of this encounter
--- OUTSIDE RECORDS SUMMARY | 2025-07-17 10:34 | XMS_ITS | Encounter Summary ---
Author Organization [employer] Address [address] [place] [address] [place], [place] [address] Care Team Providers Care Production Clerk Name Role Phone Vandana Stein MD Primary Care Pro vider Encounter Details Date Type Department Care Team (Late Contact Info) Description 04/01/2023 [facility] [employer] Information Management 230 [place], [place] [phone] Vandana Stein MD 230 [place] [address] Social History Tobacco Use Types Packs/Day Years [...] Description 09/29/2025 2:30 PM EST Office Visit [facility] OPTOMETRY 267 [place], [place] [phone] Oren, Essence, OD 230 [place], [place] [phone] documented as of this encounter Visit Diagnoses Not on filedocumented in this encounter Additional Health Concerns Assessment Noted Time PHQ-9 Depression Total Score: 0 02/28/20 9:45 AM EDT documented as of this encounter Care Teams Production Clerk Relationship Specialty Start Date End Date Vandana Stein MD [address] [place] [address] PCP - General Internal Medicine 03/02/23 documented as of this encounter
--- OUTSIDE RECORDS SUMMARY | 2025-07-17 10:34 | XMS_ITS | Encounter Summary ---
Author Organization [facility] Address [address] [place] [address] Care Team Providers Care Lawn Mower Operator Name Role Phone Vandana Stein Primary Care Provider +1- [phone] Encounter Details Date Type Department Care Team (Late st Contact Info) Description 09/29/2017 [employer] Message [facility] 4th floor Cardiology Medicine [address] [place] [address] Phone Manager: Mike Hess MD [address] [place] [address] [place] [address] RE: Prescription Question Social History Tobacco Use [...] on filedocumented in this encounter Care Teams Lawn Mower Operator Relationship Specialty Start Date End Date Vandana Stein 230 [place] [address] PCP - General 02/17/24 documented as of this encounter
--- OUTSIDE RECORDS SUMMARY | 2025-07-17 10:34 | XMS_ITS | Encounter Summary ---
Author Organization [employer] Address [address] [place] [address] 7 [place] [address] Care Team Providers Care Investment Trader Name Role Phone Vandana Stein MD Primary Care Pro vider Reason for Visit * Reason Onset Date Comments Med Refill 12/18/2024 Encounter Details Date Type Department Care Team ([facility] st Contact Info) Description 12/18/2024 Refill [facility] 230 [place], [place] [phone] Vandana Stein MD 230 [place] [address] Social History Tobacco Use Types Packs/Day Years [...] EST Office Visit [facility] [address] [place], [place] [phone] Oren, Essence, OD 230 [place] [address] documented as of this encounter Visit Diagnoses Not on filedocumented in this encounter Additional Health Concerns Assessment Noted Time PHQ-9 Depression Total Score: 1 12/29/19 24 10:27 AM EDT documented as of this encounter Care Teams Investment Trader Relationship Specialty Start Date End Date Vandana Stein MD 230 [place], [place] [phone] PCP - General Internal Medicine 03/02/23 documented as of this encounter
--- OUTSIDE RECORDS SUMMARY | 2025-07-17 10:34 | XMS_ITS | Encounter Summary ---
Author Organization [employer] Address [address] [place] [address] 7 [place] [address] Care Team Providers Care Word Processing Operator Name Role Phone Reanna Vallejo Primary Care Provider Vandana Michael MD Primary Care Pro vider Reason for Visit * Reason Comments Med Refill Encounter Details Date Type Department Care Team (Late st Contact Info) Description 08/12/2022 Refill [facility] MEDICINE 230 [place] [address] Zenon Lu MD [address] [place] [phone] Social History Tobacco Use Types Packs/Day Years [...] 2:30 PM EST Office Visit [facility] OPTOMETRY [address] [place] [address] Essence Lott, OD 230 [place] [address] documented as of this encounter Visit Diagnoses Not on filedocumented in this encounter Care Teams Word Processing Operator Relationship Specialty Start Date End Date Reanna Vallejo FNP PCP - General Family Medicine 05/07/22 03/01/23 Vandana Stein MD 230 [place] [address] PCP - General Internal Medicine 03/02/23 documented as of this encounter
--- OUTSIDE RECORDS SUMMARY | 2025-07-17 10:34 | XMS_ITS | Encounter Summary ---
Author Organization [employer] Address [address] [place] [address] [address] [address] Care Team Providers Care Larriman Helper Name Role Phone Reanna Vallejo Primary Care Provider Cici Vandana [place] MD Primary Care Pro vider Encounter Details Date Type Department Care Team (Latest Contact Info) Description 09/14/2018 Abstract [facility] CONVERSIONS Dental, Provider, DDS Social History Tobacco [...] [facility] [address] [place] [address] Essence Lott, OD 230 [place] [address] documented as of this encounter Visit Diagnoses Not on filedocumented in this encounter Care Teams Larriman Helper Relationship Specialty Start Date End Date Reanna Vallejo FNP PCP - General Family Medicine 05/07/22 03/01/23 Vandana Stein MD 230 [place] [address] PCP - General Internal Medicine 03/02/23 documented as of this encounter
--- OUTSIDE RECORDS SUMMARY | 2025-07-17 10:34 | XMS_ITS | Encounter Summary ---
Author Organization [facility] Address [address] [place] [address] Care Team Providers Care Personal Lines Sales Rep Name Role Phone Vandana Stein Primary Care Provider +1- [phone] Reason for Referral * Surgical (Routine) - Authorized Specialty Diagnoses / Procedures Referred By Martina feliciano Referred To Contact Vascular Surgery Diagnoses Claudication of both lower extremities [facility] Physician Referral Services [address] [place] [address] [facility] Vascular Surgery [address] [place] [address] Phone: tel: fax: Referral ID Status Reason Start Date Expiration Date Visits Requested Visits Authorized [id number] Authorized Specialty Services Required 01/31/2025 03/03/2026 6 6 Encounter Details Date Type Department Care Team (Latest Contact Info) Description 01/31/2025 [address] Orders [facility] Physician Referral Services [address] [place] [address] Vandana Stein 230 [place] [address] Claudication of both lower extremities (Primary Dx) [...] Primary documented in this encounter Care Teams Personal Lines Sales Rep Relationship Specialty Start Date End Date Vandana Stein [address] [place] [address] PCP - General 02/17/24 documented as of this encounter
--- OUTSIDE RECORDS SUMMARY | 2025-07-17 10:34 | XMS_ITS | Clinical Summary ---
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 Stent Left: Coronary [employer] [id number] 04/30/2018 14255-57 30 / 0 / [id number] System Stent Coronary Monorail Drug Eluting Bioabsorbable Polymer [id number] Synergy - S0 - [id number] Implanted:Qty: 1 on 09/04/2017 by Chris Reyes MD at [facility] Stent Left: Coronary [employer] [id number] 07/08/2018 [id number] 25 / 0 / [id number] System Stent Coronary Monorail Drug Eluting Bioabsorbable Polymer [id number] Synergy - S0 - [id number] Implanted:Qty: 1 on 09/04/2017 by Chris Reyes MD at [facility] Stent Right: Coronary [employer] [id number] 05/11/2018 77723-19 / 0 / [id number] Procedures * Due to [place] law, this organization might not be sharing negative HIV tests. Procedure Name Priority Date/Time Associated Diagnosis Comments BASIC METABOLIC PANEL STAT 09/05/2017 9:32 AM EST from Last 3 Months or Most Recently Relevant to Health Maintenance Results * Due to [place] law, this organization might not be sharing negative HIV tests. * (ABNORMAL) Basic Metabolic Panel (09/05/2017 9:32 AM EST) NA 136 135 - 145 mmol/L 09/05/2017 10:40 AM EST [facility] [employer] K 4.0 3.5 - 5.3 mmol/L 09/05/2017 10:40 AM EST [facility] [employer] Cl 100 97 - 110 mmol/L 09/05/2017 10:40 AM EST [facility] [employer] CO2 27 24 - 32 mmol/L 09/05/2017 10:40 AM EST [facility] [employer] BUN 26(H) 7 - 23 mg/dL 09/05/2017 10:40 AM EST [facility] [employer] Creatinine 1.27 0.60 - 1.30 mg/dL 09/05/2017 10:40 AM EST [facility] [employer] Glucose 123(H) 70 - 99 mg/dL 09/05/2017 10:40 AM EST [facility] [employer] Calcium 9.5 8.7 - 10.7 mg/dL 09/05/2017 10:40 AM EST [facility] [employer] Anion Gap 9 5 - 15 09/05/2017 10:40 AM EST [facility] [facility] eGFR Non- 57(L) >=90 mL/min/BSA 09/05/2017 10:40 AM EST [facility] [facility] Comment: Units = [...] EST 09/05/2017 9:58 AM EST Angela Acevedo INTERIOR PAINTER LAB BLOOD ORDERABLES Final R esult [facility] [employer] [address] [place] [address], from Last 3 Months or Most Recently [...] 9:36 AM 09/03/2017 11:20 AM Care Teams Team Guide Relationship Specialty Start Date End Date Vandana Stein [address] [place] [address] PCP - General 02/17/24
--- OUTSIDE RECORDS SUMMARY | 2025-07-17 10:34 | XMS_ITS | Encounter Summary ---
Author Organization [employer] Address [address] [facility] 7t [place] [address] Care Team Providers Care Public Health Technologist Name Role Phone Vandana Stein MD Primary Care Pro vider Reason for Visit * Reason Onset Date Comments Med Refill 03/25/2025 Encounter Details Date Type Department Care Team (Late st Contact Info) Description 03/25/2025 Refill [facility] MEDICINE 230 [place], [place] [phone] Sandrita Dorman MD 230 [place] [address] Social History Tobacco Use Types Packs/Day Years [...] Description 09/29/2025 2:30 PM EST Office Visit [facility] OPTOMETRY [address] [place], [place] [phone] Essence Lott, KINJAL 230 [place] [address] documented as of this encounter Visit Diagnoses Not on filedocumented in this encounter Additional Health Concerns Assessment Noted Time PHQ-9 Depression Total Score: 3 01/13/20 25 11:53 AM EDT documented as of this encounter Care Teams Public Health Technologist Relationship Specialty Start Date End Date Vandana Stein MD 230 [place], [place] [phone] PCP - General Internal Medicine 03/02/23 documented as of this encounter
--- OUTSIDE RECORDS SUMMARY | 2025-07-17 10:34 | XMS_ITS | Encounter Summary ---
Author Organization [employer] Address [address] [place] [address] 7 [place] [address] Care Team Providers Care Maintenance Carpenter Name Role Phone Vandana Setin MD Primary Care Pro vider Reason for Visit * Reason Onset Date Comments Med Refill 11/14/2024 Encounter Details Date Type Department Care Team ([facility] st Contact Info) Description 11/14/2024 Refill [facility] MEDICINE 230 [place], [place] [phone] Vandana Stein MD 230 [place] [address] Social History Tobacco Use Types Packs/Day Years [...] Visit [facility] OPTOMETRY [address] [place], [place] [phone] Oren, Essence, OD 230 [place] [address] documented as of this encounter Visit Diagnoses Not on filedocumented in this encounter Additional Health Concerns Assessment Noted Time PHQ-9 Depression Total Score: 1 12/29/19 24 10:27 AM EDT documented as of this encounter Care Teams Maintenance Carpenter Relationship Specialty Start Date End Date Vandana Stein MD 230 [place], [place] [phone] PCP - General Internal Medicine 03/02/23 documented as of this encounter
--- OUTSIDE RECORDS SUMMARY | 2025-07-17 10:34 | XMS_ITS | Encounter Summary ---
Author Organization [employer] Address [address] [facility] 7t [place] [address] Care Team Providers Care Grounds Worker Name Role Phone Vandana Stein MD Primary Care Pro vider Reason for Visit * Reason Comments Med Refill Encounter Details Date Type Department Care Team (Late st Contact Info) Description 10/08/2023 Refill [facility] [address] [place] [address] [phone] Ignacio Randolph MD 230 [place], [place] [phone] COVID-19 virus infection Social History Tobacco Use [...] Description 09/29/2025 2:30 PM EST Office Visit [facility] OPTOMETRY [address] [place], [place] [phone] Essence Lott, OD 230 [place] [address] documented as of this encounter Visit Diagnoses Diagnosis COVID-19 virus infection documented in this encounter Additional Health Concerns Assessment Noted Time PHQ-9 Depression Total Score: 0 02/28/20 9:45 AM EDT documented as of this encounter Care Teams Grounds Worker Relationship Specialty Start Date End Date Vandana Stein MD 230 [place] [address] PCP - General Internal Medicine 03/02/23 documented as of this encounter
--- OUTSIDE RECORDS SUMMARY | 2025-07-17 10:34 | XMS_ITS | Encounter Summary ---
Author Organization [facility] Address [address] [place] [address] Care Team Providers Care Business Development Intern Name Role Phone Vandana Stein Primary Care Provider +1- [phone] Encounter Details Date Type Department Care Team (Late st Contact Info) Description 05/06/2023 Orders Only [facility] Interventional Radiology [address] [place] [address] Shantanu Rutledge DO [address] [place] [address] Social History Tobacco Use Types Packs/Day Years [...] on filedocumented in this encounter Care Teams Business Development Intern Relationship Specialty Start Date End Date Vandana Stein [address] [place] [address] PCP - General 02/17/24 documented as of this encounter
--- OUTSIDE RECORDS SUMMARY | 2025-07-17 10:34 | XMS_ITS | Clinical Summary ---
Author Organization [employer] Address [address] [place] [address] 7[address] [place] [address] Care Team Providers Care Screw Machine Operator Name Role Phone Vandana Stein MD [...] 08/11/20 24 Active gabapentin (Neurontin) 100 MG capsuleIndicatio ns:Neuropathy 1 capsule at bedtime 30 capsule 1 01/13/20 25 Active traZODone (Desyrel) 50 MG tablet Take 1 tablet (50 mg) by mouth at bedtime. 90 tablet 01/13/20 25 Active ezetimibe (Zetia) 10 MG tablet TAKE 1 TABLET BY MOUTH EVERY DAY 90 tablet 1 02/01/20 25 Active Aspirin Low Dose 81 MG EC tabletIndication s:Coronary artery disease involving [place] coronary artery of [place] heart with angina pectoris TAKE 1 TABLET BY MOUTH EVERY DAY 90 tablet 1 02/01/20 25 Active doxazosin (Cardura) 2 MG tabletIndication s:Benign prostatic hyperplasia with nocturia TAKE 1 TABLET BY MOUTH EVERY DAY 30 tablet 5 02/07/20 25 Active fluticasone (Flonase) 50 MCG/ACT nasal sprayIndications :Cough in adult patient USE 1 SPRAY IN [...] 25 Active D3-1000 25 MCG (1000 UT) capsuleIndicatio ns:Vitamin D deficiency TAKE 1 CAPSULE BY MOUTH EVERY MORNING 90 capsule 1 05/09/20 25 Active allopurinol (Zyloprim) 300 MG tabletIndication s:Chronic gout involving toe without tophus, unspecified cause, unspecified laterality Take 1 tablet (300 mg) by mouth Once per day. TAKE 1 TABLET BY MOUTH DAILY IN THE MORNING 90 tablet 05/12/20 25 026 Active hydroCHLOROthiaz kirsten 12.5 MG tablet TAKE 1 TABLET BY MOUTH ONCE DAILY 90 tablet 1 06/12/20 25 Active acebutolol (Sectral) 200 MG capsuleIndicatio ns:Essential hypertension TAKE 1 CAPSULE BY MOUTH TWICE DAILY 180 capsule 1 06/12/20 25 Active amLODIPine (Norvasc) 10 MG tablet TAKE 1 TABLET BY MOUTH ONCE DAILY 90 tablet 1 06/16/20 25 Active telmisartan (MIcarDIS) 80 MG tablet TAKE 1 TABLET BY MOUTH EVERY DAY 30 tablet 2 06/27/20 25 Active sulfamethoxazole -trimethoprim (Bactrim DS) 800-160 MG tablet Take 1 tablet by mouth 2 times daily for 7 days. 14 tablet 07/14/20 25 025 Active telmisartan (MIcarDIS) 80 MG tablet TAKE 1 TABLET BY MOUTH EVERY DAY 30 tablet 2 03/27/20 25 025 Discontinued Active Problems Problem Noted Date Diagnosed Date Paresthesias 01/13/2025 CKD stage 3a, GFR 45-59 ml/min ([facility]) 024 Insomnia 07/12/2024 Diabetes mellitus 02/02/2024 Normocytic [...] pain is still present. Care managed by [facility] V[facility], next appt 03/31/23 RUEL was [...] PPM. -Stable for now. Care managed by [facility] Cardiology. 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 Care managed by [facility] appt 03/31/23 RUEL was normal on 11/27/22. [...] Description 07/14/2025 10:00 AM EST Office Visit [facility] [address] [place] [address] [phone] Graef, Cira, GAUGE AND INSTRUMENT INSPECTOR Right upper quadrant abdominal pain (Primary Dx); UTI symptoms; Gross hematuria 07/14/2025 Telephone [facility] [address] [place] [address] Vandana Stein MD 07/14/2025 Travel 07/06/2025 Travel 06/26/2025 Refill [facility] [address] [place] [address] Vandana Stein MD 06/18/2025 Refill [facility] [address] [place] [address] Vandana Stein MD 06/15/2025 Refill [facility] [address] [place] [address] Vandana Stein MD 06/11/2025 Refill [facility] [address] [place] [address] Vandana Stein MD Essential hypertension 06/11/2025 Refill [facility] [address] [place] [address] Natalie Pavon ANP Essential hypertension 05/12/2025 Refill [facility] [address] [place] [address] Natalie Pavon ANP Chronic gout involving toe without tophus, unspecified cause, unspecified laterality 05/12/2025 Refill [facility] [address] [place] [address] Jimmy Tiwari MD Chronic gout involving toe without tophus, unspecified cause, unspecified laterality 05/08/2025 Refill [facility] [address] [place] [address] Zayra Navarrete MD Vitamin D deficiency from [...] Description 09/29/2025 2:30 PM EST Office Visit [facility] [address] [place] [address] Oren, Essence, OD [address] [place] [address] Health Maintenance Due Date Last Done Comments Diabetes: Urine Protein Screening 07/07/2025 07/07/2024 Lipid Panel 07/07/2025 07/07/2024, 01/06, 03/23/2023, Additional history exists Diabetes: Foot Exam [...] Procedure Name Priority Date/Time Associated Diagnosis Comments C-REACTIVE PROTEIN Routine 07/14/2025 10 :50 AM EST UTI symptoms SED RATE BY MODIFIED WESTERGREN Routine 07/14/2025 10:50 AM EST UTI symptoms PSA, TOTAL WITH REFLEX TO PSA, FREE Routine 07/14/2025 10:50 AM EST UTI symptoms Gross hematuria CBC WITH AUTO DIFFERENTIAL Routine 07/14/2025 10:50 AM EST UTI symptoms Right upper quadrant abdominal pain COMPREHENSIVE METABOLIC PANEL Routine 07/14/2025 10:50 AM EST UTI symptoms Right upper quadrant abdominal pain CULTURE, URINE, ROUTINE Routine 07/14/20 25 10:49 AM EST UTI symptoms POCT URINALYSIS DIPSTICK Routine 07/14/2025 10:12 AM EST UTI symptoms POCT GLYCATED HEMOGLOBIN, TOTAL Routine 01/12/2025 12:02 PM EDT Type 2 diabetes mellitus with other specified complication, without long-term current use of insulin (CMS/HCC) FECAL GLOBIN BY IMMUNOCHEMISTRY Routine 07/21/2024 12:00 [...] Recently Relevant to Health Maintenance Results * PSA, Total With Reflex to PSA, Free (07/14/2025 10:50 AM EST) PSA,Total (Free>4and<10) 2.65 0.00 - 4.00 ng/mL [facility] Comment:A Free PSA was not p [...] AM EST 07/14/2025 1:00 PM EST us Cira Gomez GAUGE AND INSTRUMENT INSPECTOR LAB BLOOD ORDERABLES Final Resul t [facility] [address] [place], [place] [phone] * (ABNORMAL) CBC auto differential (07/14/2025 10:50 AM EST) White Blood Count 6.2 4.8 - 10.8 X10*3/uL [facility] Red Blood Count 4.24(L) 4.60 - 5.80 X10*6/uL [facility] Hemoglobin 12.1(L) 14.0 - 18.0 g/dl [facility] Hematocrit 37.9(L) 42.0 - 52.0 % [facility] Mean Corpuscular Volume 89.4 80.0 - 98.0 fL [facility] Mean Corpuscular Hemoglobin 28.5 27.0 - 33.0 pg [facility] Mean Corpuscular HGB Conc 31.9 31.0 - 36.0 g/dl [facility] Red Cell Distribution Width 14.3 11.0 - 16.0 % [facility] Platelet Count 276 160 - 400 X10*3/uL [facility] Mean Platelet Volume 11.8 9.4 - 12.4 fL [facility] Neutrophils Percent Auto 69.4 45 - 73 % [facility] Imm Gran Pct Auto 0.5(H) 0.0 - 0.4 % [facility] Lymphocytes Percent Auto 20.6 20 - 40 % [facility] Monocytes Percent Auto 7.4 2 - 11 % [facility] Eosinophils Percent Auto 1.8 0 - 4 % [facility] Basophils Percent Auto 0.3 0 - 2 % [facility] NRBC Pct Auto 0.0 0.0 - 0.2 /100WBC [facility] Neutrophils Absolute Auto 4.3 2.0 - 8.3 x10*3/uL [facility] Imm Gran Abs Auto 0.03 0.00 - 0.03 X10*3/uL [facility] Lymphocytes Absolute Auto 1.3 1.2 - 4.9 X10*3/uL [facility] Monocytes Absolute Auto 0.5 0.1 - 1.2 X10*3/uL [facility] Eosinophils Absolute Auto 0.1 0.0 - 0.4 X10*3/uL [facility] Basophils Absolute Auto 0.0 0.0 - 0.2 X10*3/uL [facility] NRBC Abs Auto 0.000 0.0 - 0.012 X10*3/uL [facility] Blood Venous blood specimen / Unknown 07/14/2025 10:50 AM EST 07/14/2025 1:00 PM EST Cira Gomez NP LAB BLOOD ORDERABLES Final Resul t Performing Organization Address [facility] de Phone Number [facility] [address] [place] [phone] * (ABNORMAL) Sed Rate by Modified Osbaldoren (07/14/2025 10:50 AM EST) Erythrocyte Sedimentation Rate 38(H) 0 - 15 MM/HR [facility] Comment:Patients with polycy themia and many hemoglobin abnormalitiesmay have depressed sed rates whereas patients with anemiamay have elevated sed rates. Blood Venous blood specimen / Unknown 07/14/2025 10:50 AM EST 07/14/2025 1:00 PM EST Cira Gomez NP LAB BLOOD ORDERABLES Final Resul t Performing Organization Address City/[facility] Co de Phone Number [facility] [address] [place] [address] [phone] * (ABNORMAL) C-reactive Protein (07/14/2025 10:50 AM EST) Pathologist [facility] C Reactive Protein 0.85(H) < or = 0.50 mg/dL [facility] Blood Venous blood specimen / Unknown 07/14/2025 10:50 AM EST 07/14/2025 1:00 PM EST us Cira Gomez NP LAB BLOOD ORDERABLES Final Resul t [facility] [address] [place] [phone] * (ABNORMAL) Comprehensive Metabolic Panel (07/14/2025 10:50 AM EST) [facility] Sodium 140 135 - 145 mmol/L [facility] Potassium 4.2 3.3 - 5.1 mmol/L [facility] Chloride 102 96 - 108 mmol/L [facility] Carbon Dioxide 29 22 - 29 mmol/L [facility] Anion Gap 13 12 - 20 [facility] Urea Nitrogen (BUN) 36(H) 9 - 16 mg/dL [facility] Creatinine, Serum 1.60(H) 0.5 - 1.4 mg/dL [facility] Estimated Glomerular Filt Rate 42 [facility] Comment:Chronic Kidney Disea se: Estimated GFR < 60 mL/min/[id number] Kidney Disease: Estimated GFR < 15 mL/min/1.73m2 Glucose 118(H) 60 - 115 mg/dL [facility] Calcium 9.9 8.4 - 10.2 mg/dL [facility] Bilirubin, Total 1.3(H) 0.0 - 1.0 mg/dL [facility] Aspartate Amino Transferase 163(H) 5 - 37 U/L [facility] Alanine Aminotransferase 187(H) 0 - 40 U/L [facility] Total Protein 7.8 6.5 - 8.0 g/dL [facility] Albumin Level 4.6 3.5 - 5.0 g/dL [facility] Alkaline Phosphatase 49 39 - 117 U/L [facility] Blood Venous blood specimen / Unknown 07/14/2025 10:50 AM EST 07/14/2025 1:00 PM EST Cira Gomez GAUGE AND INSTRUMENT INSPECTOR LAB BLOOD ORDERABLES Final Resul t Performing Organization Address [facility] Co de Phone Number [facility] [address] [place] [phone] * Culture, Urine, Routine (07/14/2025 10:49 AM EST) Urine Urine specimen obtained by clean catch procedure / Unknown 07/14/2025 10:49 AM EST 07/14/2025 1:07 PM EST Comment:UACC Narrative [facility] - 07/15/2025 1:30 PM EST Urine Culture No growth. Specimen Source: Urine clean catch Cira Gomez NP LAB MICROBIOLOGY - GENERAL ORDER DEREK Final Result Performing Organization Address [facility] Co de Phone Number [facility] [address] [place] [phone] * POCT urinalysis dipstick manually resulted (CPT 64022) (07/14/2025 10:12 AM EST) Color, UA Yellow Clarity, UA Clear Glucose, UA Negative Bilirubin, UA Negative Ketones, UA Negative Spec Grav, UA 1.015 Blood, UA Negative Negative, None Detected pH, UA 5.5 Protein, UA Negative Urobilinogen, UA 0.2 Leukocytes, UA Negative Negative, Rare, Trace Nitrite, UA Negative Negative, None Detected Appearance, UA Ok Urine (Urine, Random) 07/14/2025 10:12 AM EST Cira Gomez GAUGE AND INSTRUMENT INSPECTOR POINT OF CARE TEST ENTER/EDIT OR DERABLES Final Result * (ABNORMAL) POCT HGB A1C (01/12/2025 12:02 PM EDT) Pathologist [facility] Hemoglobin A1C 6.2(A) 4.0 - 6.0 % QC Media Lot # [id number] Lot# Expiration Date Blood 01/12/2025 12:0 2 PM EDT Vandana De Dios MD POINT OF CARE STEPHANIE T ENTER/EDIT ORDERABLES Final Result * Fecal Globin by Immunochemistry (07/21/2024 12:00 AM EST) Pathologist [facility] Fecal Globin By Immunochemistry SEE NOTE [facility] [place] [employer] Comment: FECAL GLOBIN BY IMMUNOCHEMISTRY Micro Number: [id number] Test Status: Final Specimen Source: Insure (tm) fobt test card Specimen Quality: Adequate Fecal Globin: Not Detected 07/21/2024 07/29/2024 5:5 8 AM EST Narrative [facility] - 07/29/2024 10:25 AM EST FASTING: UNKNOWN Vandana De Dios MD LAB BODY FLUIDS A ND STOOLS ORDERABLES Final Result [address], [place] [phone] [facility] [place] [facility] [address] [place] [phone] * Albumin, Random Urine W/Creatinine (07/07/2024 8:20 AM EDT) Pathologist [facility] Creatinine, Urine 88.27 mg/dL [facility] Microalbumin Urine 12.0 mg/L [facility] Microalbum Creatinine Ratio Ur 13.5 <30 ug/mg cr [facility] Comment:Albumin/Creatinine R at Reference Ranges: Normal: < 30 ug/mg creatinine Microalbuminuria: 30 - 300 ug/mg creatinineClinical Albuminuria: > 300 ug/mg creatinine Urine (Urine, Random) 07/07/2024 8:20 AM EDT 07/07/2024 10:56 AM EDT us Vandana De Dios MD LAB URINE ORDERAB LES Final Result Performing Organization Address [facility]/ZIP Co de Phone Number [facility] [address] [place] [address] [phone] * Lipid Panel, Standard (07/07/2024 8:18 AM EDT) Triglycerides 115 <150 mg/dL [facility] Comment:Desirable Triglyceri de: less than 150 mg/dLBorderline High Triglyceride 150-199 mg/dLHigh Triglyceride: 200-499 mg/dLVery High Triglyceride: greater than or equal to 5OO mg/dL Cholesterol 168 <200 mg/dL [facility] Comment:Desirable Cholestero l: less than 200 mg/dLBorderline High Cholesterol: 200-239 mg/dLHigh Cholesterol: greater than 239 mg/dL LDL Cholesterol Calculated 96 <100 mg/dL [facility] Comment:Desirable LDL: less than 100 mg/dLNear Optimal/Above Optimal LDL: 110- 129 mg/dLBorderline High LDL: 130-159 mg/dLHigh LDL: 160-189 mg/dLVery High LDL: greater than or equal to 190 mg/dL HDL Cholesterol 49 >40 mg/dL [facility] Comment:Desirable HDL: great er than 40 mg/dL Note: This HDL assay may give artificially low results in patients with liver disease. Blood Venous blood specimen / Unknown 07/07/2024 8:18 AM EDT 07/07/2024 10:54 AM EDT us Vandana De Dios MD LAB BLOOD ORDERAB LES Final Result Performing Organization Address City/[facility]/ZIP Co de Phone Number [facility] [address] [place] [address] [phone] * Hepatitis C Antibody with Reflex to HCV, RNA, Quantitative, Real-Time PCR (01/28/2024 8:03 AM EDT) Hepatitis C Antibody Nonreactive Nonreactive [facility] Comment:Antibodies to HCV no t detected; does not exclude early acuteHCV infection. Blood Venous blood specimen / Unknown 01/28/2024 8:03 AM EDT 01/28/2024 11:29 AM EDT Vandana De Dios MD LAB BLOOD ORDERAB LES Final Result [facility] [address] [place] [address] [phone] from Last 3 Months or Most Recently Relevant to Health Maintenance Insurance [facility] Care Teams Screw Machine Operator Relationship Specialty Start Date End Date Vandana Stein MD [address] [place] [phone] PCP - General Internal Medicine 03/02/23
--- OUTSIDE RECORDS SUMMARY | 2025-07-17 10:34 | XMS_ITS | Encounter Summary ---
Author Organization [employer] Address [address] [place] [address] 7 [place] [address] Care Team Providers Care Precinct Commanding Officer Name Role Phone Vandana Stein MD Primary Care Pro vider Reason for Visit * Reason Onset Date Comments call back requested 10/19/2023 Encounter Details Date Type Department Care Team ([facility] st Contact Info) Description 10/19/2023 Telephone [facility] [address] [place], [place] [phone] Vandana Stein MD [address] [place], [place] [phone] call back requested Social History Tobacco Use [...] call day to schedule an appt but clinical writer don't see any notes about appt. PCP Dr. De Dios documented in this encounter Plan of Treatment Upcoming Encounters Date Type Department Care Team (Late st Contact Info) Description 09/29/2025 2:30 PM EST Office Visit [facility] [address] [place] [address] Essence Lott, OD [address] [place] [address] documented as of this encounter Visit Diagnoses Not on filedocumented in this encounter Additional Health Concerns Assessment Noted Time PHQ-9 Depression Total Score: 0 02/28/20 9:45 AM EDT documented as of this encounter Care Teams Precinct Commanding Officer Relationship Specialty Start Date End Date Vandana Stein MD [address] [place] [address] PCP - General Internal Medicine 03/02/23 documented as of this encounter
--- OUTSIDE RECORDS SUMMARY | 2025-07-17 10:35 | XMS_ITS | Encounter Summary ---
Author Organization [email or web address] Address [address] [facility] [address]t [place] [address] Care Team Providers Care Automotive Technician Instructor Name Role Phone Vandana Stein MD Primary Care Pro vider Encounter Details Date Type Department Care Team ([facility] st Contact Info) Description 07/14/2025 Telephone [facility] [address] [place] [address] [phone] Vandana Stein MD [address] [place], [place] [phone] Social History Tobacco Use Types Packs/Day Years [...] encounter Miscellaneous Notes * Telephone Encounter - Hetal Morales RN - 07/14/2025 3:37 PM EST Pt had visit in [facility] 07/14/25, is scheduled for STAT imaging 07/17/25 but provider would like to encourage pt to speak with managed care about insurance. Will task to call 07/17/25. documented in this encounter Plan of Treatment Upcoming Encounters Date Type Department Care Team (Late st Contact Info) Description 09/29/2025 2:30 PM EST Office Visit [facility] OPT[facility] [address] [place] [address] Oren, Essence, OD [address] [place] [address] documented as of this encounter Visit Diagnoses Not on filedocumented in this encounter Additional Health Concerns Assessment Noted Time PHQ-9 Depression Total Score: 3 01/13/20 25 11:53 AM EDT documented as of this encounter Care Teams Automotive Technician Instructor Relationship Specialty Start Date End Date Vandana Stein MD [address] [place] [phone] PCP - General Internal Medicine 03/02/23 documented as of this encounter
--- OUTSIDE RECORDS SUMMARY | 2025-07-17 10:35 | XMS_ITS | Encounter Summary ---
Author Organization [employer] Address [address] [facility] [address] [place] [address] Care Team Providers Care Cardiac Tech Name Role Phone Vandana Stein MD [...] Description 09/29/2025 2:30 PM EST Office Visit [facility] [address] [place] [address] Essence Lott, OD [address] [place] [address] documented as of this encounter Visit Diagnoses Not on filedocumented in this encounter Additional Health Concerns Assessment Noted Time PHQ-9 Depression Total Score: 3 01/13/20 25 11:53 AM EDT documented as of this encounter Care Teams Cardiac Tech Relationship Specialty Start Date End Date Vandana Stein MD [address] [place] [address] PCP - General Internal Medicine 03/02/23 documented as of this encounter
--- OUTSIDE RECORDS SUMMARY | 2025-07-17 10:35 | XMS_ITS | Encounter Summary ---
Author Organization [employer] Address [address] [place] [address] [address] [place] [address] Care Team Providers Care Features Editor Name Role Phone Vandana Stein MD Primary Care Pro vider Reason for Visit * Reason Comments Med Refill Encounter Details Date Type Department Care Team ([facility] st Contact Info) Description 06/18/2025 Refill [facility] [address] [place], [place] [phone] Vandana Stein MD [address] [place] [address] Social History Tobacco Use Types Packs/Day Years [...] PM EST Office Visit [facility] [address] [place] [address] Essence Lott, KINJAL [address] [place] [address] documented as of this encounter Visit Diagnoses Not on filedocumented in this encounter Additional Health Concerns Assessment Noted Time PHQ-9 Depression Total Score: 3 01/13/20 25 11:53 AM EDT documented as of this encounter Care Teams Features Editor Relationship Specialty Start Date End Date Vandana Stein MD [address] [place], [place] [phone] PCP - General Internal Medicine 03/02/23 documented as of this encounter
== END 2025-07-17 09:31 | disposition home or self-care (01) ==
LOC: HO.US 09:30
PROVIDERS: Visit Provider Nurse Practitioner Family
DX: R10.11 Right upper quadrant pain (principal)
CPT/HCPCS: 76705

== ENCOUNTER → 2025-07-17 10:04 | Outpatient (BNV) | payer SELFPAY | PROVIDERS: Visit Provider Radiology Diagnostic Radiology | DX: R16.0 Hepatomegaly, not elsewhere classified (principal); K76.0 Fatty (change of) liver, not elsewhere classified; N28.1 Cyst of kidney, acquired | CPT/HCPCS: 76705 ==

== ENCOUNTER 2025-08-14 08:14 | Outpatient (REF) | payer OTHER, SELFPAY ==
[2025-08-14 12:31] LABS: Lipase 61 U/L (8-78)
== END 2025-08-14 08:15 | disposition home or self-care (01) ==
LOC: HO.HHCL 08:14
PROVIDERS: PCP Nurse Practitioner Family; Visit Provider Nurse Practitioner Family
DX: R10.11 Right upper quadrant pain (principal)
CPT/HCPCS: 36415; 83690